=== PATIENT | female | born 1940 | race Caucasian/White ===

== ENCOUNTER 2016-05-22 11:56 | Outpatient (CLI) | payer MEDICARE, OTHER | END 2016-05-22 11:57 | disposition home or self-care (01) | DX: R50.2 Drug induced fever (principal); R19.7 Diarrhea, unspecified ==

== ENCOUNTER 2016-08-21 10:21 | Outpatient (CLI) | payer MEDICARE, OTHER | END 2016-08-21 10:22 | disposition home or self-care (01) | DX: R91.8 Other nonspecific abnormal finding of lung field (principal) ==

== ENCOUNTER 2016-09-09 17:56 | Outpatient (CLI) | payer MEDICARE, OTHER | END 2016-09-09 17:57 | disposition critical access hospital (66) | DX: S01.81XA Laceration without foreign body of other part of head, initial encounter (principal); W07.XXXA Fall from chair, initial encounter; W22.8XXA Striking against or struck by other objects, initial encounter; Y92.008 Other place in unspecified non-institutional (private) residence as the place of occurrence of the external cause | CPT/HCPCS: A0425; A0429 ==

== ENCOUNTER 2016-09-09 18:18 | Emergency (ER) | payer MEDICARE, OTHER ==
[2016-09-09] MEDS ORDERED: ACETAMINOPHEN 325 MG TABLET PO STA (19:03)
--- NOTE | 2016-09-09 19:03 | ED Physician Documentation ---
PD HPI HEAD INJURY - Stated complaint Stated Complaint: HEAD LAC - Chief complaint Chief Complaint: Laceration - History obtained from History obtained from: Patient - History of Present Illness Mechanism of head injury: Fell (She has chronically bad balance, she was getting out of a chair and slipped and hit the edge of the door with her forehead. No loss of consciousness. She has a mild headache and mild bilateral knee pain. She is up-to-date on tetanus. She is not anticoagulated.) Review of Systems Constitutional: denies: Fever, Chills Nose: denies: Rhinorrhea / runny nose, Congestion Respiratory: denies: Dyspnea, Cough GI: denies: Abdominal Pain, Nausea, Vomiting PD PAST MEDICAL HISTORY - Present Medications Home Medications: Ambulatory Orders Medication Instructions Recorded Confirmed Acyclovir 1 tab PO .FREQ 09/09/16 09/09/16 Acyclovir [Zovirax] 0 mg TOP .FREQ 09/09/16 09/09/16 Ezetimibe [Zetia] 1 tab PO DAILY 09/09/16 09/09/16 Furosemide [Lasix] 1 tab PO .FREQ 09/09/16 09/09/16 [place]-3 Acid Ethyl Esters [Lovaza] 1 tab PO DAILY 09/09/16 09/09/16 Telmisartan/Hydrochlorothiazid 0.5 tab PO DAILY 09/09/16 09/09/16 [Micardis Hct 40-12.5 mg Tablet] - Allergies Allergies/Adverse Reactions: Allergies Allergy/AdvReac Type Severity Reaction Status Date / Time gabapentin [From Neurontin] Allergy Unknown Verified 09/09/16 18:30 PD ED PE NORMAL - Vitals Vital signs reviewed: Yes - General General: Alert and oriented X 3, No acute distress - HEENT HEENT: PERRL, EOMI, Other (8cm vertical laceration right in the middle of the forehead) - Neck Neck: Supple, no meningeal sign, No bony TTP - Extremities Extremities: Other (Mild tenderness both anterior knees with good range of motion, no other extremity tenderness.) - Neuro Neuro: Alert and oriented X 3, surface plate finisher 2-12 intact, No motor deficit, No sensory deficit, Normal speech - Psych Psych: Normal mood, Normal affect Results - Vitals Vitals: Vital Signs - 24 hr 09/09/16 09/09/16 18:28 22:27 Temperature 36.3 C L Heart Rate 69 76 Respiratory 18 16 Rate Blood Pressure 144/73 H 138/74 H O2 Saturation 100 100 Oxygen O2 Source Room air - Rads (name of study) CT head Radiology: EMP read contemporaneously (No acute process, possible 10 mm right internal carotid aneurysm) Bilateral knee x-rays Radiology: EMP read contemporaneously (Left knee osteoarthritis, right knee arthroplasty, no acute disease) CT Cspine Radiology: EMP read contemporaneously (Dege3n chgs) Procedures - Laceration (location) face Length in cm: 8 Wound type: Linear Anesthesia: Lidocaine 1% with epi Wound Preparation: Irrigated copiously NS Skin layer closure: Other (Below the hairline a running 6-0 suture was placed, above the hairline a few interrupted 5-0 Vicryls were placed.) Other: Tetanus UTD Complexity: Simple PD MEDICAL DECISION MAKING - ED course ED course: Discussed results of CT and need for followup MRA with patient. She did have more neck pain after initial evaluation was sent back for CT of the neck. Departure - Departure Disposition: 01 Home, Self Care Clinical Impression: Neck pain Facial laceration Qualifiers: Encounter type: initial encounter Qualified Code(s): S01.81XA - Laceration without foreign body of other part of head, initial encounter Fall Qualifiers: Encounter type: initial encounter Qualified Code(s): W19.XXXA - Unspecified fall, initial encounter Head injury Qualifiers: Encounter type: initial encounter Qualified Code(s): S09.90XA - Unspecified injury of head, initial encounter Condition: Good Record reviewed to determine appropriate education?: Yes Instructions: ED Laceration Facial Sutr Tape Comments: As discussed there is a possible aneurysm in the right internal carotid artery a CAT scan, call Dr. rome on Sunday care. He will arrange for further testing for you. Wash the wound briefly but in general keep it dry and covered. Come back for any signs of infection which would include: Redness, swelling, drainage, increased pain, or fevers. Followup with your doctor in 6 days for suture removal. Your blood pressure was elevated today on check in to the emergency department. This does not mean that you have hypertension, it is a common phenomenon to check into the emergency department and have elevated blood pressure. I recommend that you see your primary care physician within the week to have it rechecked when you're feeling better. Discharge Date/Time: 09/09/16 22:27
[2016-09-09] MEDS ORDERED: LIDOCAINE 1%-EPI 1:100000 20 ML MDV ONE (19:04)
[2016-09-09] MEDS ORDERED: ACETAMINOPHEN 325 MG TABLET PO ONE (19:08)
--- NOTE | 2016-09-09 20:33 | CT Preliminary Report ---
Exam: CT Head W/O IMPRESSION: 1. No evidence of acute intracranial process. 2. 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 Further crissy luation with intracranial MRA is recommended. [facility] SITE ID: [id number]
--- NOTE | 2016-09-09 20:36 | CT Report ---
EXAM: CT HEAD EXAM DATE: 09/09/2016 08:15 PM. CLINICAL HISTORY: Head inj. COMPARISON: MRI brain 06/24/2011. TECHNIQUE: Multiaxial CT images were obtained from the foramen magnum to the vertex. IV contrast: Non e. Reformats: Coronal. In accordance with CT protocol optimization, one or more of the following dose reduction techniques w ere utilized for this exam: automated exposure control, adjustment of mA and/or KV based on patient s ize, or use of iterative reconstructive technique. FINDINGS: Parenchyma: No intraparenchymal hemorrhage. No evidence of mass, midline shift, or CT findings of inf arction. Rayo-white differentiation is distinct. Extraaxial Spaces: Normal for age. No subdural or epidural collections identified. Ventricles: Normal in size and position. Sinuses: Imaged paranasal sinuses, orbits, and mastoids show no significant abnormality. Bones: No evidence of fracture or calvarial defect. Other: Near midline forehead scalp laceration is noted. There is a round hypoattenuating lesion locat ed just to the right of the sella turcica measuring 10 x 9 mm on series 3, image 5. Though nonspecifi c, this could represent an aneurysm of the cavernous segment internal carotid artery. IMPRESSION: 1. No evidence of acute intracranial process. 2. 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 Further crissy luation with intracranial MRA is recommended. [facility] Referring Provider Line: [phone] SITE ID: [id number]
--- NOTE | 2016-09-09 20:38 | XRAY Preliminary Report ---
Exam: XR Knee 3 View BILAT IMPRESSION: 1. Expected postoperative changes from right total knee arthroplasty. 2. Tricompartmental osteoarthritis of the left knee. 3. No evidence of acute osseous abnormality. [facility] SITE ID: [id number]
--- NOTE | 2016-09-09 20:41 | XRAY Report ---
EXAMS: 1. Right Knee Radiography 2. Left Knee Radiography EXAM DATE:09/09/2016 08:15 PM. CLINICAL HISTORY:Bilateral knee injury. COMPARISON: None. TECHNIQUE: 3 views each. FINDINGS: Right Knee: Bones: Normal. No fractures or bone lesions. Joints: Postoperative changes from a 3 part total knee arthroplasty are noted. Prosthetic components are in expected position. Normal alignment. No effusion. Soft Tissues: Normal. No soft tissue swelling. Left Knee: Bones: Normal. No fractures or bone lesions. Joints: Tricompartmental marginal osteophyte formation is present, most pronounced in the medial and lateral compartments. Normal alignment. No effusion. Soft Tissues: Normal. No soft tissue swelling. IMPRESSION: 1. Expected postoperative changes from right total knee arthroplasty. 2. Tricompartmental osteoarthritis of the left knee. 3. No evidence of acute osseous abnormality. [facility] Referring Provider Line: [phone] SITE ID: [id number]
--- NOTE | 2016-09-09 22:11 | CT Preliminary Report ---
Exam: CT Cervical Spine W/O IMPRESSION: 1. No acute fracture or dislocation seen. 2. Multilevel degenerative changes, most severe at C5-C6 and C6-C7. [facility] SITE ID: [id number]
--- NOTE | 2016-09-09 22:13 | CT Report ---
EXAM: CT CERVICAL SPINE WITHOUT CONTRAST DATE: 09/09/2016 09:55 PM HISTORY: Neck pain after injury. COMPARISONS: None. TECHNIQUE: Thin-section axial images were acquired of the cervical spine without contrast. Post-proce ssing: Coronal and sagittal reformats. Other: None. In accordance with CT protocol optimization, one or more of the following dose reduction techniques w ere utilized for this exam: automated exposure control, adjustment of mA and/or KV based on patient s ize, or use of iterative reconstructive technique. FINDINGS: Alignment: Unremarkable. Bones: No fracture or bone lesion. Interspace Levels/Facets: Mild degenerative disk disease at C4-C5. Moderate degenerative disk disease at C5-C6 and C6-C7. Degen erative joint disease in the facet joints at all levels, right worse than left. Multilevel foraminal stenosis. Posterior disk osteophyte complex impinging the cord at C5-C6 and C6-C7. Other: The paravertebral and prevertebral soft tissues are normal. The lung apices are clear. Mild ri ght carotid artery calcifications. IMPRESSION: 1. No acute fracture or dislocation seen. 2. Multilevel degenerative changes, most severe at C5-C6 and C6-C7. [facility] Referring Provider Line: [phone] SITE ID: [id number]
[2016-09-09 22:27] VITALS: BP 138/74
== END 2016-09-09 22:27 | disposition home or self-care (01) ==
LOC: EDUNIT# → ED 18:18
DX: S01.81XA Laceration without foreign body of other part of head, initial encounter (principal); W01.198A Fall on same level from slipping, tripping and stumbling with subsequent striking against other object, initial encounter; Y92.019 Unspecified place in single-family (private) house as the place of occurrence of the external cause; M54.2 Cervicalgia; R03.0 Elevated blood-pressure reading, without diagnosis of hypertension; M17.12 Unilateral primary osteoarthritis, left knee
CPT/HCPCS: 12015; 70450; 72125; 99283; 99284

== ENCOUNTER 2016-09-14 16:30 | Outpatient (CLI) | payer MEDICARE, OTHER | END 2016-09-14 16:31 | disposition home or self-care (01) | DX: R93.0 Abnormal findings on diagnostic imaging of skull and head, not elsewhere classified (principal) ==

== ENCOUNTER 2016-09-18 11:09 | Outpatient (CLI) | payer MEDICARE, OTHER | END 2016-09-18 11:10 | disposition home or self-care (01) | DX: I10 Essential (primary) hypertension (principal); E78.2 Mixed hyperlipidemia; Z79.899 Other long term (current) drug therapy ==

== ENCOUNTER 2016-09-29 08:48 | Outpatient (CLI) | payer MEDICARE, OTHER ==
--- NOTE | 2016-10-03 07:24 | Mammography Report ---
DIGITAL BILATERAL SCREENING MAMMOGRAM: 09/29/2016 CLINICAL HISTORY: This is a 75-year-old female in for routine screening mammogram. Patient has no f amily history of breast cancer. Patient has had no prior breast surgeries. COMPARISON: 02/22/2010, 05/01/2011, 04/17/2012, 06/25/2013, 09/09/2014 TECHNIQUE: Craniocaudad and oblique lateral views of each breast were obtained with Hologic Full Fie ld digital mammography. FINDINGS: Breast parenchyma consists of scattered fibroglandular densities especially in each subare olar region and in the upper outer quadrant of the anterior half of each breast. No significant clus ters of calcification are seen. No significant masses are noted. No significant change is seen. IMPRESSION: BREASTS APPEAR RADIOGRAPHICALLY BENIGN. BIRADS 1 - NEGATIVE. RECOMMENDATIONS: Annual bilateral screening mammography. STANDARD QUALIFYING STATEMENTS 1. This examination was reviewed with the aid of Computer-Aided Detection (CAD). 2. A negative or benign imaging report should not delay biopsy if clinically suspicious findings are present. Consider surgical consultation if warranted. More than 5% of cancers are not identified by i maging. 3. Dense breasts may obscure an underlying neoplasm. JOB #: [id number] EXT JOB #:[id number]
== END 2016-09-29 08:49 | disposition home or self-care (01) ==
LOC: DI 08:48
PROVIDERS: ATTEND Physician Assistant Medical
DX: Z12.31 Encounter for screening mammogram for malignant neoplasm of breast (principal)
CPT/HCPCS: 77067

== ENCOUNTER 2017-01-03 16:28 | Emergency (ER) | payer MEDICARE, OTHER ==
[2017-01-03] MEDS ORDERED: ASPIRIN CHEW 81 MG TABLET PO STA (17:40)
--- NOTE | 2017-01-03 17:40 | ED Physician Documentation ---
PD HPI ABD PAIN - Stated complaint Stated Complaint: ABD PAIN INTO TORSO - Chief complaint Chief Complaint: Abd Pain - History obtained from History obtained from: Patient - History of Present Illness Timing - onset: How many hours ago (3.5) Timing - duration: Hours (1) Timing - details: Now resolved Pain level max: 7 Pain level now: 0 Quality: Cramping, Aching, Pain Location: Epigastric Radiation: Chest Improved by: Other (nothing). No: Eating Worsened by: Other (nothing). No: Eating, Moving, Breathing, Position, Palpation Associated symptoms: No: Fever, Nausea, Vomiting, Hematemesis, Diarrhea, Constipation, Melena, Hematochezia, Dysuria, Hematuria, Chest pain Similar symptoms before: Has not had sx before Recently seen: Not recently seen Review of Systems Ten Systems: 10 systems reviewed and negative Constitutional: denies: Fever, Chills Ears: denies: Ear pain Nose: denies: Rhinorrhea / runny nose, Congestion GI: denies: Vomiting : denies: Dysuria, Frequency, Hesitancy Musculoskeletal: denies: Neck pain, Back pain Neurologic: denies: Focal weakness, Numbness, Headache PD PAST MEDICAL HISTORY - Past Medical History Past Medical History: Yes Cardiovascular: Hypertension - Past Surgical History General: Cholecystectomy, Appendectomy /DREDGE OR BARGE SHORE HAND: Hysterectomy - Present Medications Home Medications: Ambulatory Orders Medication Instructions Recorded Confirmed Acyclovir 1 tab PO .FREQ 09/09/16 09/09/16 Acyclovir [Zovirax] 0 mg TOP .FREQ 09/09/16 09/09/16 Ezetimibe [Zetia] 1 tab PO DAILY 09/09/16 09/09/16 Furosemide [Lasix] 1 tab PO .FREQ 09/09/16 09/09/16 [place]-3 Acid Ethyl Esters [Lovaza] 1 tab PO DAILY 09/09/16 09/09/16 Telmisartan/Hydrochlorothiazid 0.5 tab PO DAILY 09/09/16 09/09/16 [Micardis Hct 40-12.5 mg Tablet] - Allergies Allergies/Adverse Reactions: Allergies Allergy/AdvReac Type Severity Reaction Status Date / Time gabapentin [From Neurontin] Allergy Unknown Verified 01/03/17 16:47 - Social History Does the pt smoke?: No Smoking Status: Never smoker Does the pt drink ETOH?: Yes ETOH Use: Wine Does the pt have substance abuse?: No - Immunizations Immunizations are current?: Yes PD ED PE NORMAL - Vitals Vital signs reviewed: Yes - General General: Alert and oriented X 3, No acute distress, Well developed/nourished - HEENT HEENT: PERRL, Moist mucous membranes - Neck Neck: Supple, no meningeal sign - Cardiac Cardiac: RRR, Strong equal pulses - Respiratory Respiratory: No respiratory distress, Clear bilaterally - Abdomen Abdomen: Soft, Non tender, Non distended - Derm Derm: Warm and dry - Extremities Extremities: No edema, No calf tenderness / cord - Neuro Neuro: Alert and oriented X 3 - Psych Psych: Normal mood, Normal affect Results - Vitals Vitals: Vital Signs - 24 hr 01/03/17 01/03/17 01/03/17 16:42 18:09 18:41 Temperature 36.3 C L 35.5 C L Heart Rate 72 65 73 Respiratory 20 16 14 Rate Blood Pressure 132/74 H 125/63 124/55 L O2 Saturation 98 99 100 01/03/17 20:32 Temperature Heart Rate 74 Respiratory 18 Rate Blood Pressure 119/51 L O2 Saturation 99 Oxygen O2 Source Room air - EKG (time done) 1745 Rate: Rate (enter#) (64) Rhythm: NSR [place]: Normal Intervals: Normal MS QRS: Normal Ischemia: Normal ST segments - Labs Labs: Laboratory Tests 01/03/17 01/03/17 01/03/17 17:49 17:49 17:49 WBC 6.8 RBC 4.38 Hgb 13.2 Hct 39.2 MCV 89.5 MCH 30.2 MCHC 33.8 RDW 14.2 Plt Count 205 MPV 8.3 Neut # 4.0 Lymph # 2.1 Jerome # 0.4 Eos # 0.1 Baso # 0.1 Absolute Nucleated RBC 0.00 Nucleated RBCs 0.0 Sodium 139 Potassium 3.8 Chloride 103 Carbon Dioxide 29 Anion Gap 7.0 BUN 18 Creatinine 0.8 Estimated GFR (MDRD) 70 L Glucose 98 Calcium 9.2 Total Bilirubin 0.5 AST 27 ALT 25 Alkaline Phosphatase 60 Troponin I < 0.04 Total Protein 7.7 Albumin 4.7 Globulin 3.0 Albumin/Globulin Ratio 1.6 Lipase 37 01/03/17 19:40 WBC RBC Hgb Hct MCV MCH MCHC RDW Plt Count MPV Neut # Lymph # Jerome # Eos # Baso # Absolute Nucleated RBC Nucleated RBCs Sodium Potassium Chloride Carbon Dioxide Anion Gap BUN Creatinine Estimated GFR (MDRD) Glucose Calcium Total Bilirubin AST ALT Alkaline Phosphatase Troponin I < 0.04 Total Protein Albumin Globulin Albumin/Globulin Ratio Lipase - Rads (name of study) cxr Radiology: Prelim report reviewed, EMP read contemporaneously, See rad report ( normal) PD MEDICAL DECISION MAKING - ED course Complexity details: reviewed results, re-evaluated patient, considered differential (No ST elevation ID, no aortic dissection, no PE, no tension pneumothorax, no aortic aneurysm), d/w patient ED course: Patient is a 76-year-old female who presents to the emergency department with 1 hours worth of epigastric abdominal pain that radiated to the mid back. This felt like it wrapped around her sides. No evidence of acute coronary syndrome. Her heart score is 3, putting her at low risk category. Negative 2 hour delta troponin. She is well-appearing, nontoxic. No recurrent symptoms in the emergency department. Unclear etiology of her symptoms at this time, will have her follow-up closely with her PCP for further evaluation and care. We did discuss observation, but patient declines this at this time. Patient counseled regarding signs and symptoms for which I believe and urgent re-evaluation would be necessary. Patient with good understanding of and agreement to plan and is comfortable going home at this time This document was made in part using voice recognition software. While efforts are made to proofread this document, sound alike and grammatical errors may occur. Departure - Departure Disposition: 01 Home, Self Care Clinical Impression: Abdominal pain Qualifiers: Abdominal location: epigastric Qualified Code(s): R10.13 - Epigastric pain Condition: Good Instructions: ED Abdominal Pain Unkn Cause Follow-Up: Gaurav Jaime MD [Primary Care Provider] - Within 1 week Comments: The cause of your pain is unclear tonight. It does not appear to be related to your heart. If this continues to occur, you should return for repeat evaluation. You should have a cardiac stress test with your doctor within the next week Discharge Date/Time: 01/03/17 20:34
[2017-01-03] MEDS ORDERED: ASPIRIN CHEW 81 MG TABLET ONE (17:53)
[2017-01-03] MEDS ORDERED: SODIUM CHLORIDE FLUSH 0.9% 10 ML SYRINGE IVP ONE (17:54)
[2017-01-03 18:03] LABS: BASOPHILS # (AUTO) 0.1 10^3/uL (0.0-0.1); BASOPHILS % (AUTO) 1.1 %; EOSINOPHILS # (AUTO) 0.1 10^3/uL (0.0-0.7); EOSINOPHILS % (AUTO) 2.2 %; HCT - HEMATOCRIT 39.2 % (37.0-47.0); HGB - HEMOGLOBIN 13.2 g/dL (12.0-16.0); LYMPHOCYTES # (AUTO) 2.1 10^3/uL (1.5-3.5); LYMPHOCYTES % (AUTO) 31.1 %; MEAN CORPUSCULAR HEMOGLOBIN 30.2 pg (27.0-31.0); MEAN CORPUSCULAR HGB CONC 33.8 g/dL (32.0-36.0); MEAN CORPUSCULAR VOLUME 89.5 fL (81.0-99.0); MEAN PLATELET VOLUME 8.3 fL (7.9-10.8); MONOCYTES # (AUTO) 0.4 10^3/uL (0.0-1.0); MONOCYTES % (AUTO) 6.5 %; NEUTROPHILS % (AUTO) 59.1 %; RED BLOOD COUNT 4.38 10^6/uL (4.20-5.40); RED CELL DISTRIBUTION WIDTH 14.2 % (12.0-15.0); UNCORRECTED WHITE BLOOD COUNT 6.8 x10^3/uL; WHITE BLOOD COUNT 6.8 x10^3/uL (4.8-10.8)
[2017-01-03 18:11] LABS: ALBUMIN/GLOBULIN RATIO 1.6 (1.0-2.2); BILIRUBIN,TOTAL 0.5 mg/dL (0.2-1.0); CALCIUM 9.2 mg/dL (8.5-10.3); CREATININE 0.8 mg/dL (0.4-1.0); POTASSIUM 3.8 mmol/L (3.5-5.0); TOTAL PROTEIN 7.7 g/dL (6.7-8.2)
--- NOTE | 2017-01-03 18:25 | XRAY Preliminary Report ---
Exam: XR Chest 1 View IMPRESSION: Normal single view chest. [facility] SITE ID: [id number]
--- NOTE | 2017-01-03 18:41 | XRAY Report ---
EXAM: CHEST RADIOGRAPHY EXAM DATE: 01/03/2017 05:48 p.m. CLINICAL HISTORY: Chest pain. COMPARISON: 08/21/2016. TECHNIQUE: 1 view. FINDINGS: Lungs/Pleura: No focal opacities evident. No pleural effusion. No pneumothorax. Mediastinum: Within exam limitations, cardiomediastinal contour is normal. Other: None. IMPRESSION: Normal single-view chest. [facility] Referring Provider Line: [phone] SITE ID: [id number]
[2017-01-03 20:34] VITALS: BP 119/51
== END 2017-01-03 20:34 | disposition home or self-care (01) ==
LOC: ED 16:28
DX: R10.13 Epigastric pain (principal); I10 Essential (primary) hypertension; I45.9 Conduction disorder, unspecified
CPT/HCPCS: 36415; 71010; 80053; 83690; 84484; 85025; 93005; 99284; A9270

== ENCOUNTER 2017-04-11 09:26 | Outpatient (CLI) | payer MEDICARE, OTHER | END 2017-04-11 09:27 | disposition home or self-care (01) | LOC: SC 09:26 | PROVIDERS: ATTEND Nurse Practitioner Family | DX: G47.33 Obstructive sleep apnea (adult) (pediatric) (principal) | CPT/HCPCS: 99214; G0463; 99212 ==

== ENCOUNTER 2017-05-17 11:27 | Outpatient (CLI) | payer MEDICARE, OTHER ==
--- NOTE | 2017-05-18 09:02 | CT Report ---
DATE OF SERVICE: 05/17/[address]: 05/17/2017 COMPARISON: Sinus CT 09/09/2016. INDICATION: Chronic ethmoidal sinusitis. TECHNIQUE: Axial noncontrast imaging of the paranasal sinuses was performed with coronal and sagittal reformats. In accordance with CT protocol optimization, one or more of the following dose reduction techniques were utilized for this exam: Automated exposure control, adjustment of mA and/or KV based on patient size, or use of iterative reconstructive technique. FINDINGS: There is chronic appearing right frontal and right ethmoid sinus disease. There is hypertrophic bone formation and mucosal thickening of the inferior right maxillary sinus with slight atrophy of the sinus. The right ostiomeatal unit is occluded by frontal sinusitis. The left ostiomeatal unit is widely patent. The sphenoid sinuses are clear. The mastoid air cells appear well aerated. No fracture or bone lesion is seen in the field of view. Limited base of the brain is grossly unremarkable. Soft tissues and orbits appear unremarkable apart from postoperative lenses. IMPRESSION: Chronic right frontal and ethmoid sinus disease. Chronic right maxillary sinus disease with atrophy of the sinus, hypertrophic bone formation and mucosal thickening. Correlate clinically for silent sinus syndrome. TD: 05/17/2017 21:17 TAO
== END 2017-05-17 11:28 | disposition home or self-care (01) ==
LOC: DI 11:27
PROVIDERS: ATTEND Otolaryngology
DX: J32.2 Chronic ethmoidal sinusitis (principal); J32.1 Chronic frontal sinusitis
CPT/HCPCS: 70486

== ENCOUNTER 2017-06-28 13:18 | Outpatient (CLI) | payer MEDICARE, OTHER ==
[2017-06-28 17:41] LABS: CALCIUM 8.9 mg/dL (8.5-10.3); CREATININE 0.7 mg/dL (0.4-1.0)
== END 2017-06-28 13:19 | disposition home or self-care (01) ==
LOC: LAB.F 13:18
PROVIDERS: ATTEND Internal Medicine
DX: I87.2 Venous insufficiency (chronic) (peripheral) (principal)
CPT/HCPCS: 36415; 80048

== ENCOUNTER 2017-07-18 08:00 | Outpatient (CLI) | payer MEDICARE, OTHER ==
[2017-07-18 17:16] LABS: CALCIUM 9.1 mg/dL (8.5-10.3); CREATININE 0.7 mg/dL (0.4-1.0)
== END 2017-07-18 08:01 | disposition home or self-care (01) ==
LOC: LAB.F 08:00
PROVIDERS: ATTEND Internal Medicine
DX: I10 Essential (primary) hypertension (principal)
CPT/HCPCS: 36415; 80048

== ENCOUNTER 2017-09-20 14:30 | Outpatient (CLI) | payer MEDICARE, OTHER ==
--- NOTE | 2017-09-25 12:56 | Mammography Report ---
DIGITAL SCREENING MAMMOGRAM: 09/20/2017 CLINICAL INDICATION: A 76-year-old nulliparous patient for screening. COMPARISON: 09/2016, 08/2014, 06/2013, 04/2012, 04/2011, 02/2010. TECHNIQUE: Routine CC and MLO projections were obtained of the breasts. FINDINGS: The breasts demonstrate scattered fibroglandular densities bilaterally. There has been a possible increase in calcifications in the right upper outer central breast, with a possible obscured nodule. Further evaluation with spot magnification views and possible ultrasound is recommended. No mammographically suspicious findings are appreciated in the left breast. IMPRESSION: INCOMPLETE EXAMINATION. RECOMMENDATION: Additional evaluation of the right breast as above. BI-RADS CATEGORY 0 - INCOMPLETE. STANDARD QUALIFYING STATEMENTS: 1. This examination was reviewed with the aid of Computer-Aided Detection (CAD) . 2. A negative or benign imaging report should not delay biopsy if clinically suspicious findings are present. Consider surgical consultation if warranted. More than 5 % of cancers are not identified by imaging. 3. Dense breasts may obscure an underlying neoplasm. TD: 09/25/2017 12:40 TAO
== END 2017-09-20 14:31 | disposition home or self-care (01) ==
LOC: DI 14:30
PROVIDERS: ATTEND Physician Assistant Medical
DX: Z12.31 Encounter for screening mammogram for malignant neoplasm of breast (principal)
CPT/HCPCS: 77067

== ENCOUNTER 2017-09-25 11:09 | Outpatient (CLI) | payer MEDICARE, OTHER ==
[2017-09-25 17:45] LABS: BASOPHILS # (AUTO) 0.1 10^3/uL (0.0-0.1); EOSINOPHILS # (AUTO) 0.2 10^3/uL (0.0-0.7); EOSINOPHILS % (AUTO) 2.9 %; HGB - HEMOGLOBIN 12.2 g/dL (12.0-16.0); LYMPHOCYTES # (AUTO) 1.6 10^3/uL (1.5-3.5); LYMPHOCYTES % (AUTO) 29.6 %; MEAN CORPUSCULAR HEMOGLOBIN 29.6 pg (27.0-31.0); MEAN CORPUSCULAR HGB CONC 32.8 g/dL (32.0-36.0); MEAN CORPUSCULAR VOLUME 90.2 fL (81.0-99.0); MEAN PLATELET VOLUME 9.1 fL (7.9-10.8); MONOCYTES # (AUTO) 0.4 10^3/uL (0.0-1.0); MONOCYTES % (AUTO) 6.7 %; NEUTROPHILS # (AUTO) 3.2 10^3/uL (1.5-6.6); NEUTROPHILS % (AUTO) 59.8 %; PLT - PLATELET COUNT 191 10^3/uL (130-450); RED CELL DISTRIBUTION WIDTH 14.4 % (12.0-15.0); WHITE BLOOD COUNT 5.4 x10^3/uL (4.8-10.8)
[2017-09-25 18:04] LABS: ALBUMIN 4.1 g/dL (3.2-5.5); ALBUMIN/GLOBULIN RATIO 1.3 (1.0-2.2); ALKALINE PHOSPHATASE 44 IU/L (42-121); ALT ALANINE AMINOTRANSFERASE 22 IU/L (10-60); AST ASPARTATE AMINOTRANSFERASE 28 IU/L (10-42); BILIRUBIN,TOTAL 0.8 mg/dL (0.2-1.0); BUN - BLOOD UREA NITROGEN 19 mg/dL (6-20); CALCIUM 9.1 mg/dL (8.5-10.3); CARBON DIOXIDE - CO2 26 mmol/L (21-32); CHLORIDE 103 mmol/L (101-111); CHOL/HDL RATIO 3.8 (<4.4); CHOLESTEROL 221 mg/dL; CREATININE 0.7 mg/dL (0.4-1.0); GFR - MDRD 81 (>89); GLUCOSE 90 mg/dL (70-100); HDL CHOLESTEROL 58 mg/dL; LDL CHOLESTEROL,CALCULATED 140 mg/dL; LDL/HDL RATIO 2.4 (<4.4); SODIUM 138 mmol/L (135-145); TOTAL PROTEIN 7.3 g/dL (6.7-8.2); VLDL CHOLESTEROL 23 mg/dL
== END 2017-09-25 11:10 | disposition home or self-care (01) ==
LOC: LAB.F 11:09
PROVIDERS: ATTEND Physician Assistant Medical
DX: Z79.899 Other long term (current) drug therapy (principal); E78.2 Mixed hyperlipidemia; I10 Essential (primary) hypertension
CPT/HCPCS: 36415; 80053; 80061; 83721; 84443; 85025

== ENCOUNTER 2017-10-01 09:31 | Outpatient (CLI) | payer MEDICARE, OTHER ==
--- NOTE | 2017-10-01 11:43 | Mammography Report ---
DIAGNOSTIC RIGHT MAMMOGRAM: 10/01/2017 CLINICAL INDICATION: Possible increase in calcifications right upper outer quadrant. TECHNIQUE: Right true lateral and spot magnification views. COMPARISON: 09/20/2017, 09/29/2016 09/09/2014, 06/25/2013, 04/17/2012, 05/01/2011, 02/22/2010. FINDINGS: The right breast demonstrates heterogeneously dense fibroglandular parenchyma. Coarse and punctate, typically benign calcifications are present. The calcifications in question demonstrate predominantly punctate morphology on spot magnification views. No definite pleomorphism is seen. IMPRESSION: PROBABLE BENIGN PUNCTATE CALCIFICATIONS. RECOMMENDATION: Diagnostic right mammogram in 6 months, to assure stability. BI-RADS CATEGORY 3 - PROBABLE BENIGN FINDINGS. STANDARD QUALIFYING STATEMENTS: 1. This examination was reviewed with the aid of Computer-Aided Detection (CAD). 2. A negative or benign imaging report should not delay biopsy if clinically suspicious findings are present. Consider surgical consultation if warranted. More than 5% of cancers are not identified by imaging. 3. Dense breasts may obscure an underlying neoplasm. TD: 10/01/2017 11:29
== END 2017-10-01 09:32 | disposition home or self-care (01) ==
LOC: DI 09:31
PROVIDERS: ATTEND Physician Assistant Medical
DX: R92.2 Inconclusive mammogram (principal)

== ENCOUNTER 2017-10-15 10:25 | Outpatient (CLI) | payer MEDICARE, OTHER ==
--- NOTE | 2017-10-15 20:32 | CT Report ---
CT SCAN OF THE PARANASAL SINUSES: 10/15/2017 HISTORY: Chronic sinusitis. COMPARISON: 05/17/2017 TECHNIQUE: Axial noncontrast images of the sinuses with sagittal and coronal reconstructions. In accordance with CT protocol optimization, one or more of the following dose reduction techniques were utilized for this exam: Automated exposure control, adjustment of mA and/or KV based on patient size, or use of iterative reconstructive technique. FINDINGS: Mastoid air cells and middle ear cavities normally aerated. Sphenoid sinus clear. Since the prior study, there are new postsurgical changes in the right ethmoid and right maxillary sinuses and ostiomeatal complex region and right nasal cavity. A small amount of residual right ethmoid and maxillary sinus membrane thickening remains, singificantly decreased in the ethmoid sinus since prior. In the floor of the right maxillary sinus, there is hypertrophic bone formation medially with increased adjacent soft tissue density laterally immediately superior to 3 dental implants. There is a small focus of bone dehiscence along the anterolateral wall of the right maxillary sinus measuring 4-5 mm, question prior Kennedy-Steven procedure. Small area of chronic dehiscence medial wall right orbit. Corresponding left maxillary and left ethmoid sinuses are clear. Persistent membrane thickening right frontal sinus, decreased compared with prior. Clear left frontal sinus. IMPRESSION: SINCE 05/17/2017, THE PATIENT HAS UNDERGONE SURGERY ON THE RIGHT MAXILLARY AND ETHMOID SINUSES, RIGHT NASAL CAVITY AND OSTIOMEATAL COMPLEX. THERE IS IMPROVED AERATION OF THE RIGHT ETHMOID AND FRONTAL SINUSES WITH RESIDUAL MEMBRANE THICKENING STILL PRESENT RIGHT FRONTAL SINUS. CHRONIC POTENTIAL POSTSURGICAL/POST-INFLAMMATORY CHANGE INFERIOR RIGHT MAXILLARY SINUS, STABLE. THE LEFT SIDED PARANASAL SINUSES REMAIN ESSENTIALLY CLEAR. TD: 10/15/2017 17:36 TAO
== END 2017-10-15 10:26 | disposition home or self-care (01) ==
LOC: DI 10:25
PROVIDERS: ATTEND Otolaryngology
DX: J32.4 Chronic pansinusitis (principal); M79.651 Pain in right thigh; Z78.0 Asymptomatic menopausal state
CPT/HCPCS: 70486; 76882; 77080

== ENCOUNTER 2017-10-15 10:26 | Outpatient (CLI) | payer MEDICARE, OTHER ==
--- NOTE | 2017-10-15 19:11 | Ultrasound Report ---
LIMITED EXTREMITY NONVASCULAR ULTRASOUND: 10/15/2017 HISTORY: Pain right lateral thigh. TECHNIQUE: Real-time scanning by the lingo cleaner of the lateral thigh in the area of intermittent pain. FINDINGS: No cystic or solid mass, abnormal fluid collection, or evidence of fat plane distortion appreciated. IMPRESSION: NEGATIVE RIGHT LATERAL THIGH ULTRASOUND. AN ETIOLOGY FOR PAIN IS NOT IDENTIFIED ON THIS STUDY. TD: 10/15/2017 16:12
--- NOTE | 2017-10-18 15:54 | DEXA Report ---
DEXA SCAN: 10/15/2017 HISTORY: Postmenopausal female. Pain right thigh. History of osteopenia. TECHNIQUE: Dual energy x-ray absorptiometry (DXA) was performed on a [employer] system. Regions measured are the AP spine, femoral neck, and, if needed, forearm. COMPARISON: 11/01/2015. In accordance with the International Society for Clinical Densitometry (ISCD) guidelines, data from previous exams may be reanalyzed using current recommendations and techniques. This is done to allow a more accurate basis for comparison with the current study. FINDINGS The data for the lumbar spine is as follows: REGION BMD (g/cm/cm) T-SCORE Z-SCORE L1 1.163 0.3 0.9 L2 1.270 0.6 1.2 L3 1.330 1.1 1.7 L4 1.484 2.4 3.0 L1-L3 1.262 0.8 1.4 NOTE: All evaluable vertebrae are used for classification. The data for the hip is as follows: REGION BMD (g/cm/cm) T-SCORE Z-SCORE Neck 0.763 -2.0 -0.7 TOTAL 0.823 -1.5 -0.5 NOTE: The femoral neck or total proximal femur, whichever is lowest, is used for classification. DEXA RESULTS SUMMARY: Spine SCAN DATE AGE BMD T-SCORE BMD CHANGE VS BASELINE BMD CHANGE VS PREVIOUS 10/15/2017 [age] 1.262 -- 0.038* 3.1* 10/31/2017 [age] 1[age]224 -- -- -- * Denotes significant change at the 95% confidence level. Denotes dissimilar scan types or analysis methods. DEXA RESULTS SUMMARY: Total hip SCAN DATE AGE BMD T-SCORE BMD CHANGE VS BASELINE BMD CHANGE VS PREVIOUS 10/15/2017 76.8 0.823 -- -0.008 -1.0 11/01/2015 [age] 0[age]831 -- -- -- * Denotes significant change at the 95% confidence level. Denotes dissimilar scan types or analysis methods. IMPRESSION: WHO CLASSIFICATION BASED ON THE INTERNATIONAL REFERENCE STANDARD IS OSTEOPENIA (REFERENCE LEFT FEMORAL NECK). THE FRACTURE RISK IS INCREASED. RECOMMENDATION: Patients with diagnosis of osteoporosis or osteopenia should have regular bone mineral density assessment. For those eligible for Medicare, routine testing is allowed once every 2 years. Testing frequency can be increased for patients who have rapidly progressing disease or for those who are receiving medical therapy to restore bone mass. COMMENT World Health Organization (WHO) definitions for osteoporosis and osteopenia: NORMAL BMD: T-score at 1.0 or higher, fracture risk is low. OSTEOPENIA BMD: T-score between 1.0 and -2.5, fracture risk is increased. OSTEOPOROSIS BMD: T-score at 2.5 or lower, fracture risk high. National Osteoporosis Foundation recommends: 1. Obtain adequate dietary calcium (at least 1200 mg per day) and vitamin D (400 -800 international units per day). 2. Participate, as appropriate, in regular weightbearing and muscle- strengthening exercise. 3. Avoid tobacco use and reduce alcohol and caffeine intake. 4. For more detailed information see the website at www.NOF.org. TD: 10/15/2017 17:09 TAO
== END 2017-10-15 10:27 | disposition home or self-care (01) ==
LOC: DI 10:26
PROVIDERS: ATTEND Physician Assistant Medical
DX: M79.651 Pain in right thigh (principal)
CPT/HCPCS: 76882; 77080

== ENCOUNTER 2018-01-10 15:37 | Emergency (ER) | payer MEDICARE, OTHER ==
[2018-01-10 16:25] LABS: BASOPHILS # (AUTO) 0.1 10^3/uL (0.0-0.1); BASOPHILS % (AUTO) 1.4 %; EOSINOPHILS # (AUTO) 0.2 10^3/uL (0.0-0.7); EOSINOPHILS % (AUTO) 2.7 %; HGB - HEMOGLOBIN 12.5 g/dL (12.0-16.0); LYMPHOCYTES # (AUTO) 1.8 10^3/uL (1.5-3.5); LYMPHOCYTES % (AUTO) 27.7 %; MEAN CORPUSCULAR HEMOGLOBIN 30.3 pg (27.0-31.0); MEAN CORPUSCULAR HGB CONC 34.3 g/dL (32.0-36.0); MEAN CORPUSCULAR VOLUME 88.4 fL (81.0-99.0); MEAN PLATELET VOLUME 8.7 fL (7.9-10.8); MONOCYTES # (AUTO) 0.4 10^3/uL (0.0-1.0); MONOCYTES % (AUTO) 6.2 %; NEUTROPHILS # (AUTO) 4.1 10^3/uL (1.5-6.6); PLT - PLATELET COUNT 210 10^3/uL (130-450); RED BLOOD COUNT 4.12 10^6/uL (4.20-5.40); RED CELL DISTRIBUTION WIDTH 14.2 % (12.0-15.0); WHITE BLOOD COUNT 6.7 x10^3/uL (4.8-10.8)
[2018-01-10 16:38] LABS: ALBUMIN 4.2 g/dL (3.2-5.5); ALBUMIN/GLOBULIN RATIO 1.2 (1.0-2.2); BILIRUBIN,TOTAL 0.7 mg/dL (0.2-1.0); CALCIUM 9.3 mg/dL (8.5-10.3); CREATININE 0.6 mg/dL (0.4-1.0); TOTAL PROTEIN 7.7 g/dL (6.7-8.2)
--- NOTE | 2018-01-10 16:57 | XRAY Report ---
Reason: soa Procedure Date: 01/10/2018 Accession Number: [id number] / [id number] Procedure: XR - Chest 2 View X-Ray CPT Code: 25754 FULL RESULT: EXAM: CHEST RADIOGRAPHY EXAM DATE: 01/10/2018 04:41 PM. CLINICAL HISTORY: Shortness of air COMPARISON: 08/21/2016. TECHNIQUE: 2 views. FINDINGS: Lungs/Pleura: There is mild flattening or blunting in the lateral left costophrenic angle. There is no consolidative process or edema. Negative for pleural effusion and pneumothorax. Mediastinum: Heart size is normal. Other: None. IMPRESSION: 1. Question trace left pleural effusion versus pleural thickening. Otherwise negative. RADIA
--- NOTE | 2018-01-10 18:05 | ED Physician Documentation ---
PD HPI DYSPNEA - Stated complaint Stated Complaint: SOA - Chief complaint Chief Complaint: Cardiac - History obtained from History obtained from: Patient - History of Present Illness Timing - onset: How many days ago (3-4) Timing - onset during: Light activity Timing - duration: Days Timing - details: Gradual onset, Still present, Waxing and waning Improved by: Rest Worsened by: Exertion. No: Laying flat, Coughing Associated symptoms: Chest pain / discomfort (some tightness), Bilateral edema ( chronic but is increased over baseline this week.). No: Fever, Cough, Wheezing , Palpitations, Diaphoresis Recently seen: Surgery (had sinus surgery Sunday (3 days ago) and is feeling MILES since then. Some increased leg edema over baseline. No cough nor fever. Talked with her ENT and referred to ER for evaluation.) Review of Systems Constitutional: denies: Fever, Chills, Myalgias Nose: reports: Sinus pressure / pain (from the surgery, some pressure right sinus). denies: Rhinorrhea / runny nose, Congestion Throat: denies: Sore throat Cardiac: reports: Chest pain / pressure, Pedal edema. denies: Palpitations, Calf pain Respiratory: reports: Dyspnea. denies: Cough, Hemoptysis, Wheezing GI: denies: Abdominal Pain, Nausea, Vomiting, Diarrhea Skin: denies: Rash, Lesions Neurologic: reports: Generalized weakness. 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 - Present Medications Home Medications: Ambulatory Orders Medication Instructions Recorded Confirmed Acyclovir 1 tab PO .FREQ 09/09/16 09/09/16 Ezetimibe [Zetia] 2 tab PO DAILY 09/09/16 09/09/16 Furosemide [Lasix] 1 tab PO .FREQ 09/09/16 09/09/16 [place]-3 Acid Ethyl Esters [Lovaza] 1 tab PO DAILY 09/09/16 09/09/16 Albuterol Sulf [Ventolin Hfa 2 - 3 puffs INH Q4HR PRN #1 inhaler 01/10/18 Inhaler] Amox/Clav 875/125 [Augmentin 1 01/10/18 875/125] Aspirin [Adult Aspirin] 2 01/10/18 Dexamethasone [Decadron] 4 mg PO DAILY #5 tablet 01/10/18 Potassium Chloride [Micro-K] 20 01/10/18 - Allergies Allergies/Adverse Reactions: Allergies Allergy/AdvReac Type Severity Reaction Status Date / Time gabapentin [From Neurontin] Allergy Unknown Verified 01/03/17 16:47 - Social History Does the pt smoke?: No Smoking Status: Never smoker Does the pt drink ETOH?: Yes Does the pt have substance abuse?: No - Immunizations Immunizations are current?: Yes PD ED PE NORMAL - Vitals Vital signs reviewed: Yes - General General: Alert and oriented X 3, No acute distress, Well developed/nourished - HEENT HEENT: Ears normal, Pharynx benign, Other (some dried blood right nare. ) - Neck Neck: Supple, no meningeal sign, No adenopathy, No JVD - Cardiac Cardiac: RRR, No murmur - Respiratory Respiratory: Clear bilaterally (with some prolonged expiratory phase, but no wheeze per se. ) - Abdomen Abdomen: Soft, Non tender - Back Back: No CVA TTP - Derm Derm: Normal color, Warm and dry - Extremities Extremities: Normal ROM s pain, No calf tenderness / cord, Other (1+ edema in both legs with chronic stasis skin changes noted. ) - Neuro Neuro: Alert and oriented X 3, No motor deficit, Normal speech Results - Vitals Vitals: Vital Signs - 24 hr 01/10/18 01/10/18 01/10/18 15:41 17:28 19:01 Temperature 36.1 C L 36.6 C Heart Rate 67 60 55 L Respiratory 20 18 15 Rate Blood Pressure 137/56 H 119/75 O2 Saturation 98 96 01/10/18 20:21 Temperature 36.3 C L Heart Rate 73 Respiratory 17 Rate Blood Pressure 136/70 H O2 Saturation 97 Oxygen O2 Source Room air - EKG (time done) 16:00 Rate: Rate (enter#) (67) Rhythm: NSR [place]: Normal Intervals: Normal ME QRS: Normal Ischemia: Normal ST segments. No: ST elevation c/w ischemia, ST depression - Labs Labs: Laboratory Tests 01/10/18 01/10/18 01/10/18 16:08 16:08 16:08 WBC 6.7 RBC 4.12 L Hgb 12.5 Hct 36.4 L MCV 88.4 MCH 30.3 MCHC 34.3 RDW 14.2 Plt Count 210 MPV 8.7 Neut # (Auto) 4.1 Lymph # (Auto) 1.8 [place] # (Auto) 0.4 Eos # (Auto) 0.2 Baso # (Auto) 0.1 Absolute Nucleated RBC 0.00 Nucleated RBC % 0.0 D-Dimer Sodium 137 Potassium 3.8 Chloride 103 Carbon Dioxide 25 Anion Gap 9.0 BUN 17 Creatinine 0.6 Estimated GFR (MDRD) 97 Glucose 114 H Calcium 9.3 Total Bilirubin 0.7 AST 28 ALT 24 Alkaline Phosphatase 52 Troponin I < 0.04 B-Natriuretic Peptide Total Protein 7.7 Albumin 4.2 Globulin 3.5 Albumin/Globulin Ratio 1.2 Lipase 31 01/10/18 01/10/18 16:08 19:13 WBC RBC Hgb Hct MCV MCH MCHC RDW Plt Count MPV Neut # (Auto) Lymph # (Auto) [place] # (Auto) Eos # (Auto) Baso # (Auto) Absolute Nucleated RBC Nucleated RBC % D-Dimer 213.0 Sodium Potassium Chloride Carbon Dioxide Anion Gap BUN Creatinine Estimated GFR (MDRD) Glucose Calcium Total Bilirubin AST ALT Alkaline Phosphatase Troponin I B-Natriuretic Peptide 130 H Total Protein Albumin Globulin Albumin/Globulin Ratio Lipase - Rads (name of study) chest xray Radiology: Prelim report reviewed, EMP read contemporaneously (no infiltrates nor acute process) PD MEDICAL DECISION MAKING - ED course Complexity details: reviewed results, re-evaluated patient (feeling improved with neb treatment. Labs, CXR and ECG are normal. Presume some bronchial/airway irritation subsequent to airway support during the surgery. ), considered differential (consider reactive airway, aspiration, CHF, [place], pneumonia, and PE. ), d/w patient - Sepsis Event Vital Signs: Vital Signs - 24 hr 01/10/18 01/10/18 01/10/18 15:41 17:28 19:01 Temperature 36.1 C L 36.6 C Heart Rate 67 60 55 L Respiratory 20 18 15 Rate Blood Pressure 137/56 H 119/75 O2 Saturation 98 96 01/10/18 20:21 Temperature 36.3 C L Heart Rate 73 Respiratory 17 Rate Blood Pressure 136/70 H O2 Saturation 97 Oxygen O2 Source Room air Departure - Departure Disposition: 01 Home, Self Care Clinical Impression: Dyspnea Qualifiers: Dyspnea type: dyspnea on exertion Qualified Code(s): R06.09 - Other forms of dyspnea Condition: Stable Record reviewed to determine appropriate education?: Yes Instructions: ED Dyspnea Shortness of Breath Follow-Up: Carolyn Longoria PA-C [Primary Care Provider] - BENJAMIN GUERRA MD [Physician No Access] - Prescriptions: Albuterol Sulf [Ventolin Hfa Inhaler] 2 - 3 puffs INH Q4HR PRN #1 inhaler PRN Reason: Shortness Of Air/Wheezing Dexamethasone [Decadron] 4 mg PO DAILY #5 tablet Comments: Use albuterol inhaler 2-3 puffs 4 times a day for the next 7-10 days. Decadron steroid anti-inflammatory to reduce bronchial irritation. There is no signs of heart attack, heart failure, pneumonia, blood clots. You can double your Lasix from 20-40 mg for the next 4-5 days to help with the leg edema. Recheck if not improved over the next couple of days. Discharge Date/Time: 01/10/18 20:35
[2018-01-10] MEDS ORDERED: FUROSEMIDE 40 MG/4 ML VIAL IVP STA (18:25)
[2018-01-10] MEDS ORDERED: ALBUTEROL NEB 2.5 MG/3 ML INH STA (18:25)
[2018-01-10] MEDS ORDERED: DEXAMETHASONE 10 MG/ML VIAL PO STA (20:22)
[2018-01-10 20:24] VITALS: BP 136/70
== END 2018-01-10 20:35 | disposition home or self-care (01) ==
LOC: ED 15:37
DX: R06.09 Other forms of dyspnea (principal); I10 Essential (primary) hypertension
CPT/HCPCS: 36415; 71046; 80053; 83690; 83880; 84484; 85025; 85379; 93005; 94640; 96374; 99283

== ENCOUNTER 2018-01-15 08:35 | Outpatient (CLI) | payer MEDICARE, OTHER ==
[2018-01-15 18:10] LABS: BASOPHILS % (AUTO) 0.4 %; EOSINOPHILS # (AUTO) 0.1 10^3/uL (0.0-0.7); EOSINOPHILS % (AUTO) 1.4 %; HGB - HEMOGLOBIN 11.9 g/dL (12.0-16.0); LYMPHOCYTES # (AUTO) 2.4 10^3/uL (1.5-3.5); LYMPHOCYTES % (AUTO) 31.2 %; MEAN CORPUSCULAR HEMOGLOBIN 30.2 pg (27.0-31.0); MEAN CORPUSCULAR HGB CONC 33.6 g/dL (32.0-36.0); MEAN CORPUSCULAR VOLUME 90.1 fL (81.0-99.0); MONOCYTES # (AUTO) 0.5 10^3/uL (0.0-1.0); MONOCYTES % (AUTO) 6.9 %; NEUTROPHILS # (AUTO) 4.6 10^3/uL (1.5-6.6); NEUTROPHILS % (AUTO) 60.1 %; PLT - PLATELET COUNT 214 10^3/uL (130-450); RED BLOOD COUNT 3.93 10^6/uL (4.20-5.40); RED CELL DISTRIBUTION WIDTH 14.5 % (12.0-15.0); WHITE BLOOD COUNT 7.7 x10^3/uL (4.8-10.8)
[2018-01-15 18:23] LABS: THYROID STIMULATING HORMONE 0.75 uIU/mL (0.34-5.60)
[2018-01-15 18:33] LABS: FERRITIN 34.8 ng/mL (11.0-306.8)
[2018-01-15 18:34] LABS: % IRON SATURATION 22 % (20-50); ALBUMIN/GLOBULIN RATIO 1.5 (1.0-2.2); ALKALINE PHOSPHATASE 42 IU/L (42-121); ALT ALANINE AMINOTRANSFERASE 17 IU/L (10-60); AST ASPARTATE AMINOTRANSFERASE 15 IU/L (10-42); BILIRUBIN,TOTAL 0.5 mg/dL (0.2-1.0); BUN - BLOOD UREA NITROGEN 19 mg/dL (6-20); CALCIUM 8.9 mg/dL (8.5-10.3); CARBON DIOXIDE - CO2 28 mmol/L (21-32); CHLORIDE 103 mmol/L (101-111); CHOL/HDL RATIO 3.2 (<4.4); CHOLESTEROL 199 mg/dL; CREATININE 0.6 mg/dL (0.4-1.0); GFR - MDRD 97 (>89); GLUCOSE 89 mg/dL (70-100); HDL CHOLESTEROL 62 mg/dL; IRON 84 ug/dL (28-170); LDL CHOLESTEROL,CALCULATED 117 mg/dL; LDL/HDL RATIO 1.9 (<4.4); MAGNESIUM 2.2 mg/dL (1.7-2.8); SODIUM 138 mmol/L (135-145); TOTAL IRON BINDING CAPACITY 391 ug/dL (250-450); TOTAL PROTEIN 6.7 g/dL (6.7-8.2); TRANSFERRIN 279 mg/dL (192-382); VLDL CHOLESTEROL 20 mg/dL
[2018-01-15 18:45] LABS: HB2 TOTAL 11.8 g/dL; HEMOGLOBIN A1C 0.44 g/dL; HEMOGLOBIN A1C % 5.6 % (4.6-6.2)
== END 2018-01-15 08:36 | disposition home or self-care (01) ==
LOC: LAB.F 08:35
PROVIDERS: ATTEND Surgery
DX: E66.9 Obesity, unspecified (principal); M85.80 Other specified disorders of bone density and structure, unspecified site; I48.0 Paroxysmal atrial fibrillation; R73.01 Impaired fasting glucose; E78.00 Pure hypercholesterolemia, unspecified; I10 Essential (primary) hypertension
CPT/HCPCS: 36415; 80053; 80061; 82306; 82607; 82728; 82747; 83036; 83540; 83721; 83735; 84425; 84443; 84466; 85025

== ENCOUNTER 2018-04-11 11:16 | Outpatient (CLI) | payer MEDICARE, OTHER | END 2018-04-11 11:17 | disposition home or self-care (01) | LOC: SC 11:16 | PROVIDERS: ATTEND Nurse Practitioner Family | DX: G47.33 Obstructive sleep apnea (adult) (pediatric) (principal) | CPT/HCPCS: 99214; G0463; 99212 ==

== ENCOUNTER 2018-05-08 11:04 | Outpatient (CLI) | payer MEDICARE, OTHER ==
--- NOTE | 2018-05-08 16:18 | Mammography Report ---
Reason: 6 MONTH F/U - CALC, Procedure Date: 05/08/2018 Accession Number: [id number] / [id number] Procedure: CHANELL - Diagnostic Dig RT CPT Code: FULL RESULT: EXAM: Diagnostic Dig RT DATE: 05/08/2018 11:41 AM CLINICAL HISTORY: Diagnostic mammogram. Follow-up previously identified calcifications. History of nulliparity. TECHNIQUE: Right CC and MLO images were obtained in 2-D and 3-D technique. Right spot magnified CC and right spot magnified ML views were also obtained. COMPARISON: 10/01/2017, 09/20/2017, 09/29/2016. FINDINGS: The right breast demonstrates scattered fibroglandular densities. Previously noted punctate calcifications are stable without interval development of pleomorphism. No masses identified. There is no suspicious interval architectural distortion, change in calcifications or mass. IMPRESSION: Probable benign findings RECOMMENDATION: Recommend diagnostic bilateral mammogram in 6 months. BIRADS CATEGORY 3 STANDARD QUALIFYING STATEMENTS: 1. This examination was not reviewed with the aid of Computer-Aided Detection (CAD). 2. A negative or benign imaging report should not delay biopsy if clinically suspicious findings are present. Consider surgical consultation if warrented. More than 5% of cancers are not identified by imaging. 3. Dense breasts may obscure an underlying neoplasm. 4. This examination was reviewed with the aid of 3D imaging (tomography).
== END 2018-05-08 11:05 | disposition home or self-care (01) ==
LOC: DI 11:04
PROVIDERS: ATTEND Physician Assistant Medical
DX: R92.8 Other abnormal and inconclusive findings on diagnostic imaging of breast (principal)

== ENCOUNTER 2018-11-12 08:50 | Outpatient (CLI) | payer MEDICARE, OTHER ==
[2018-11-12 09:52] LABS: VBG PH 7.386 (7.31-7.41)
[2018-11-12 09:55] LABS: BASOPHILS % (AUTO) 0.7 %; EOSINOPHILS # (AUTO) 0.1 10^3/uL (0.0-0.7); HGB - HEMOGLOBIN 12.1 g/dL (12.0-16.0); LYMPHOCYTES # (AUTO) 1.3 10^3/uL (1.5-3.5); LYMPHOCYTES % (AUTO) 30.8 %; MEAN CORPUSCULAR HEMOGLOBIN 30.5 pg (27.0-31.0); MEAN CORPUSCULAR HGB CONC 32.9 g/dL (32.0-36.0); MEAN CORPUSCULAR VOLUME 92.7 fL (81.0-99.0); MEAN PLATELET VOLUME 10.8 fL (7.9-10.8); MONOCYTES # (AUTO) 0.3 10^3/uL (0.0-1.0); MONOCYTES % (AUTO) 7.9 %; NEUTROPHILS # (AUTO) 2.5 10^3/uL (1.5-6.6); NEUTROPHILS % (AUTO) 57.4 %; PLT - PLATELET COUNT 167 10^3/uL (130-450); RED BLOOD COUNT 3.97 10^6/uL (4.20-5.40); RED CELL DISTRIBUTION WIDTH 14.7 % (12.0-15.0); WHITE BLOOD COUNT 4.3 x10^3/uL (4.8-10.8)
[2018-11-12 10:17] LABS: % IRON SATURATION 17 % (20-50); ALBUMIN 3.9 g/dL (3.2-5.5); ALBUMIN/GLOBULIN RATIO 1.2 (1.0-2.2); ALKALINE PHOSPHATASE 56 IU/L (42-121); ALT ALANINE AMINOTRANSFERASE 21 IU/L (10-60); AST ASPARTATE AMINOTRANSFERASE 22 IU/L (10-42); BILIRUBIN,TOTAL 0.6 mg/dL (0.2-1.0); BUN - BLOOD UREA NITROGEN 15 mg/dL (6-20); CARBON DIOXIDE - CO2 25 mmol/L (21-32); CHLORIDE 104 mmol/L (101-111); CHOL/HDL RATIO 3.6 (<4.4); CHOLESTEROL 206 mg/dL; CREATININE 0.5 mg/dL (0.4-1.0); GFR - MDRD 120 (>89); GLUCOSE 85 mg/dL (70-100); HDL CHOLESTEROL 57 mg/dL; IRON 60 ug/dL (28-170); LDL CHOLESTEROL,CALCULATED 137 mg/dL; LDL/HDL RATIO 2.4 (<4.4); MAGNESIUM 2.2 mg/dL (1.7-2.8); SODIUM 141 mmol/L (135-145); TOTAL IRON BINDING CAPACITY 358 ug/dL (250-450); TOTAL PROTEIN 7.1 g/dL (6.7-8.2); TRANSFERRIN 256 mg/dL (192-382); VLDL CHOLESTEROL 12 mg/dL
[2018-11-12 10:27] LABS: THYROID STIMULATING HORMONE 2.34 uIU/mL (0.34-5.60)
[2018-11-12 10:33] LABS: FERRITIN 63.7 ng/mL (11.0-306.8)
[2018-11-12 11:23] LABS: HB2 TOTAL 13.2 g/dL; HEMOGLOBIN A1C 0.57 g/dL; HEMOGLOBIN A1C % 6.1 % (4.6-6.2)
== END 2018-11-12 08:51 | disposition home or self-care (01) ==
LOC: LAB 08:50
PROVIDERS: ATTEND Nurse Practitioner
DX: E78.5 Hyperlipidemia, unspecified (principal); K91.2 Postsurgical malabsorption, not elsewhere classified; R53.83 Other fatigue; R73.01 Impaired fasting glucose; E55.9 Vitamin D deficiency, unspecified
CPT/HCPCS: 36415; 80053; 80061; 82306; 82330; 82607; 82728; 82747; 83036; 83540; 83721; 83735; 84425; 84443; 84466; 85025

== ENCOUNTER 2018-12-23 11:53 | Outpatient (CLI) | payer MEDICARE, OTHER ==
--- NOTE | 2018-12-23 13:41 | Mammography Report ---
Reason: 6 MO F/U - CALCS Procedure Date: 12/23/2018 Accession Number: [id number] / [id number] Procedure: CHANELL - Diagnostic Dig Bilat CPT Code: FULL RESULT: EXAM: Diagnostic Dig Bilat DATE: 12/23/2018 1:20 PM CLINICAL HISTORY: Diagnostic examination. History of nulliparity. 6 month follow-up of right breast calcifications. TECHNIQUE: (B) - Bilateral CC and MLO views were obtained. Right spot magnified CC and spot magnified ML as well as right ML views are obtained. COMPARISON: 05/08/2018 through 09/09/2014. PARENCHYMAL PATTERN: (A) - The breast(s) demonstrate(s) scattered fibroglandular densities. FINDINGS: No suspicious interval change is seen in the grouping of calcifications in the right upper outer breast, probably benign. There are no suspicious masses, calcifications, or areas of distortion. IMPRESSION: Probably Benign. BI-RADS category 3. RECOMMENDATION: (12MOS) - Recommend 12 month follow-up exam. BI-RADS CATEGORY: (3) - Probably Benign. STANDARD QUALIFYING STATEMENTS: 1. This examination was not reviewed with the aid of Computer-Aided Detection (CAD). 2. A negative or benign imaging report should not preclude biopsy if clinically suspicious findings are present. 3. Dense breasts may obscure an underlying neoplasm. 4. This examination was reviewed with the aid of 3D breast imaging (tomosynthesis).
== END 2018-12-23 11:54 | disposition home or self-care (01) ==
LOC: DI 11:53
PROVIDERS: ATTEND Nurse Practitioner
DX: R92.1 Mammographic calcification found on diagnostic imaging of breast (principal)
CPT/HCPCS: 77066

== ENCOUNTER 2019-02-26 10:59 | Outpatient (CLI) | payer MEDICARE, OTHER ==
[2019-02-26 11:49] VITALS: BP 110/60
--- NOTE | 2019-02-26 11:49 | SLEEP CARE CONSULTATION ---
Information from patient questionnaire entered by Joseline Chao. I have reviewed and concur with the information entered by Joseline Chao. This document represents the service I personally performed and the decisions made by me, Laurie Fischer RN, MSN, [employer]. History of Present Illness Previous diagnosis: Severe, Obstructive Sleep Apnea-Hypopnea Syndrome AHI: 39 Reason for CPAP/BiPAP follow up: annual Equipment type: CPAP Equipment obtained from: [employer] Mask style: Nasal (N20) Mask brand: Resmed Backup mask available: No Last cushion change: 6 months HPI additional information: She did not transfer as planned last year and no new supplies the past year. CPAP Compliance Data - Data Reviewed with Patient Average duration of nightly device use: 6.6 Compliance rate %: 85 (180 days) Current pressure setting (cmH2O): 8 Humidity settin Heated hose settin Average residual AHI: 0.7 Average large leak: 14 mins 18 sec Subjective Missed days of use due to: reports: travel (with portable CPAP) Patient concerns: reports: air blowing in eyes (occasionally due to old mask), nasal congestion (intermittent with seasonal allergies- rarely affects use of CPAP. ). denies: aerophagia, mask discomfort, mask leak noise, condensation in mask/hose, dry mouth, nose, throat, epistaxis Observed to snore while using device: No Current pressure setting perceived as: comfortable On therapy, patient: reports: sleeping better (most of time), awakening more refreshed, being more awake and alert during the day, more rested overall (intermittent fatigue). denies: drowsiness while driving Initial [place] Sleepiness Scale score: 3 Current [place] Sleepiness Scale score: 0 Allergies and Home Medications Known drug allergies: Yes (gabapentin) Home medication list reviewed: Yes Allergy and home medication list: mulitple supplements Acyclovir 800mg tab one daily Lumigan-Timolol ophthalmic solution One drop twice daily zolpidem 5mg prn Aspirin 81mg tab one daily Review of Systems Review of systems same as previous: No (bariatric surgery 2018, turbinate reduction twice 2018) Physical Exam Blood Pressure: 110/60 Cuff size: long Heart Rate: 76 O2 Saturation: 91 Height: 5 ft 5.5 in Weight: 204 lb 9.6 oz Body Mass Index: 33.5 BMI Classification: Obesity Class 1 Impression and Plan 1. Obstructive Sleep Apnea-Hypopnea Syndrome, severe, with good treatment compliance and good apnea control. On CPAP therapy, the patient has better sleep quality and is more rested overall with intermittent residual fatigue. It is unclear the cause, if continued a sleep diary will be completed. She travels frequently and it could be due to change in time zones but patient does not think so. I also advised her to discuss with her PCP. She is here for her annual follow up and to update her CPAP and transfer to another DME due to difficulty getting supplies. A new DWO prescription will be made. Since she has also lost significant weight from bariatric surgery I will change her CPAP pressure to autoCPAP 6-8cmH20 to accomodate for future weight loss goals. Symptoms to report for further pressure adjustment discussed. I will make a DWO prescription and have staff inform of DME options. Patient's apnea severity and rationale for treatment to reduce apnea, improve sleep quality and reduce cardiovascular and cerebrovascular events was reviewed. I also reviewed the benefit of consistent device use of CPAP for hypertension. * Update CPAP * Transfer to new DME * Change CPAP pressure to 6-8 cmH2O * Notify me if snoring with mask or feeling that the pressure is too much or too little * Continue to lose weight * Follow up with PCP for further evaluation of fatigue. * Consider sleep diary if continued intermittent fatigue. * Return for follow up one month after new device, or sooner if concerns arise I spent 100% of this 30 minute visit face to face with the patient with greater than 50% of this was spent time counseling the patient and coordination of care.
== END 2019-02-26 11:00 | disposition home or self-care (01) ==
LOC: SC 10:59
PROVIDERS: ATTEND Nurse Practitioner Family
DX: G47.33 Obstructive sleep apnea (adult) (pediatric) (principal); E66.9 Obesity, unspecified; Z68.33 Body mass index [BMI] 33.0-33.9, adult
CPT/HCPCS: 99214; G0463; 99212

== ENCOUNTER 2019-10-21 16:54 | Outpatient (CLI) | payer MEDICARE, OTHER ==
[2019-10-21] MEDS ORDERED: GADOBUTROL 10 MMOL/10 ML VIAL ONE (17:25)
[2019-10-21] MEDS ORDERED: GADOBUTROL 10 MMOL/10 ML VIAL IVP ONE (18:08)
--- NOTE | 2019-10-22 10:14 | MRI Report ---
Reason: ACOUSTIC NEUROMA Procedure Date: 10/21/2019 Accession Number: [id number] / [id number] Procedure: MRI - Brain W/WO CPT Code: Final Report FULL RESULT: PROCEDURE: Brain W/WO INDICATIONS: ACOUSTIC NEUROMA CONTRAST: IV CONTRAST: Gadavist ml: 9 TECHNIQUE: Noncontrast sagittal T1 spin echo, axial FLAIR, axial gradient echo, axial diffusion and ADC through the brain. Axial thin-slice 3D CISS, coronal balanced GE, axial T1 spin echo with fat saturation through the internal auditory canals. After the administration of contrast, thin slice axial and coronal T1 spin echo with fat saturation through the internal auditory canals, and axial T1 spin echo with fat saturation through the brain. COMPARISON: MRI brain 03/21/[address] head 02/09/2017. FINDINGS: Image quality: Excellent. Cerebellopontine angles: No cerebellopontine angle masses. Inner ear structures appear normally formed. Enhancing left internal auditory canal mass is stable in size and contour compared to 03/21/2017 measuring 4 x 7 x 4 mm in the current study (4 x 7 x 4.5 mm previously). CSF spaces: Ventricles are normal in size and shape. No extra-axial fluid collections. Basal cisterns are patent. Brain: No intracranial bleeds or mass effects. Rayo-white matter interface is intact. There is mild, diffuse cerebral volume loss. There are mild periventricular and subcortical white matter chronic microvascular ischemic changes. No abnormal enhancement in the brain parenchyma. Diffusion weighted images demonstrate no acute ischemic insults. No areas of encephalomalacia. No abnormal GRE artifact identified in the brain parenchyma. Brainstem appears normal. Normal intravascular flow voids are present. Dural sinuses demonstrate normal postcontrast enhancement. Skull and face: Calvarial marrow signal is normal. Orbits appear normal. Sinuses: Sinuses and mastoids are clear. IMPRESSION: 1. 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 2. No acute intracranial disease process. 3. Mild, diffuse cerebral volume loss. 4. Mild periventricular and subcortical white matter chronic microvascular ischemic change. Reviewed by: Gisela Feng MD, PhD on 10/22/2019 10:13 AM PDT Approved by: Gisela Feng MD, PhD on 10/22/2019 10:13 AM PDT Station ID: [id number]
== END 2019-10-21 16:55 | disposition home or self-care (01) ==
LOC: DI 16:54
PROVIDERS: ATTEND Radiology Radiation Oncology
DX: D33.3 Benign neoplasm of cranial nerves (principal); I67.82 Cerebral ischemia
CPT/HCPCS: 70553; A9585

== ENCOUNTER 2020-01-02 15:12 | Outpatient (CLI) | payer MEDICARE, OTHER ==
--- NOTE | 2020-01-02 15:44 | SLEEP CARE CONSULTATION ---
Information from patient questionnaire entered by Giovanna Rascon. I have reviewed and concur with the information entered by Giovanna Rascon. This document represents the service I personally performed and the decisions made by me, Cinda Hastings ARNP. History of Present Illness Service Date and Time: 01/02/2020 1512 Previous diagnosis: Severe, Obstructive Sleep Apnea-Hypopnea Syndrome AHI: 39 Reason for follow up: other (10-month followup, new machine Rx) Equipment type: CPAP Equipment obtained from: Other (getting supplies from [facility]) Mask style: Nasal Backup mask available: Yes (old mask) Prior sleep studies: Yes Year and Where: 2008 [facility]– [place][Note 2] in [place] Type of Sleep Study: Polysomnography HPI additional information: KAZ AMIN was diagnosed to have severe, AHI 39, obstructive sleep apnea- hypopnea syndrome and returned today for CPAP therapy eight month follow-up and need for new machine/supplies prescription. CPAP Compliance Data - Data Reviewed with Patient Average duration of nightly device use: 7 h 52 sec Compliance rate %: 82.8 Current pressure setting (cmH2O): 8 Humidity settin Heated hose settin Average residual AHI: 0.9 Average large leak: 3 min 4 sec Subjective Patient concerns: reports: air blowing in eyes (occasionally). denies: aerophagia, mask discomfort, mask leak noise, condensation in mask/hose, nasal congestion, dry mouth, nose, throat, epistaxis, other Observed to snore while using device: No Current pressure setting perceived as: comfortable On therapy, patient: reports: sleeping better, awakening more refreshed, being more awake and alert during the day, more rested overall. denies: drowsiness while driving Initial [place] Sleepiness Scale score: 3 (in 2012) Current [place] Sleepiness Scale score: 2 Allergies and Home Medications Drug allergies reviewed: Yes (gabapentin) Home medication list reviewed: Yes (added celebrex 200 mg for last couple months) Review of Systems Review of systems same as previous: Yes (back brace and back pain) Physical Exam Heart Rate: 63 O2 Saturation: 90 Height: 5 ft 5.5 in Weight: 192 lb 12.8 oz Body Mass Index: 31.6 BMI Classification: Obese Impression and Plan 1. Obstructive Sleep Apnea-Hypopnea Syndrome, severe, with good treatment compliance and good apnea control. On CPAP therapy, there is improved sleep quality and feels more rested overall. Patient's apnea severity and rationale for treatment to reduce apnea, improve sleep quality and reduce cardiovascular and cerebrovascular events was reviewed. Continue auto CPAP pressure at 8 cm H2O. Notify me if snoring with the mask or feeling that the pressure is too much or too little. Attempt to lose weight. Update CPAP machine and supplies Transfer DME Return for follow-up in one year, or sooner if concerns arise. Visit Type: In Office Time Spent with Patient (minutes): 25 Provider Statement: I spent 100% of the Face to Face Visit with the patient with greater than 50% spent counseling the patient and coordination of care.
== END 2020-01-02 15:13 | disposition home or self-care (01) ==
LOC: SC 15:12
PROVIDERS: ATTEND Nurse Practitioner Family
DX: G47.33 Obstructive sleep apnea (adult) (pediatric) (principal); E66.9 Obesity, unspecified; Z68.31 Body mass index [BMI] 31.0-31.9, adult
CPT/HCPCS: 99213; G0463; 99212

== ENCOUNTER 2020-05-03 09:00 | Outpatient (CLI) | payer MEDICARE, OTHER ==
--- NOTE | 2020-05-03 14:45 | Mammography Report ---
BILATERAL DIGITAL DIAGNOSTIC MAMMOGRAM 3D/2D: 05/03/2020 CLINICAL: Patient returns for 12 month follow up for magnification views of microcalcifications in th e right breast. Annual left breast screening. Comparison is made to exams dated: 12/23/2018 mammogram, 05/08/2018 mammogram, 10/01/2017 mammogram, a nd 09/20/2017 mammogram - [facility]. The tissue of both breasts is predominantly f atty. There are stable benign diffuse punctate calcifications in the right breast at 11 o'clock anterior de pth. No other significant masses, calcifications, or other findings are seen in either breast. IMPRESSION: BENIGN There is no mammographic evidence of malignancy. Return to annual mammogram screening schedule is rec ommended. This exam was interpreted at Station ID: [id number]. NOTE: For mammograms, a report in lay terms will be sent to the patient. Approximately 15% of breast malignancies will not be visualized mammographically. In the management of a palpable breast mass, a negative mammogram must not discourage biopsy of a clinically suspicious lesion. Electronically Signed By: Tong Wilburn acr/:05/03/2020 10:10:27 ACR BI-RADS Category 2: Benign Finding(s) 3342F PARENCHYMAL PATTERN: (F) - The breast(s) demonstrate(s) diffuse fatty replacement. BI-RADS CATEGORY: (2) - 2 RECOMMENDATION: (ANNUAL) - Recommend routine annual screening mammography. [id number] return to screening LATERALITY: (B)
== END 2020-05-03 09:01 | disposition home or self-care (01) ==
LOC: DI 09:00
PROVIDERS: ATTEND Nurse Practitioner
DX: R92.8 Other abnormal and inconclusive findings on diagnostic imaging of breast (principal)

== ENCOUNTER 2021-01-13 10:51 | Outpatient (CLI) | payer MEDICARE, OTHER ==
--- NOTE | 2021-01-13 11:40 | XRAY Report ---
PROCEDURE: Knee 3 View RT INDICATIONS: PAIN IN RIGHT KNEE TECHNIQUE: 3 views of the right knee(s) were acquired. COMPARISON: Knee x-ray 09/09/2016 FINDINGS: Bones: No fractures or dislocations. No suspicious bony lesions. Knee arthroplasty is present. Jose dware is intact without evidence of periprosthetic loosening or fracture. Soft tissues: No joint effusion. No suspicious soft tissue calcifications. IMPRESSION: Knee arthroplasty as above. Reviewed by: Roxann Weathers MD on 01/13/2021 11:39 AM PDT Approved by: Roxann Weathers MD on 01/13/2021 11:39 AM PDT Station ID: [id number]
== END 2021-01-13 10:52 | disposition home or self-care (01) ==
LOC: DI 10:51
PROVIDERS: ATTEND Nurse Practitioner Family
DX: M25.561 Pain in right knee (principal); Z96.651 Presence of right artificial knee joint

== ENCOUNTER 2022-04-20 09:37 | Outpatient (CLI) | payer MEDICARE, OTHER ==
[2022-04-20 10:42] VITALS: BP 118/70
--- NOTE | 2022-04-20 10:42 | SLEEP CARE CONSULTATION ---
Information from patient questionnaire entered by Dima Finn. I have reviewed and concur with the information entered by Dima Finn. This document represents the service I personally performed and the decisions made by me, Cinda Hastings ARNP. History of Present Illness Service Date and Time: 04/20/2022 0937 Previous diagnosis: Severe, Obstructive Sleep Apnea-Hypopnea Syndrome AHI: 39 Reason for follow up: annual Equipment type: CPAP (Dreamstation) Equipment obtained from: Other (getting supplies from [facility]) Mask style: Nasal Mask brand: Resmed Backup mask available: Yes (old mask) Last cushion change: November 2021 Prior sleep studies: Yes Year and Where: 2008 [facility] in [place] HPI additional information: KAZ AMIN was diagnosed to have severe, AHI 39, obstructive sleep apnea-hypo pnea syndrome and returned today for CPAP therapy annual follow-up. Sleep Study - Results Prior sleep studies: Yes Year and Where: 2008 [facility] CPAP Compliance Data - Data Reviewed with Patient Average duration of nightly device use: 7 hours 34 minutes Compliance rate %: 83.3 ( days used) Current pressure setting (cmH2O): 8 Average residual AHI: 2.4 Central apnea: 0 Obstructive apnea: 0.4 Hypopnea: 2 Compliance data discussion: Pt reports traveling recently and used her portable machine during that time. The machine she brings in today will not have that data from traveling. 04/20/22 Sarah Finn MA Subjective Missed days of use due to: reports: travel (uses portable CPAP when traveling), other (allergies) Patient concerns: reports: nasal congestion (from allergies). denies: aerophagia, mask discomfort, air blowing in eyes, mask leak noise, condensation in mask/hose, dry mouth, nose, throat, epistaxis Observed to snore while using device: No Current pressure setting perceived as: comfortable On therapy, patient: reports: sleeping better, awakening more refreshed, being more awake and alert during the day, more rested overall. denies: drowsiness while driving Initial [place] Sleepiness Scale score: 3 (in 2011) Current [place] Sleepiness Scale score: 2 (04/20/22) Allergies and Home Medications Drug allergies reviewed: Yes (gabapentin) Home medication list reviewed: Yes (no changes) Review of Systems Review of systems same as previous: Yes (no changes) Immunologic: reports: allergies to food or environment (dust, dust mites, grass) Physical Exam Vital signs obtained and entered by: DIANA ORTIZ Blood Pressure: 118/70 (left arm ) Cuff size: regular Heart Rate: 78 O2 Saturation: 95 Height: 5 ft 5.5 in Weight: 208 lb Body Mass Index: 34.0 BMI Classification: Obese Impression and Plan 1. Obstructive Sleep Apnea-Hypopnea Syndrome, severe, with good treatment compliance and good apnea control. On CPAP therapy, the patient has better sleep quality and is more rested overall. Patient uses a portable CPAP when traveling and she travels a lot. She is happy with current CPAP therapy. She has significant improvement of her sleep apnea. We will update her prescription for supplies. Patient's apnea severity and rationale for treatment to reduce apnea, improve sleep quality and reduce cardiovascular and cerebrovascular events was reviewed. 2. Obesity, unspecified. Currently patients BMI is 34.0. Obesity increases the risk of apnea, CPAP pressure requirements and overall health risks especially cardiovascular and diabetes. Thus patient is advised to lose weight. * Continue CPAP pressure at 8 cmH2O * Update supplies * Notify me if snoring with mask or feeling that the pressure is too much or too little * Attempt to lose weight * Call this office if any problems using CPAP * Return for follow up in 1 year, or sooner if concerns arise Counseling Topics: Spare mask, Weight loss health impact Visit Type: In Office Time Spent with Patient (minutes): 23 Provider Statement: I spent 100% of the Face to Face Visit with the patient with greater than 50% spent counseling the patient and coordination of care.
== END 2022-04-20 09:38 | disposition home or self-care (01) ==
LOC: SC 09:37
PROVIDERS: ATTEND Nurse Practitioner Family
DX: G47.33 Obstructive sleep apnea (adult) (pediatric) (principal); E66.9 Obesity, unspecified; Z68.34 Body mass index [BMI] 34.0-34.9, adult
CPT/HCPCS: 99213; G0463; 99212

== ENCOUNTER 2022-05-10 14:32 | Outpatient (CLI) | payer MEDICARE, OTHER ==
--- NOTE | 2022-05-11 13:03 | Mammography Report ---
BILATERAL DIGITAL SCREENING MAMMOGRAM 3D/2D: 05/10/2022 CLINICAL: Routine screening. Comparison is made to exams dated: 05/03/2020 mammogram, 12/23/2018 mammogram, 05/08/2018 mammogram, 10/01/2017 mammogram, 09/20/2017 mammogram, and 09/29/2016 mammogram - [facility]. There are scattered areas of fibroglandular density in both breasts (category b / 25%-50% glandular t issue). No significant masses, calcifications, or other findings are seen in either breast. There has been no significant interval change. IMPRESSION: NEGATIVE There is no mammographic evidence of malignancy. A 1 year screening mammogram is recommended. Based on the Tyrer Cuzick model (a risk assessment model) the patients lifetime risk is 0.8% and her 10 year risk is 0.0%. According to the ACR, ACS, and NCCN guidelines, an annual breast MRI exam evelyn g with mammogram is recommended if the patients lifetime risk is 20% or greater. This exam was interpreted at Station ID: [id number]. NOTE: For mammograms, a report in lay terms will be sent to the patient. Approximately 15% of breast malignancies will not be visualized mammographically. In the management of a palpable breast mass, a negative mammogram must not discourage biopsy of a clinically suspicious lesion. Electronically Signed By: Steve Silva M.D. attopher/juan miguelrad:05/10/2022 16:43:47 ACR BI-RADS Category 1: Negative 3341F PARENCHYMAL PATTERN: (A) - The breast(s) demonstrate(s) scattered fibroglandular densities. BI-RADS CATEGORY: (1) - 1 RECOMMENDATION: (ANNUAL) - Recommend routine annual screening mammography. [id number] 1 year screening LATERALITY: (B)
== END 2022-05-10 14:33 | disposition home or self-care (01) ==
LOC: DI 14:32
PROVIDERS: ATTEND Registered Nurse
DX: Z12.31 Encounter for screening mammogram for malignant neoplasm of breast (principal)

== ENCOUNTER 2022-06-04 11:38 | Outpatient (CLI) | payer MEDICARE, OTHER | END 2022-06-04 11:39 | disposition critical access hospital (66) | LOC: EMS 11:38 | DX: R25.1 Tremor, unspecified (principal); R07.89 Other chest pain; K59.00 Constipation, unspecified | CPT/HCPCS: A0425; A0429 ==

== ENCOUNTER 2022-06-04 12:05 | Emergency (ER) | payer MEDICARE, OTHER ==
--- OUTSIDE RECORDS SUMMARY | 2022-06-04 12:09 | EXTERNAL MEDICAL SUMMARY RPT | Continuity of Care Document ---
:1940 Author Organization [facility] Address [address] [place] [address] Phone Allergies No information. Encounters No information. Functional Status No information. Immunizations No information. Medications No information. 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 Results/Labs test date author facility value unit interpret ation Result panel 1 (unknown) (no (unknown) (unknown) (no value) (units (unk nown) date) unknown) (unknown) (no (unknown) (unknown) 04/07/22 (units (unkno wn) date) unknown) (unknown) (no (unknown) (unknown) [address] [place] [address] (units (unknown) date) unknown) (unknown) (no (unknown) (unknown) [id number] (units (unkno wn) date) unknown) (unknown) (no (unknown) (unknown) ADC through the (units (unknown) date) brain. Axial unknown) thin-slice 3D CISS, coronal TruFISP, axial T1 (unknown) (no (unknown) (unknown) Accession Number: (units (unknown) date) [id number] unknown) (unknown) (no (unknown) (unknown) Age/Sex: 81 / F (units (unknown) date) Date of Service: unknown) (unknown) (no (unknown) (unknown) MIKE Grimes (units ( unknown) date) [id number] unknown) (unknown) (no (unknown) (unknown) Approved by: Petey (units (unknown) date) Keely Sethi M.D. on unknown) 04/07/2022 at 11:43 (unknown) (no (unknown) (unknown) Basal cisterns are (units (unknown) date) patent. unknown) (unknown) (no (unknown) (unknown) Brain: No (units (unkn own) date) intracranial bleeds unknown) or mass effects. Rayo-white matter interface is (unknown) (no (unknown) (unknown) COMPARISON: None. (units (unknown) date) unknown) (unknown) (no (unknown) (unknown) CSF spaces: (units (un known) date) Ventricles are unknown) normal in size and shape. No extra-axial fluid (unknown) (no (unknown) (unknown) Cerebellopontine (units (unknown) date) angles: Within the unknown) left internal auditory canal, there is an (unknown) (no (unknown) (unknown) : 1940 (units (unknown) date) Acct:[id number] unknown) (unknown) (no (unknown) (unknown) Dictated by: Petey (units (unknown) date) Keley Sethi M.D. on unknown) 04/07/2022 at 11:40 (unknown) (no (unknown) (unknown) FINDINGS: (units (unkn own) date) unknown) (unknown) (no (unknown) (unknown) High (units (unkno wn) date) unknown) (unknown) (no (unknown) (unknown) IMPRESSION: 7 x 3 (units (unknown) date) x 3 mm nodule seen unknown) within the left internal auditory canal. (unknown) (no (unknown) (unknown) INDICATIONS: (units (u nknown) date) Personal history of unknown) other benign neoplasm (unknown) (no (unknown) (unknown) Image quality: (units (unknown) date) Excellent. unknown) (unknown) (no (unknown) (unknown) [facility] (units (unknown) date) unknown) (unknown) (no (unknown) (unknown) Loc: MRI (units (unkno wn) date) unknown) (unknown) (no (unknown) (unknown) Magnetic Resonance (units (unknown) date) Report unknown) (unknown) (no (unknown) (unknown) No abnormal (units (un known) date) intracranial unknown) enhancement. Diffusion weighted images demonstrate no (unknown) (no (unknown) (unknown) No additional (units ( unknown) date) masses can be seen unknown) within the internal auditory canals or within (unknown) (no (unknown) (unknown) No additional (units ( unknown) date) masses or abnormal unknown) enhancement can be seen. (unknown) (no (unknown) (unknown) Noncontrast (units (un known) date) sagittal T1 spin unknown) echo, axial FLAIR, axial gradient echo, axial (unknown) (no (unknown) (unknown) Ordering Provider: (units (unknown) date) Pamela Day unknown) (unknown) (no (unknown) (unknown) PROCEDURE: MR (units ( unknown) date) BRAIN (IAC) WWO CON unknown) (unknown) (no (unknown) (unknown) Patient: (units (unkno wn) date) Kaz Amin MR#: unknown) M000 (unknown) (no (unknown) (unknown) Procedure: MR IAC (units (unknown) date) (brain) wwo con unknown) (unknown) (no (unknown) (unknown) Signed (units (unkno wn) date) unknown) (unknown) (no (unknown) (unknown) Sinuses: Sinuses (units (unknown) date) and mastoids are unknown) clear. (unknown) (no (unknown) (unknown) Skull and face: (units (unknown) date) Calvarial marrow unknown) signal is normal. Orbits appear normal. (unknown) (no (unknown) (unknown) TECHNIQUE: (units (unk nown) date) unknown) (unknown) (no (unknown) (unknown) acute (units (unkno wn) date) unknown) (unknown) (no (unknown) (unknown) administration of (units (unknown) date) unknown) (unknown) (no (unknown) (unknown) are (units (unkno wn) date) unknown) (unknown) (no (unknown) (unknown) cerebellopontine (units (unknown) date) angle cisterns. unknown) (unknown) (no (unknown) (unknown) collections. (units (u nknown) date) unknown) (unknown) (no (unknown) (unknown) contrast, thin (units (unknown) date) slice axial and unknown) coronal T1 spin echo with fat saturation through (unknown) (no (unknown) (unknown) diffusion and (units ( unknown) date) unknown) (unknown) (no (unknown) (unknown) enhancing (units (unkn own) date) unknown) (unknown) (no (unknown) (unknown) fat (units (unkno wn) date) unknown) (unknown) (no (unknown) (unknown) intact. (units (unkno wn) date) unknown) (unknown) (no (unknown) (unknown) internal auditory (units (unknown) date) canals, and axial unknown) and coronal and sagittal T1 spin echo with (unknown) (no (unknown) (unknown) ischemic insults. (units (unknown) date) Brainstem appears unknown) normal. Normal intravascular flow voids (unknown) (no (unknown) (unknown) nodule seen that (units (unknown) date) measures 7 x 3 x 3 unknown) mm. (unknown) (no (unknown) (unknown) present. (units (unkno wn) date) unknown) (unknown) (no (unknown) (unknown) saturation through (units (unknown) date) the brain. unknown) (unknown) (no (unknown) (unknown) spin echo (units (unkn own) date) unknown) (unknown) (no (unknown) (unknown) suspicion for (units ( unknown) date) vestibular unknown) schwannoma. (unknown) (no (unknown) (unknown) the (units (unkno wn) date) unknown) (unknown) (no (unknown) (unknown) with fat (units (unkno wn) date) saturation through unknown) the internal auditory canals. After the Social History No information. Vital Signs No information.
--- NOTE | 2022-06-04 12:39 | ED Physician Documentation ---
History of Present Illness - Stated complaint Stated Complaint: SHAKING/GENERAL WEAKNESS - Chief complaint Chief Complaint: Neuro - Additonal information Additional information: 81-year-old female presents emergency department for evaluation of 2 days generalized rigors shaking and teeth chattering. However she states that for a number of months she is felt wobbly and off balance and has had 2 falls. She reports she struck her head twice though she never sought medical treatment. States she has been told she should always use a walker but only uses it when outside of the house. Currently undergoing [facility] dementia study for which she is in a metformin versus placebo group. She is unsure which medication she is receiving. She denies any fevers. Reports over the last few weeks she has had increased urinary urgency and frequency though no dysuria. She presents nonfocal and on presentation has an NIHSS of 0 Fair historian. Seems reliable. Unclear if developing dementia Review of Systems Constitutional: reports: Myalgias, Fatigue. denies: Fever Eyes: reports: Reviewed and negative Throat: reports: Reviewed and negative Cardiac: reports: Reviewed and negative Respiratory: reports: Reviewed and negative GI: denies: Abdominal Pain, Nausea, Vomiting Skin: denies: Rash, Lesions Musculoskeletal: denies: Back pain, Extremity pain, Joint pain, Extremity swelling Neurologic: reports: Generalized weakness. 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 - Present Medications Home Medications: Ambulatory Orders Medication Instructions Recorded Confirmed Acyclovir 1 tab PO .FREQ 09/09/16 09/09/16 Ezetimibe [Zetia] 2 tab PO DAILY 09/09/16 09/09/16 Furosemide [Lasix] 1 tab PO .FREQ 09/09/16 09/09/16 [place]-3 Acid Ethyl Esters [Lovaza] 1 tab PO DAILY 09/09/16 09/09/16 Albuterol Sulf [Ventolin Hfa 2 - 3 puffs INH Q4HR PRN #1 inhaler 01/10/18 Inhaler] Amox/Clav 875/125 [Augmentin 1 01/10/18 875/125] Aspirin [Adult Aspirin] 2 01/10/18 Potassium Chloride [Micro-K] 20 01/10/18 dexAMETHasone [Decadron] 4 mg PO DAILY #5 tablet 01/10/18 Cefpodoxime Proxetil [Vantin] 100 mg PO Q12H #14 tablet 06/04/22 - Allergies Allergies/Adverse Reactions: Allergies Allergy/AdvReac Type Severity Reaction Status Date / Time gabapentin [From Neurontin] Allergy Unknown Verified 01/03/17 16:47 Opioids - Morphine Analogues AdvReac Nausea Verified 06/04/22 12:17 - Social History Does the pt smoke?: No Smoking Status: Never smoker Does the pt drink ETOH?: Yes Does the pt have substance abuse?: No - Immunizations Immunizations are current?: Yes PD ED PE NORMAL - General General: Alert and oriented X 3, No acute distress, Well developed/nourished - HEENT HEENT: Atraumatic, Moist mucous membranes - Neck Neck: Supple, no meningeal sign, No adenopathy - Cardiac Cardiac: RRR, No murmur - Respiratory Respiratory: No respiratory distress - Abdomen Abdomen: Normal bowel sounds, Soft - Back Back: No CVA TTP, No spinal TTP - Derm Derm: Normal color, Warm and dry, No rash - Extremities Extremities: No deformity, No tenderness to palpate, Normal ROM s pain - Neuro Neuro: Alert and oriented X 3, parent trainer 2-12 intact, No motor deficit, No sensory deficit, Normal speech Eye Opening: Spontaneous Motor: Obeys Commands Verbal: Oriented GCS Score: 15 Results - Vitals Vitals: Vital Signs - 24 hr 06/04/22 12:12 Temperature 36.3 C L Heart Rate 69 Respiratory 12 Rate Blood Pressure 137/71 H O2 Saturation 100 Oxygen O2 Source Room air - Labs Labs: Laboratory Tests 06/04/22 06/04/22 06/04/22 12:45 13:13 13:22 WBC 5.9 RBC 4.28 Hgb 12.8 Hct 39.2 MCV 91.6 MCH 29.9 MCHC 32.7 RDW 14.0 Plt Count 197 MPV 10.1 Neut # (Auto) 3.7 Lymph # (Auto) 1.6 Kimball # (Auto) 0.4 Eos # (Auto) 0.2 Baso # (Auto) 0.1 Absolute Nucleated RBC 0.00 Nucleated RBC % 0.0 Sodium Potassium Chloride Carbon Dioxide Anion Gap BUN Creatinine Estimated GFR (MDRD) Glucose Calcium Total Bilirubin AST ALT Alkaline Phosphatase Total Protein Albumin Globulin Albumin/Globulin Ratio Lipase Urine Color YELLOW Urine Clarity CLEAR Urine pH 6.0 Ur Specific [place] 1.020 Urine Protein NEGATIVE Urine Glucose (UA) NEGATIVE Urine Ketones NEGATIVE Urine Occult Blood NEGATIVE Urine Nitrite NEGATIVE Urine Bilirubin NEGATIVE Urine Urobilinogen 0.2 (NORMAL) Ur Leukocyte Esterase MODERATE H Urine RBC None Seen Urine WBC 6-10 H Ur Squamous Epith Cells FEW Squamous Urine Bacteria None Seen Ur Microscopic Review INDICATED Urine Culture Comments INDICATED Influenza A (Rapid) Negative Influenza B (Rapid) Negative 06/04/22 13:22 WBC RBC Hgb Hct MCV MCH MCHC RDW Plt Count MPV Neut # (Auto) Lymph # (Auto) [place] # (Auto) Eos # (Auto) Baso # (Auto) Absolute Nucleated RBC Nucleated RBC % Sodium 140 Potassium 3.5 Chloride 101 Carbon Dioxide 28 Anion Gap 11.0 BUN 30 H Creatinine 0.7 Estimated GFR (MDRD) 80 L Glucose 98 Calcium 9.1 Total Bilirubin 0.9 AST 23 ALT 21 Alkaline Phosphatase 40 L Total Protein 7.8 Albumin 4.3 Globulin 3.5 Albumin/Globulin Ratio 1.2 Lipase 41 Urine Color Urine Clarity Urine pH Ur Specific [place] Urine Protein Urine Glucose (UA) Urine Ketones Urine Occult Blood Urine Nitrite Urine Bilirubin Urine Urobilinogen Ur Leukocyte Esterase Urine RBC Urine WBC Ur Squamous Epith Cells Urine Bacteria Ur Microscopic Review Urine Culture Comments Influenza A (Rapid) Influenza B (Rapid) - Rads (name of study) CT head Radiology: Final report received (No CT evidence of acute intracranial abnormalities. Diffuse volume loss and moderate white matter chronic small vessel ischemic changes. No gross acute skull fracture) PD Medical Decision Making - ED course Complexity details: reviewed results, re-evaluated patient, considered differential, d/w patient, d/w family ED course: Well-appearing 81-year-old female presents emergency department for evaluation of 2 days feeling of shakes and tremors. She does report urinary urgency and frequency. No fevers. On exam she has unremarkable vital signs. No significant abdominal tenderness was elicited. We did obtain a CBC that showed no leukocytosis. Her electrolytes showed no worrisome findings. However her urinalysis is consistent with acute cystitis. The patient does not have dysuria but has Other symptomatology the points to acute cystitis. Clinically she does not present as septic She will be started on Vantin twice daily. Patient had also reported that she has had 2 falls over the last few months. She is intermittently using a walker to ambulate. Clinically she has an NIHSS of 0. She does not appear to be having an acute stroke. She is on a trial of either metformin versus placebo through the [facility] and in dementia study. We did obtain a CT of her head today that showed global decrease in brain volume but no acute bruising or bleeding. The patient states her primary care doctor is considering an outpatient MRI which I would recommend. She was able to ambulate with a steady gait using her walker today in the ER and she is advised to always use this at home. She will be discharged in stable condition with treatment for her acute cystitis. Otherwise emergent return precautions discussed Departure - Departure Disposition: Home, Self Care Clinical Impression: Generalized weakness Acute cystitis Qualifiers: Hematuria presence: without hematuria Qualified Code(s): N30.00 - Acute cystitis without hematuria Condition: Stable Record reviewed to determine appropriate education?: Yes Instructions: ED UTI Cystitis Female Prescriptions: Cefpodoxime Proxetil [Vantin] 100 mg PO Q12H #14 tablet Comments: You are seen today in the emergency department because you have been feeling generally shaky with teeth chattering and unwell. You do have some complaints of urinary urgency and frequency. Your urine does suggest an early infection. To treat this we are starting you on Vantin an antibiotic you will take twice daily for the next week. This prescription has been sent to the [facility] in [place]. Because you have had a few falls recently we did complete the CT of your head. It does show global brain shrinkage, consistent with age. However no Bruising or bleeding within the brain. Is important that you continue to follow close with your primary care doctor. As you discussed with me he is considering an MRI as an outpatient which would be advised. Always use your walker when ambulating. Most falls do occur within the home. Discussed this ED visit with your primary care provider. Return to the emergency department with new or worsening symptoms.
--- NOTE | 2022-06-04 13:01 | CT Report ---
PROCEDURE: HEAD WO INDICATIONS: recurrent falls TECHNIQUE: Noncontrast 4.5 mm thick angled axial sections acquired from the foramen magnum to the vertex. For r adiation dose reduction, the following was used: automated exposure control, adjustment of mA and/or kV according to patient size. COMPARISON: 09/09/2016 FINDINGS: Image quality: Excellent. CSF spaces: Basal cisterns are patent. No extra-axial fluid collections. The ventricles are symmet pepe in size and shape. Brain: No intracranial bleeds or masses. There is cerebral volume loss for age, with resultant vent ricular and sulcal prominence. There are periventricular and deep white matter chronic small vessel ischemic changes. There is intracranial internal carotid artery atherosclerosis. Skull and face: Calvarium and visualized facial bones appear intact, without suspicious lesions. Sinuses: Visualized sinuses and mastoids are clear. Prior surgery involving medial wall of right ma xillary sinus is seen. IMPRESSION: 1. No CT evidence of acute intracranial abnormalities. 2. Diffuse volume loss and moderate white matter chronic small vessel ischemic changes. 3. No gross acute skull fracture. Reviewed by: Orion Anderson MD on 06/04/2022 12:59 PM PST Approved by: Orion Anderson MD on 06/04/2022 12:59 PM PST Station ID: [id number]
[2022-06-04 13:33] LABS: BASOPHILS # (AUTO) 0.1 10^3/uL (0.0-0.1); BASOPHILS % (AUTO) 0.9 %; EOSINOPHILS # (AUTO) 0.2 10^3/uL (0.0-0.7); EOSINOPHILS % (AUTO) 2.6 %; HCT - HEMATOCRIT 39.2 % (37.0-47.0); HGB - HEMOGLOBIN 12.8 g/dL (12.0-16.0); LYMPHOCYTES # (AUTO) 1.6 10^3/uL (1.5-3.5); LYMPHOCYTES % (AUTO) 26.7 %; MEAN CORPUSCULAR HEMOGLOBIN 29.9 pg (27.0-31.0); MEAN CORPUSCULAR HGB CONC 32.7 g/dL (32.0-36.0); MEAN CORPUSCULAR VOLUME 91.6 fL (81.0-99.0); MEAN PLATELET VOLUME 10.1 fL (7.9-10.8); MONOCYTES # (AUTO) 0.4 10^3/uL (0.0-1.0); MONOCYTES % (AUTO) 6.1 %; NEUTROPHILS # (AUTO) 3.7 10^3/uL (1.5-6.6); NEUTROPHILS % (AUTO) 63.5 %; PLT - PLATELET COUNT 197 10^3/uL (130-450); RED BLOOD COUNT 4.28 10^6/uL (4.20-5.40); WHITE BLOOD COUNT 5.9 x10^3/uL (4.8-10.8)
[2022-06-04 13:35] LABS: BILIRUBIN,URINE NEGATIVE (NEGATIVE); GLUCOSE, URINE (UA) NEGATIVE (NEGATIVE); KETONES,URINE (UA) NEGATIVE (NEGATIVE); LEUKOCYTE ESTERASE, URINE MODERATE (NEGATIVE); NITRITE,URINE NEGATIVE (NEGATIVE); OCCULT BLOOD,URINE NEGATIVE (NEGATIVE); PROTEIN,URINE NEGATIVE (NEGATIVE); UROBILINOGEN,URINE 0.2 (NORMAL) E.U./dL (NORMAL)
[2022-06-04 13:48] LABS: ALBUMIN 4.3 g/dL (3.2-5.5); ALBUMIN/GLOBULIN RATIO 1.2 (1.0-2.2); BILIRUBIN,TOTAL 0.9 mg/dL (0.2-1.0); CALCIUM 9.1 mg/dL (8.5-10.3); CREATININE 0.7 mg/dL (0.4-1.0); POTASSIUM 3.5 mmol/L (3.5-5.0); TOTAL PROTEIN 7.8 g/dL (6.7-8.2)
[2022-06-04 13:59] LABS: BACTERIA,URINE None Seen /HPF (None Seen); CLARITY,URINE CLEAR (CLEAR); RBC,URINE None Seen /HPF (0-5); SQUAMOUS EPITHELIAL CELL,UR FEW Squamous (<= Few)
[2022-06-04] MEDS ORDERED: CEFPODOXIME PROXETIL 100 MG TABLET PO STA (14:40)
[2022-06-04 14:58] VITALS: BP 125/70
== END 2022-06-04 15:15 | disposition home or self-care (01) ==
LOC: ED 12:05
DX: N30.00 Acute cystitis without hematuria (principal); R53.1 Weakness; I10 Essential (primary) hypertension; Z91.81 History of falling
CPT/HCPCS: 36415; 70450; 80053; 81001; 83690; 85025; 87086; 87275; 87276; 99284; A9270; 81003

== ENCOUNTER 2022-10-13 09:39 | Day surgery (SDC) | payer MEDICARE, OTHER ==
[~2022-10-13 09:39] MED LIST: PROPOFOL 500 MG/50 ML 500 MG/50 ML VIAL ONE
[2022-10-13] MEDS ORDERED: LACTATED RINGERS 1,000 ML IV ONE ×2 (09:45→11:22)
--- NOTE | 2022-10-13 09:54 | ANESTHESIA ---
Pre-Anesthesia VS, & Labs - Diagnosis positive cologuard - Procedure colonoscopy Height: 5 ft 4 in - NPO Other (prep as directed) - Is Patient ?: No Home Medications and Allergies Acyclovir 1 tab PO .FREQ 09/09/16 Ezetimibe [Zetia] 2 tab PO DAILY 09/09/16 Furosemide [Lasix] 1 tab PO .FREQ 09/09/16 [place]-3 Acid Ethyl Esters [Lovaza] 1 tab PO DAILY 09/09/16 Amox/Clav 875/125 [Augmentin 875/125] 1 01/10/18 Aspirin [Adult Aspirin] 2 01/10/18 Potassium Chloride [Micro-K] 20 01/10/18 Allergies/Adverse Reactions: Allergies Allergy/AdvReac Type Severity Reaction Status Date / Time gabapentin [From Neurontin] Allergy Unknown Verified 10/12/22 13:18 Opioids - Morphine Analogues AdvReac Nausea Verified 10/12/22 13:18 Anes History & Medical History - Anesthetic History Anesthesia Complications: reports: No previous complications - Medical History Cardiovascular: reports: Hypertension Smoking Status: Never smoker - Surgical History General: reports: Cholecystectomy, Appendectomy Gynecologic: reports: Hysterectomy Orthopedic: reports: Knee replacement Exam General: Alert, Oriented x3 Dental: WNL Mouth Opening: Greater than 4 Fingerbreadths Neck Mobility: Normal Mallampati classification: II Thyromental Distance: greater than 6 cm Respiratory: Lungs clear Cardiovascular: Regular rate Plan Anesthesia Type: Total IV Consent for Procedure(s) Verified and Reviewed: Yes Code Status: Attempt Resuscitation ASA classification: 2-Mild systemic disease Is this case an emergency?: No
[2022-10-13] MEDS ORDERED: LIDOCAINE-MPF 2% 5 ML VIAL ONE (10:39)
[2022-10-13] MEDS ORDERED: PROPOFOL 200 MG/20 ML VIAL IVP ONE (11:18)
--- NOTE | 2022-10-13 11:28 | ANESTHESIA POST OP EVALUATION ---
Anesthesia Post Eval - Post Anesthesia Eval Vitals: Last Vital Signs Temp 36.8 C 10/13/22 11:20 Pulse 71 10/13/22 11:20 Resp 14 10/13/22 11:20 BP 175/91 H 10/13/22 11:20 Pulse Ox 95 10/13/22 11:20 O2 Flow Rate 0 10/13/22 10:10 CV Function Including HR & BP: Stable Pain Control: Satisfactory Nausea & Vomiting: Negative Mental Status: Baseline Respiratory Status: Airway Patent Hydration Status: Satisfactory Anesthesia Complications: None
[2022-10-13 12:25] VITALS: BP 142/83
== END 2022-10-13 09:40 | disposition home or self-care (01) ==
LOC: SDS 09:39
PROVIDERS: ATTEND Surgery
PROC: 0DBP8ZZ Excision of Rectum, Via Natural or Artificial Opening Endoscopic (ICD-10-PCS; 2022-10-13)
PROC: 0DBH8ZZ Excision of Cecum, Via Natural or Artificial Opening Endoscopic (ICD-10-PCS; principal; 2022-10-13 10:45)
DX: Z12.11 Encounter for screening for malignant neoplasm of colon (principal); R19.5 Other fecal abnormalities; D12.0 Benign neoplasm of cecum; K62.1 Rectal polyp
CPT/HCPCS: 45380; J7120

== ENCOUNTER 2023-01-12 17:13 | Outpatient (CLI) | payer MEDICARE, OTHER | END 2023-01-12 23:59 | disposition critical access hospital (66) | LOC: EMS 17:13 | DX: M54.9 Dorsalgia, unspecified (principal); R10.10 Upper abdominal pain, unspecified | CPT/HCPCS: A0425; A0429 ==

== ENCOUNTER 2023-01-12 17:36 | Emergency (ER) | payer MEDICARE, OTHER ==
--- OUTSIDE RECORDS SUMMARY | 2023-01-12 18:09 | EXTERNAL MEDICAL SUMMARY RPT | Continuity of Care Document ---
Author Name Unknown Address [address] [place] [address] Phone Organization [place] Address [address] [phone] Phone Problems date description facility 2022-12-30 12:17 Pain in left knee [facility] 2022-12-30 14:17 Pain in left knee [facility] Results/Labs test date facility value unit notes
[2023-01-12 18:50] LABS: BASOPHILS % (AUTO) 0.7 %; EOSINOPHILS # (AUTO) 0.2 10^3/uL (0.0-0.7); EOSINOPHILS % (AUTO) 4.1 %; HCT - HEMATOCRIT 39.7 % (37.0-47.0); HGB - HEMOGLOBIN 12.5 g/dL (12.0-16.0); LYMPHOCYTES # (AUTO) 1.6 10^3/uL (1.5-3.5); LYMPHOCYTES % (AUTO) 29.3 %; MEAN CORPUSCULAR HEMOGLOBIN 29.3 pg (27.0-31.0); MEAN CORPUSCULAR HGB CONC 31.5 g/dL (32.0-36.0); MEAN PLATELET VOLUME 10.2 fL (7.9-10.8); MONOCYTES # (AUTO) 0.3 10^3/uL (0.0-1.0); MONOCYTES % (AUTO) 6.3 %; NEUTROPHILS # (AUTO) 3.2 10^3/uL (1.5-6.6); NEUTROPHILS % (AUTO) 59.4 %; PLT - PLATELET COUNT 172 10^3/uL (130-450); RED BLOOD COUNT 4.27 10^6/uL (4.20-5.40); RED CELL DISTRIBUTION WIDTH 13.5 % (12.0-15.0); WHITE BLOOD COUNT 5.4 x10^3/uL (4.8-10.8)
--- NOTE | 2023-01-12 18:53 | ED Physician Documentation ---
History of Present Illness - Stated complaint Stated Complaint: BACK PX - Chief complaint Chief Complaint: Cardiac - Additonal information Additional information: 82-year-old female presents to the emergency department for evaluation of abdo tory pain. She does have chronic pain in the upper right back/thoracic region for which she chronically uses a TENS machine. This afternoon she began to feel a sudden pain just lower than that below her diaphragm that wrapped around to the anterior abdomen. It lasted about 30 minutes before dissipating. By the time EMS arrived she was pain-free and is currently pain-free at this time. Patient denies fevers, nausea or vomiting. Does report that for about the last several weeks she has had some minor discomfort with urination but not always. No flank pain. She denies chest pain and dyspnea. No melena or hematochezia. No nausea or vomiting. Past surgical history most significant for previous cholecystectomy, gastric bypass and appendectomy. Review of Systems Constitutional: denies: Fever Ears: reports: Reviewed and negative Cardiac: denies: Chest pain / pressure, Palpitations Respiratory: denies: Dyspnea, Cough GI: reports: Abdominal Pain. denies: Nausea, Vomiting, Constipation, Diarrhea, Hematemesis, Bloody / black stool : reports: Reviewed and negative Skin: reports: Reviewed and negative PD PAST MEDICAL HISTORY - Past Medical History Cardiovascular: Hypertension Respiratory: Sleep apnea, CPAP use GI: None : None HEENT: Glaucoma Psych: None Musculoskeletal: Osteoarthritis Derm: None - Past Surgical History Past Surgical History: Yes General: Cholecystectomy, Appendectomy Ortho: Knee replacement /[employer]: Hysterectomy HEENT: Cataracts, Tonsil/Adenoidectomy, Other - Present Medications Home Medications: Ambulatory Orders Medication Instructions Recorded Confirmed Acyclovir 1 tab PO .FREQ 09/09/16 09/09/16 Ezetimibe [Zetia] 2 tab PO DAILY 09/09/16 09/09/16 Furosemide [Lasix] 1 tab PO .FREQ 09/09/16 09/09/16 [place]-3 Acid Ethyl Esters [Lovaza] 1 tab PO DAILY 09/09/16 10/13/22 Albuterol Sulf [Ventolin Hfa 2 - 3 puffs INH Q4HR PRN #1 inhaler 01/10/18 Inhaler] Amox/Clav 875/125 [Augmentin 1 01/10/18 875/125] Aspirin [Adult Aspirin] 2 01/10/18 Potassium Chloride [Micro-K] 20 01/10/18 Cefpodoxime Proxetil [Vantin] 100 mg PO Q12H #14 tablet 06/04/22 Cefpodoxime Proxetil [Vantin] 100 mg PO Q12H #14 tablet 01/12/23 - Allergies Allergies/Adverse Reactions: Allergies Allergy/AdvReac Type Severity Reaction Status Date / Time gabapentin [From Neurontin] Allergy Unknown Verified 01/12/23 17:50 Opioids - Morphine Analogues AdvReac Nausea Verified 01/12/23 17:50 - Social History Does the pt smoke?: No Smoking Status: Never smoker Does the pt drink ETOH?: Yes Does the pt have substance abuse?: No - Immunizations Immunizations are current?: Yes PD ED PE NORMAL - General General: Alert and oriented X 3, No acute distress, Well developed/nourished - HEENT HEENT: Atraumatic - Cardiac Cardiac: RRR, No murmur - Respiratory Respiratory: No respiratory distress, Clear bilaterally - Abdomen Abdomen: Normal bowel sounds, Soft - Derm Derm: Normal color, Warm and dry - Extremities Extremities: No deformity - Neuro Neuro: Alert and oriented X 3, apparel patternmaker 2-12 intact Eye Opening: Spontaneous Motor: Obeys Commands Verbal: Oriented GCS Score: 15 Results - Vitals Vitals: Vital Signs - 24 hr 01/12/23 01/12/23 01/12/23 17:45 19:49 21:40 Temperature 36.6 C 35.8 C L Heart Rate 59 L 64 74 Respiratory 16 12 18 Rate Blood Pressure 143/76 H 149/80 H 132/72 H O2 Saturation 100 99 100 01/12/23 01/12/23 22:00 23:25 Temperature Heart Rate 61 60 Respiratory 18 20 Rate Blood Pressure 153/82 H 157/95 H O2 Saturation 98 96 Oxygen O2 Source Room air - EKG (time done) 1809 EKG releavant findings:: EKG personally interpreted by author of this note. Relevant findings are: Rate: Rate (enter#) (57) Rhythm: NSR [place]: Normal Intervals: Normal [place]. No: Prolonged QT QRS: Normal Ischemia: Normal ST segments Compare to prior EKG: Old EKG unavailable Computer interpretation: Agree with computer - Labs Labs: Laboratory Tests 01/12/23 01/12/23 01/12/23 18:44 18:44 20:08 WBC 5.4 RBC 4.27 Hgb 12.5 Hct 39.7 MCV 93.0 MCH 29.3 MCHC 31.5 L RDW 13.5 Plt Count 172 MPV 10.2 Neut # (Auto) 3.2 Lymph # (Auto) 1.6 Karnes # (Auto) 0.3 Eos # (Auto) 0.2 Baso # (Auto) 0.0 Absolute Nucleated RBC 0.00 Nucleated RBC % 0.0 Sodium 139 Potassium 4.0 Chloride 105 Carbon Dioxide 28 Anion Gap 6.0 BUN 26 H Creatinine 0.6 Estimated GFR (MDRD) 96 Glucose 93 Calcium 9.3 Total Bilirubin 0.3 AST 19 ALT 12 Alkaline Phosphatase 50 Troponin I High Sens 3.0 Total Protein 6.9 Albumin 4.2 Globulin 2.7 Albumin/Globulin Ratio 1.6 Lipase 35 Urine Color YELLOW Urine Clarity HAZY Urine pH 7.5 Ur Specific [place] 1.015 Urine Protein NEGATIVE Urine Glucose (UA) NEGATIVE Urine Ketones NEGATIVE Urine Occult Blood NEGATIVE Urine Nitrite NEGATIVE Urine Bilirubin NEGATIVE Urine Urobilinogen 0.2 (NORMAL) Ur Leukocyte Esterase LARGE H Urine RBC 0-5 Urine WBC >25 H Ur Squamous Epith Cells FEW Squamous Urine Bacteria Few Ur Microscopic Review INDICATED Urine Culture Comments INDICATED - Rads (name of study) cxr Relevant Findings:: Final report received (no acute cardiopulmonary process) Ct abd Relevant Findings:: See rad report PD Medical Decision Making - ED course Complexity details: reviewed results, re-evaluated patient, d/w patient, d/w family ED course: 82 year old female who has chronic right upper back pain presents to the ED for evaluation of sudden onset upper abdominal pain that Wrapped around her upper abdomen. It was sharp and lasted about 30 Minutes before fully abating. Past surgical history includes previous cholecystectomy and appendectomy. When the pain did not subside she called EMS but by the time they arrived the pain had fully abated and on presentation in the emergency department she was pain-free. She denies chest pain, dyspnea, urinary symptoms nausea and vomiting. Here in the emergency department we did obtain CBC, electrolytes and per my interpretation no acute worrisome abnormalities. Her EKG showed sinus rhythm without ischemic findings. Troponin was negative. Urinalysis was collected and showed large amount of LE and WBCs but rare bacteria. given report f 2 weeks urinary discomfort, will start pt on vantin. CT of abd showed no acute abnormalities, but did show a 5mm lung nodule with advice for 6 month f/u. Cllinically pt with w/o e/o bowel obstruction, perforation, hematuria, pyelonephritis, ureter obstruction. DC home with the usual emergent return precautions discussed Departure - Departure Disposition: 01 Home, Self Care Clinical Impression: Upper abdominal pain, Acute cystitis Condition: Stable Record reviewed to determine appropriate education?: Yes Instructions: ED Abdominal Pain Female Non-Specific Abdominal Pain Prescriptions: Cefpodoxime Proxetil [Vantin] 100 mg PO Q12H #14 tablet Comments: You are seen today in the emergency department for pain in your upper abdomen that started suddenly and lasted about 30 minutes before fully going away. You do have a chronic pain in your upper right back however. Today in the emergency department your CBC, electrolytes were essentially unremarkable. Your EKG showed no signs of a heart attack. Your urine suggested infection . I have sent a prescription for an antibiotic called Koko to the [facility] in [place]. Please fill this and begin taking twice daily for the next week. The CT of your abdomen showed a spot on your left lung base and you should have follow up CT in 6 months as coordinated by your primary care provider. It otherwise did not show any worrisome findings. At this time is not clear what the cause of your abdominal pain was. I recommend that you follow closely with your primary care provider. If your symptoms worsen, you develop chest pain, shortness of air, fevers, have vomiting or black or bloody stools then please return immediately to the ER for repeat evaluation. Forms: PCP List Discharge Date/Time: 01/12/23 23:26
--- NOTE | 2023-01-12 18:59 | XRAY Report ---
PROCEDURE: Chest 1 View X-Ray INDICATIONS: Chest Pain TECHNIQUE: One view of the chest was acquired. COMPARISON: CXR 01/10/2018. FINDINGS: Surgical changes and devices: None. Lungs and pleura: No pleural effusions or pneumothorax. Lungs are clear. Mediastinum: Mediastinal contours appear normal. Heart size is normal. Bones and chest wall: No suspicious bony lesions. Overlying soft tissues appear unremarkable. IMPRESSION: No acute cardiopulmonary process. Reviewed by: David Lang MD on 01/12/2023 6:58 PM PDT Approved by: David Lang MD on 01/12/2023 6:58 PM PDT Station ID: [id number]
[2023-01-12 19:12] LABS: ALBUMIN 4.2 g/dL (3.2-5.5); ALBUMIN/GLOBULIN RATIO 1.6 (1.0-2.2); BILIRUBIN,TOTAL 0.3 mg/dL (0.2-1.0); CALCIUM 9.3 mg/dL (8.5-10.3); CREATININE 0.6 mg/dL (0.6-1.3); TOTAL PROTEIN 6.9 g/dL (6.4-8.9)
[2023-01-12 20:24] LABS: BILIRUBIN,URINE NEGATIVE (NEGATIVE); GLUCOSE, URINE (UA) NEGATIVE (NEGATIVE); KETONES,URINE (UA) NEGATIVE (NEGATIVE); LEUKOCYTE ESTERASE, URINE LARGE (NEGATIVE); NITRITE,URINE NEGATIVE (NEGATIVE); OCCULT BLOOD,URINE NEGATIVE (NEGATIVE); PH,URINE 7.5 PH (5.0-7.5); PROTEIN,URINE NEGATIVE (NEGATIVE); UROBILINOGEN,URINE 0.2 (NORMAL) E.U./dL (NORMAL)
[2023-01-12 20:30] LABS: CLARITY,URINE HAZY (CLEAR)
[2023-01-12 20:35] LABS: BACTERIA,URINE Few /HPF (None Seen); RBC,URINE 0-5 /HPF (0-5); SQUAMOUS EPITHELIAL CELL,UR FEW Squamous (<= Few); WBC,URINE >25 /HPF (0-5)
--- NOTE | 2023-01-12 22:21 | CT Report ---
PROCEDURE: ABDOMEN/PELVIS W INDICATIONS: upper abdominal pain CONTRAST: 100 mL Omnipaque 300 TECHNIQUE: After the administration of intravenous contrast, 5 mm thick sections acquired from the diaphragms to the symphysis. 5 mm thick coronal and sagittal reformats were acquired. For radiation dose reducti on, the following was used: automated exposure control, adjustment of mA and/or kV according to brayden ent size. COMPARISON: None FINDINGS: Image quality: Excellent. Lung bases and heart: 5 mm solid nodule, left lower lobe (series 3, image 8). Small hiatal hernia. Liver: No solid mass. Gallbladder and biliary tree: Surgically absent. No biliary dilation, accounting for post-cholecystec bryan state. Spleen: No splenomegaly. Pancreas: No pancreatic ductal dilation. Adrenals: No adrenal nodule. Kidneys and ureters: No hydronephrosis. No renal cystic lesion which requires follow up. No solid mas s. Early contrast filling within the renal collecting systems. Bowel and peritoneum: No bowel distension. No pathologic free fluid. Gastric sleeve surgery. Probable low anterior resection. Lymph nodes: No central or retroperitoneal adenopathy. Vessels: No infrarenal aortic aneurysm. PELVIS Reproductive organs: Unremarkable. Bladder: No abnormal wall thickening, accounting for underdistension. Pelvic lymph nodes: No pelvic adenopathy by size criteria. Bones: No aggressive osseous abnormality. Grade 1 anterolisthesis of L4 on L5 and L3 on L4. Moderate to severe spinal canal narrowing at L3-4, due to superimposed asymmetric posterior disc bulge, facet hypertrophy. Facet separate or hardware at L3-4. Other: Moderate, fat-containing umbilical hernia. IMPRESSION: No acute abnormality. Moderate to severe spinal canal narrowing at L3-4 due to degenerative disc disease and facet arthrosi s. 5 mm solid nodule in the left lower lobe. Consider 12 month follow-up if this patient is at high risk for developing lung cancer, per Fleischner Society guidelines. Reviewed by: Shayan Berg on 01/12/2023 10:20 PM PDT Approved by: Shayan Berg on 01/12/2023 10:20 PM PDT Station ID: [id number]
[2023-01-12 23:30] VITALS: BP 157/95; O2SAT 96
[2023-01-13] MEDS ORDERED: iohexoL-300 100 ML VIAL IVP ONE (03:52)
== END 2023-01-12 23:26 | disposition home or self-care (01) ==
LOC: EDUNIT# → ED 17:36
DX: N30.00 Acute cystitis without hematuria (principal); I10 Essential (primary) hypertension
CPT/HCPCS: 36415; 80053; 81001; 81003; 83690; 84484; 85025; 87086; 93005; 99284

== ENCOUNTER 2023-06-22 08:00 | Outpatient (CLI) | payer MEDICARE, OTHER ==
[2023-06-22 20:26] LABS: BILIRUBIN,URINE NEGATIVE (NEGATIVE); CLARITY,URINE CLEAR (CLEAR); GLUCOSE, URINE (UA) NEGATIVE (NEGATIVE); KETONES,URINE (UA) NEGATIVE (NEGATIVE); LEUKOCYTE ESTERASE, URINE SMALL (NEGATIVE); NITRITE,URINE NEGATIVE (NEGATIVE); OCCULT BLOOD,URINE NEGATIVE (NEGATIVE); PROTEIN,URINE NEGATIVE (NEGATIVE); UROBILINOGEN,URINE 0.2 (NORMAL) E.U./dL (NORMAL)
[2023-06-22 20:45] LABS: BACTERIA,URINE Rare /HPF (None Seen); RBC,URINE 0-5 /HPF (0-5); SQUAMOUS EPITHELIAL CELL,UR RARE Squamous (<= Few)
== END 2023-06-22 23:59 | disposition home or self-care (01) ==
LOC: LAB.S 08:00
PROVIDERS: ATTEND Emergency Medicine
DX: R30.0 Dysuria (principal)
CPT/HCPCS: 81001; 87086

== ENCOUNTER 2023-06-27 08:00 | Outpatient (CLI) | payer MEDICARE, OTHER ==
[2023-06-27 19:55] LABS: BILIRUBIN,URINE NEGATIVE (NEGATIVE); GLUCOSE, URINE (UA) NEGATIVE (NEGATIVE); KETONES,URINE (UA) NEGATIVE (NEGATIVE); LEUKOCYTE ESTERASE, URINE MODERATE (NEGATIVE); NITRITE,URINE NEGATIVE (NEGATIVE); OCCULT BLOOD,URINE NEGATIVE (NEGATIVE); PROTEIN,URINE NEGATIVE (NEGATIVE); UROBILINOGEN,URINE 0.2 (NORMAL) E.U./dL (NORMAL)
[2023-06-27 20:00] LABS: CLARITY,URINE CLEAR (CLEAR)
[2023-06-27 20:15] LABS: BACTERIA,URINE Rare /HPF (None Seen); RBC,URINE 0-5 /HPF (0-5); SQUAMOUS EPITHELIAL CELL,UR RARE Squamous (<= Few)
== END 2023-06-27 23:59 | disposition home or self-care (01) ==
LOC: LAB.S 08:00
PROVIDERS: ATTEND Emergency Medicine
DX: R30.0 Dysuria (principal)
CPT/HCPCS: 81001; 87086

== ENCOUNTER 2023-07-24 08:00 | Outpatient (CLI) | payer MEDICARE, OTHER ==
--- NOTE | 2023-07-25 12:21 | XRAY Report ---
PROCEDURE: Thoracic Spine 3V INDICATIONS: CHRONIC BACK PAIN TECHNIQUE: 3 views of the thoracic spine were acquired. COMPARISON: None. FINDINGS: Bones: No fractures or dislocations. No suspicious bony lesions. 12 pairs of ribs are noted, and a ppear intact where visualized. Mild to moderate multilevel degenerative changes with osteophytosis a nd disc height loss. Soft tissues: No paravertebral stripe thickening. Aortic arch is calcified, indicating atherosclero sis. Visualized lungs are clear. Normal mediastinal contour. IMPRESSION: 1.No acute bony abnormality. 2.Kahz-aq-ydxrfmbs multilevel degenerative changes of the thoracic spine. Reviewed by: Jessica Rosenthal MD on 07/25/2023 12:19 PM PDT Approved by: Jessica Rosenthal MD on 07/25/2023 12:19 PM PDT Station ID: [id number]
--- NOTE | 2023-07-25 16:56 | XRAY Report ---
PROCEDURE: Lumbar Spine 4V INDICATIONS: CHRONIC BACK PAIN TECHNIQUE: 3 views of the lumbar spine were acquired. COMPARISON: CT abdomen and pelvis on January 12, 2023. FINDINGS: Bones: 5 [id number] vertebrae are present. Surgical device projecting over the L4 spinous proc ess demonstrates perihardware lucency. Grade 1 anterolisthesis of L4 on L5 and L5 on S1. Gxji-gi-gjbw rate multilevel degenerative changes with osteophytosis, disc height loss and facet arthropathy.. No vertebral body compression fractures. No suspicious bony lesions. Soft tissues: Overlying bowel gas pattern is normal. No suspicious soft tissue calcifications. Cho lecystectomy clips. Calcification of the abdominal aorta. IMPRESSION: 1.Surgical device projecting over the L4 spinous process demonstrates perihardware lucency which may represent sequela of loosening. Consider a CT of the lumbar spine for further evaluation. 2.Vknz-du-ccuzqcbz multilevel degenerative changes of the spine with grade 1 anterolisthesis of L4 on L5 and L5 on S1. Reviewed by: Jessica Rosenthal MD on 07/25/2023 4:55 PM PDT Approved by: Jessica Rosenthal MD on 07/25/2023 4:55 PM PDT Station ID: [id number]
== END 2023-07-24 23:59 | disposition home or self-care (01) ==
LOC: DI.S 08:00
PROVIDERS: ATTEND Emergency Medicine
DX: M47.814 Spondylosis without myelopathy or radiculopathy, thoracic region (principal); M47.816 Spondylosis without myelopathy or radiculopathy, lumbar region; M47.817 Spondylosis without myelopathy or radiculopathy, lumbosacral region; M43.16 Spondylolisthesis, lumbar region; M43.17 Spondylolisthesis, lumbosacral region

== ENCOUNTER 2023-11-30 08:00 | Outpatient (CLI) | payer MEDICARE, OTHER ==
--- NOTE | 2023-11-30 10:15 | XRAY Report ---
PROCEDURE: Knee 3V RT INDICATIONS: RIGHT KNEE SPRAIN TECHNIQUE: 3 views of the knee(s) were acquired. COMPARISON: 01/13/2021. FINDINGS: Bones: Expected appearance of total right knee arthroplasty with no evidence of hardware failure or loosening. No fractures or dislocations. No suspicious bony lesions. Soft tissues: Small knee joint effusion. No suspicious soft tissue calcifications or masses. There i s a small amount of presumed cement in a cylindrical shape which is acting as a small intra-articular body. It was present on the previous study from 2020, and is now in a slightly different location be tween the upper aspect of the patella and the top of the anterior aspect of the femoral prosthesis. IMPRESSION: Expected appearance of total right knee arthroplasty. Small intra-articular body of uncertain clinica l significance. Small knee joint effusion. Reviewed by: Brendan Anthony MD on 11/30/2023 10:14 AM PDT Approved by: Brendan Anthony MD on 11/30/2023 10:14 AM PDT Station ID: [id number]
== END 2023-11-30 23:59 | disposition home or self-care (01) ==
LOC: DI.S 08:00
PROVIDERS: ATTEND Physician Assistant Medical
DX: S83.8X1A Sprain of other specified parts of right knee, initial encounter (principal); M25.461 Effusion, right knee; Z96.651 Presence of right artificial knee joint

== ENCOUNTER 2024-01-04 08:18 | Outpatient (CLI) | payer MEDICARE, OTHER ==
--- NOTE | 2024-01-04 12:50 | XRAY Report ---
PROCEDURE: Knee 1-2V RT INDICATIONS: OTHER SPECIFIED INJURIES OF RT LOWER LEG TECHNIQUE: 2 views of the knee(s) were acquired. COMPARISON: X-ray knee 11/30/2023 FINDINGS: Bones: No fractures or dislocations. No suspicious bony lesions. Knee arthroplasty on the right. Hardware is intact without evidence of hardware fracture or periprosthetic lucency to suggest looseni ng. Left knee demonstrates moderate to severe bicompartmental arthritic change. Soft tissues: No knee joint effusion. No suspicious soft tissue calcifications or masses. IMPRESSION: Stable appearance of right knee arthroplasty. Reviewed by: Roxann Weathers MD on 01/04/2024 12:49 PM PDT Approved by: Roxann Weathers MD on 01/04/2024 12:49 PM PDT Station ID: [id number]
--- NOTE | 2024-01-04 12:51 | XRAY Report ---
PROCEDURE: Knee 4+V LT INDICATIONS: KNEE PAIN,LEFT TECHNIQUE: 4 views of the knee(s) were acquired. COMPARISON: Knee 11/30/2023 FINDINGS: Bones: No fractures or dislocations. No suspicious bony lesions. Moderate to severe tricompartmen ayden arthritic change most severe medially. Periarticular osteophytes and subchondral sclerosis are pr esent. Soft tissues: Minimal knee joint effusion. No suspicious soft tissue calcifications or masses. IMPRESSION: Moderate to severe tricompartmental arthritic change, stable. Reviewed by: Roxann Weathers MD on 01/04/2024 12:50 PM PDT Approved by: Roxann Weathers MD on 01/04/2024 12:50 PM PDT Station ID: [id number]
== END 2024-01-04 08:19 | disposition home or self-care (01) ==
LOC: DI 08:18
PROVIDERS: ATTEND Orthopaedic Surgery
DX: S89.81XA Other specified injuries of right lower leg, initial encounter (principal); M17.12 Unilateral primary osteoarthritis, left knee; Z96.651 Presence of right artificial knee joint

== ENCOUNTER 2024-02-06 08:00 | Outpatient (CLI) | payer MEDICARE, OTHER ==
--- NOTE | 2024-02-07 15:03 | XRAY Report ---
PROCEDURE: Thoracic Spine 3V INDICATIONS: THORACIC BACK PAIN TECHNIQUE: 3 views of the thoracic spine were acquired. COMPARISON: Thoracic spine radiographs 07/24/2023. FINDINGS: Bones: No acute fractures or dislocations. No suspicious bony lesions. 12 pairs of ribs are noted, and appear intact where visualized. Exaggerated thoracic kyphosis. Multilevel anterior osteophytes and degenerative endplate changes. Postsurgical changes are partially imaged at the upper lumbar spin e. Bones are osteopenic. Soft tissues: No paravertebral stripe thickening. IMPRESSION: No acute bony abnormality. Exaggerated thoracic kyphosis with osteopenia and mild to moderate spondyl osis. Reviewed by: Robson Gomez MD on 02/07/2024 3:02 PM PDT Approved by: Robson Gomez MD on 02/07/2024 3:02 PM PDT Station ID: [id number]
== END 2024-02-06 23:59 | disposition home or self-care (01) ==
LOC: DI.S 08:00
PROVIDERS: ATTEND Physician Assistant
DX: M47.814 Spondylosis without myelopathy or radiculopathy, thoracic region (principal); M40.204 Unspecified kyphosis, thoracic region; M85.88 Other specified disorders of bone density and structure, other site

== ENCOUNTER 2025-02-24 21:34 | Inpatient (IN) ==
--- NOTE | 2025-02-24 21:40 | ED Physician Documentation ---
History of Present Illness Stated complaint Stated Complaint: GLF HIP PX Chief complaint Chief Complaint: Trauma Ext History obtained from History obtained from: Patient History of Present Illness Pain level max: 9 Pain level now: 9 Additonal information Additional information: 84-year-old female, history of Alzheimer's dementia, paroxysmal atrial fibrillation, sleep apnea, dyslipidemia, osteopenia. Presents after a ground- level fall at home onto hardwood floor. Landed on the right hip. Unable to stand or bear weight. No neck or back pain. No changes in mental status. Not on anticoagulants. Meds/Allgy Home Medications Ambulatory Orders Medication Instructions Recorded Confirmed latanoprost 0.005 % eye drops 1 drp ophthalmic (eye) O NCE 02/23/24 01/27/25 timolol 0.5 % eye drops 1 drp ophthalmic (eye) QDAY 02/23/24 01/27/25 acetaminophen 500 mg tablet 500 - 1,000 mg PO Q6H PRN pain 10/05/24 01/27/25 loperamide 2 mg tablet 2 mg PO Q6H PRN loose stool 10/05/24 01/27/25 calcium 300 mg-D3 20 mcg-magnesium 1 tab PO BID #30 ta bs 10/26/24 01/27/25 25 mg-coppr 0.5 [id number] tablet cholecalciferol (vitamin D3) 50 50 mcg PO QDAY #30 cap s 10/26/24 01/27/25 mcg (2,000 unit) capsule zinc oxide-cod liver oil 40 % 1 applic topical 5XD 10 days #113 11/07/24 01/27/25 topical paste (Desitin) grams memantine 10 mg tablet (Namenda) 10 mg PO BID 12/07/24 01/27/25 dorzolamide 2 % eye drops 1 drp ophthalmic (eye) BID 0 12/31/24 01/27/25 oxycodone 5 mg tablet 2.5 - 5 mg (0.5 - 1 x 5 mg) PO 01/27/25 01/27/25 Q4-6H PRN pain #60 tabs sertraline 25 mg tablet 25 mg PO QDAY #30 tabs 01/2701/27/25 Allergies Allergies Allergy/AdvReac Type Severity Reaction Status Date / Time No Known Drug Allergies Allergy Verified 02/24/25 21:59 PFSH Active Problems All Active Problems (Updated 02/24/25 @ 22:29 by Afshin Gallardo MD) Fracture of femoral neck, right (Acute) Venous stasis of lower extremity (Chronic) Headache (Chronic) Left knee pain (Chronic) Vulvovaginal pain (Acute) Vaginitis (Acute) Cystitis (Acute) Dysuria (Acute) Caregiver reluctant to provide care (Chronic) Prediabetes (Chronic) Dyslipidemia (Chronic) Osteopenia (Chronic) History of bariatric surgery (Chronic) ESPINOZA (obstructive sleep apnea) (Chronic) Impairment of balance (Chronic) Glaucoma (Chronic) Paroxysmal atrial fibrillation (Chronic) Chronic thoracic back pain (Chronic) History of acoustic neuroma (Chronic) Migraine headache without aura (Chronic) Complaint of fatigable weakness (Acute) Alzheimer's dementia (Chronic) Medical History Medical History Urinary tract infection Dyspnea Surgical History Surgical History Partial traumatic transphalangeal amputation of thumb Hx of hemorrhoidectomy History of hysterectomy (~1978) History of carpal tunnel release S/P knee replacement (~2008) Right History of cholecystectomy (~1984) Status post stereotactic radiosurgery (~2010) L acoustic neuroma History of sleeve gastrectomy (~2017) with hiatal hernia repair Family History Family History Sister Alzheimers disease Father CAD (coronary artery disease) Heart attack Alcoholism Social History Social History (Updated 12/31/24 @ 06:53 by ARLENE Ngo, MSN) Smoking Status: Never smoker Do you dip or chew tobacco?: No Living arrangement: At home Marital Status: Living Condition: With spouse/s.o. 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 Patient has POLST: Yes POLST CPR Status: Do Not Attempt Resuscitation (DNAR) / Allow Natural Exam Exam Vital Signs: Vital Signs x48h Temp Pulse Resp BP Pulse Ox 02/24/25 22:30 68 83 L 02/24/25 22:13 64 16 139/103 H 92 02/24/25 21:43 36.5 C 02/24/25 21:39 73 20 156/94 H 98 Constitutional normal general appearance, no apparent distress and average body habitus HENMT normocephalic and head/scalp atraumatic Eyes PERRL Neck/C-Spine trachea midline, cervical spine nontender and cervical full ROM noted Respiratory normal respiratory effort and clear to auscultation bilaterally Cardiovascular normal heart rate noted and regular rhythm noted Gastrointestinal abdomen soft to palpation, nontender to palpation and nondistended Back/Pelvis no thoracic spine tenderness and no lumbar spine tenderness Extremities Tender to palpation over the right hip. Right leg is externally rotated and shortened. Neurovascularly intact. Psychiatry at her normal baseline Skin skin color normal Results Vitals Vitals: Vital Signs - 24 hr 02/24/25 21:39 02/24/25 21:43 02/24/25 22:01 Temperature 36.5 C Temperature Source Temporal Artery Scan Pulse Rate 73 Respiratory Rate 20 Blood Pressure 156/94 H O2 Saturation 98 O2 Source Room air Pain Intensity 9 10 02/24/25 22:13 02/24/25 22:30 Temperature Temperature Source Pulse Rate 64 68 Respiratory Rate 16 Blood Pressure 139/103 H O2 Saturation 92 83 L O2 Source Room air Room air Pain Intensity 10 Oxygen O2 Source Room air Labs Labs: Laboratory Tests 02/24/25 21:46 WBC 6.5 RBC 4.19 L Hgb 12.9 Hct 39.8 MCV 95.0 MCH 30.8 MCHC 32.4 RDW 13.6 Plt Count 163 MPV 10.4 Neut # (Auto) 4.0 Lymph # (Auto) 1.9 [place] # (Auto) 0.4 Eos # (Auto) 0.1 Baso # (Auto) 0.0 Absolute Nucleated RBC 0.00 Nucleated RBC % 0.0 Sodium 140 Potassium 3.9 Chloride 105 Carbon Dioxide 27 Anion Gap 8.0 BUN 22 H Creatinine 0.8 Estimated GFR (MDRD) 68 L Glucose 99 Calcium 9.9 Total Bilirubin 0.5 AST 21 ALT 18 Alkaline Phosphatase 49 Total Protein 7.3 Albumin 4.5 Globulin 2.8 Albumin/Globulin Ratio 1.6 Rads (name of study) R hip xray: Relevant Findings:: Final report received PD Medical Decision Making ED course Complexity details: reviewed results, re-evaluated patient, considered differential, d/w patient and d/w family ED course: 84-year-old female with a right femoral neck fracture. Neurovascular intact. Pain well-controlled in the emergency department. Will admit to the hospitalist for further care. Orthopedist, Dr. Yarbrough is on-call, left a voicemail, paged and sent a text message. No callback received, he can consult on the patient in the morning. This document was made in part using voice recognition software. While efforts are made to proofread this document, sound alike and grammatical errors may occur. Discharge Plan Discharge Patient Disposition: 66 [facility] DC/Xfer Condition: Stable Clinical Impression: Fracture of femoral neck, right Qualifiers: Encounter type: initial encounter Fracture type: closed Qualified Code(s): S72.001A - Fracture of unspecified part of neck of right femur, initial encounter for closed fracture Alzheimer's dementia Qualifiers: Alzheimer's disease onset: unspecified onset Dementia severity: moderate Dementia behavioral or psychological symptom: unspecified whether behavioral, psychotic, or mood disturbance or anxiety Qualified Code(s): G30.9 - Alzheimer's disease, unspecified
[2025-02-24 21:52] LABS: HCT - HEMATOCRIT 39.8 % (37.0-47.0); HGB - HEMOGLOBIN 12.9 g/dL (12.0-16.0); MEAN PLATELET VOLUME 10.4 fL (7.9-10.8); NRBC ABSOLUTE COUNT (AUTO) 0.00 x10^3/uL; NUCLEATED RED BLOOD CELLS AUTO 0.0 /100WBC; PLT - PLATELET COUNT 163 10^3/uL (130-450); RED CELL DISTRIBUTION WIDTH 13.6 % (12.0-15.0)
[2025-02-24] MEDS: HYDROmorphone 1 MG/ML CARPUJECT IVP STA (22:01)
[2025-02-24 22:14] LABS: ALT ALANINE AMINOTRANSFERASE 18.0 IU/L (10-60); AST ASPARTATE AMINOTRANSFERASE 21.0 IU/L (10-42); BUN - BLOOD UREA NITROGEN 22.0 mg/dL (6-20); CARBON DIOXIDE - CO2 27.0 mmol/L (21-32); CREATININE 0.8 mg/dL (0.6-1.3); GFR - MDRD 68.0 (>89)
[2025-02-24] MEDS: MIDAZOLAM 2 MG/2 ML VIAL IVP STA (22:14)
--- NOTE | 2025-02-24 22:34 | XRAY Report ---
PROCEDURE: XR Hip w/Pelvis 2-3V RT INDICATIONS: fall, pain TECHNIQUE: AP pelvis with lateral view(s) of the hip(s). COMPARISON: None. FINDINGS: Bones: Displaced and impacted right femoral neck fracture.. No suspicious bony lesions. Soft tissues: No suspicious soft tissue calcifications or masses. IMPRESSION: Displaced and impacted right femoral neck fracture. Reviewed by: Jorge Martínez MD on 02/24/2025 10:31 PM PDT Approved by: Jorge Martínez MD on 02/24/2025 10:31 PM PDT Station ID: [id number]
--- OUTSIDE RECORDS SUMMARY | 2025-02-24 22:43 | EXTERNAL MEDICAL SUMMARY RPT | Continuity of Care Document ---
Author Organization [facility] Address [address] [place] [id number] Phone Problems date description facility 2024-12-09 12:05 Dementia in other di seases classified elsewhere, moderate, without behavioral disturbance, psychotic disturbance, mood disturbance, and anxiety [facility] 2024-12-09 12:05 Alzheimer's disease, unspecifie d [facility] 2024-12-09 12:05 Tension-type headache, unspecif ied, not intractable [facility] 2024-12-09 12:05 Other chronic pain [facility] 2024-12-09 12:05 Pain in left knee [facility] 2024-12-09 12:05 Pain in thoracic spine [facility] 2024-12-09 12:05 Other abnormalities of gait and mobility [facility] 2024-12-09 12:05 Encounter for palliative care [facility] 2024-12-09 12:05 Other problems related to care provider dependency [facility] 2024-12-09 12:05 Personal history of other benig n neoplasm [facility] 2024-12-09 12:05 Bariatric surgery status [facility] 2024-12-16 14:48 Encounter for palliative care [facility] 2024-12-31 19:49 Dysuria [facility] 2025-01-01 07:52 Dysuria [facility] 2025-01-01 08:56 Mastodynia [facility] 2025-01-01 08:56 Dysuria [facility] 2025-01-08 12:43 Dementia in other di seases classified elsewhere, moderate, without behavioral disturbance, psychotic disturbance, mood disturbance, and anxiety [facility] 2025-01-08 12:43 Alzheimer's disease, unspecifie d [facility] 2025-01-08 12:43 Tension-type headache, unspecif ied, not intractable [facility] 2025-01-08 12:43 [facility] 2025-01-08 12:43 [facility]:43 [facility] 12:43 Other abnormalities of gait and [facility] 2025-01-08 12:43 [facility]25-01-08 12:43 [facility] 12:43 Personal history of other benig n neoplasm [facility] 2025-01-30 13:11 Dementia in other di seases classified elsewhere, moderate, without behavioral disturbance, psychotic disturbance, mood disturbance, and anxiety [facility] 2025-01-30 13:11 Alzheimer's disease, unspecifie d [facility] 2025-01-30 13:11 [facility] 2025-01-30 13:11 Other specified disorders of ve ins [facility] 2025-01-30 13:11 Pain in thoracic spine [facility] 2025-01-30 13:11 Other abnormalities of gait and mobility [facility] 2025-01-30 13:11 [facility]uria [facility] 2025-01-30 13:11 Encounter for palliative care [facility] 2025-01-30 13:11 Other specified counseling [facility] 2025-01-30 13:11 Personal history of other benig n neoplasm [facility] 2025-02-16 13:00 [facility] Results/Labs test date facility value unit notes Result panel 1 PENICILLIN-G 2024-12-31 14:00 [facility] >=0.5 (missing) (missing) CEFEPIME 2024-12-31 14:00 [facility] <=0.12 (missing) (missing) ERTAPENEM 2024-12-31 14:00 [facility] <=0.12 (missing) (missing) LEVOFLOXACIN 2024-12-31 14:00 [facility] <=0.12 (missing) (missing) TIGECYCLINE 2024-12-31 14:00 [facility] <=0.12 (missing) (missing) CEFTRIAXONE 2024-12-31 14:00 [facility] <=0.25 (missing) (missing) CIPROFLOXACIN 2024-12-31 14:00 [facility] <=0.25 (missing) (missing) CLINDAMYCIN 2024-12-31 14:00 [facility] <=0.25 (missing) (missing) ERYTHROMYCIN 2024-12-31 14:00 [facility] <=0.25 (missing) (missing) IMIPENEM 2024-12-31 14:00 [facility] <=0.25 (missing) (missing) MOXIFLOXACIN 2024-12-31 14:00 [facility] <=0.25 (missing) (missing) QUINUPRISTIN/DALF OPRISTIN 2024-12-31 14:00 [facility] <=0.25 (missing) (missing) CIPROFLOXACIN 2024-12-31 14:00 [facility] <=0.5 (missing) (missing) GENTAMICIN 2024-12-31 14:00 [facility] <=0.5 (missing) (missing) RIFAMPIN 2024-12-31 14:00 [facility] <=0.5 (missing) (missing) GENTAMICIN 2024-12-31 14:00 [facility] <=1 (missing) (missing) TETRACYCLINE 2024-12-31 14:00 [facility] <=1 (missing) (missing) TOBRAMYCIN 2024-12-31 14:00 [facility] <=1 (missing) (missing) TRIMETHOPRIM/SULF AMETHOXAZOLE 2024-12-31 14:00 [facility] <=10 (missing) (missing) NITROFURANTOIN 2024-12-31 14:00 [facility] <=16 (missing) (missing) AMPICILLIN/SULBAC PINEDA 2024-12-31 14:00 [facility] <=2 (missing) (missing) AMPICILLIN 2024-12-31 14:00 [facility] <=2 (missing) This organism is NEGATIVE for Extended Spectrum Beta Lactamase TRIMETHOPRIM/SULF AMETHOXAZOLE 2024-12-31 14:00 [facility] <=20 (missing) (missing) CEFAZOLIN 2024-12-31 14:00 [facility] <=4 (missing) (missing) RBC,URINE 2024-12-31 14:00 [facility] 0-5 /hpf (missing) UROBILINOGEN,URIN E 2024-12-31 14:00 [facility] 0.2 (NORMAL) e.u./dl (missing) OXACILLIN TAMMY 2024-12-31 14:00 [facility] 0.5 (missing) (missing) VANCOMYCIN 2024-12-31 14:00 [facility] 1 (missing) (missing) SPECIFIC GRAVITY,URINE 2024-12-31 14:00 [facility] 1.020 (missing) (missing) CUL, URINE 2024-12-31 14:00 [facility] 1010,000-50,000 CFU/mL (missing) (missing) WBC,URINE 2024-12-31 14:00 [facility] 11-25 /hpf (missing) LINEZOLID 2024-12-31 14:00 [facility] 2 (missing) (missing) CUL, URINE 2024-12-31 14:00 [facility] 5050,000-100,000 CFU/mL (missing) (missing) PH,URINE 2024-12-31 14:00 [facility] 6.5 ph (missing) CUL, URINE 2024-12-31 14:00 [facility] CXPCULTURE IN PROGRESS. RESULTS TO FOLLOW. (missing) (missing) O:ESCCOL 2024-12-31 14:00 [facility] ESCCOLESCHERICHIA COLIESCHERICHIA COLI (missing) (missing) SQUAMOUS EPITHELIAL CELL,UR 2024-12-31 14:00 [facility] FEW Squamous (missing) (missing) BACTERIA,URINE 2024-12-31 14:00 [facility] Few /hpf (missing) CLARITY,URINE 2024-12-31 14:00 [facility] HAZY (missing) (missing) CUL, URINE 2024-12-31 14:00 [facility] IDMICID/TAMMY COM* (missing) (missing) UR CULTURE IF IND 2024-12-31 14:00 [facility] INDICATED (missing) (missing) URINE MICROSCOPIC INDICATED? 2024-12-31 14:00 [facility] INDICATED (missing) (missing) CUL, URINE 2024-12-31 14:00 [facility] MIXED Skin Roseann Present. No further workup will be (missing) (missing) LEUKOCYTE ESTERASE, URINE 2024-12-31 14:00 [facility] MODERATE (missing) (missing) MUCUS,URINE 2024-12-31 14:00 [facility] Moderate Strands (missing) (missing) NITRITE,URINE 2024-12-31 14:00 [facility] NEGATIVE (missing) (missing) OCCULT BLOOD,URINE 2024-12-31 14:00 [facility] NEGATIVE (missing) (missing) BILIRUBIN,URINE 2024-12-31 14:00 [facility] NEGATIVE (missing) Bilirubin can be influenced by color interference. Please correlate positive results with clinical presentation GLUCOSE, URINE (UA) 2024-12-31 14:00 [facility] NEGATIVE mg/dl (missing) WBC CLUMPS,URINE 2024-12-31 14:00 [facility] PRESENT (missing) (missing) EPITHELIAL CELLS,UR 2024-12-31 14:00 [facility] RARE Renal Tubular /hpf (missing) CUL, URINE 2024-12-31 14:00 [facility] SENSISENSITIVITIES TO FOLLOW (missing) (missing) O:STAAUR 2024-12-31 14:00 [facility] STAAURSTAPHYLOCOCCUS AUREUSSTAPHYLOCOCCUS AUREUS (missing) (missing) KETONES,URINE (UA) 2024-12-31 14:00 [facility] T mg/dl (missing) PROTEIN,URINE 2024-12-31 14:00 [facility] TRACE mg/dl (missing) CUL, URINE 2024-12-31 14:00 [facility] UCC.6COLONY COUNT (missing) (missing) COLOR,URINE 2024-12-31 14:00 [facility] YELLOW (missing) URINE RANDOM CUL, URINE 2024-12-31 14:00 [facility] performed on these organisms. (missing) (missing) Result panel 2 NUCLEATED RED BLOOD CELLS AUTO 2025-02-24 21:46 [facility] 0.0 /100wbc (missing) BASOPHILS # (AUTO) 2025-02-24 21:46 [facility] 0.0 10 3/ul (missing) NRBC ABSOLUTE COUNT (AUTO) 2025-02-24 21:46 [facility] 0.00 x10 3/ul (missing) EOSINOPHILS # (AUTO) 2025-02-24 21:46 [facility] 0.1 10 3/ul (missing) MONOCYTES # (AUTO) 2025-02-24 21:46 [facility] 0.4 10 3/ul (missing) BILIRUBIN,TOTAL 2025-02-24 21:46 [facility] 0.5 mg/dl As of November 2022 testing method has changed, this may include reference ranges. CREATININE 2025-02-24 21:46 [facility] 0.8 mg/dl As of November 2022 testing method has changed, this may include reference ranges. ALBUMIN/GLOBULIN RATIO 2025-02-24 21:46 [facility] 1.6 (missing) (missing) LYMPHOCYTES # (AUTO) 2025-02-24 21:46 [facility] 1.9 10 3/ul (missing) MEAN PLATELET VOLUME 2025-02-24 21:46 [facility] 10.4 fl (missing) CHLORIDE 2025-02-24 21:46 [facility] 105 mmol/l As of November 2022 testing method has changed, this may include reference ranges. HGB - HEMOGLOBIN 2025-02-24 21:46 [facility] 12.9 g/dl (missing) RED CELL DISTRIBUTION WIDTH 2025-02-24 21:46 [facility] 13.6 % (missing) SODIUM 2025-02-24 21:46 [facility] 140 mmol/l (missing) PLT - PLATELET COUNT 2025-02-24 21:46 [facility] 163 10 3/ul (missing) ALT ALANINE AMINOTRANSFERASE 2025-02-24 21:46 [facility] 18 iu/l As of November 2022 testing method has changed, this may include reference ranges. GLOBULIN 2025-02-24 21:46 [facility] 2.8 g/dl (missing) AST ASPARTATE AMINOTRANSFERASE 2025-02-24 21:46 [facility] 21 iu/l As of November 2022 testing method has changed, this may include reference ranges. BUN - BLOOD UREA NITROGEN 2025-02-24 21:46 [facility] 22 mg/dl As of November 2022 testing method has changed, this may include reference ranges. CARBON DIOXIDE - CO2 2025-02-24 21:46 [facility] 27 mmol/l As of November 2022 testing method has changed, this may include reference ranges. POTASSIUM 2025-02-24 21:46 [facility] 3.9 mmol/l As of November 2022 testing method has changed, this may include reference ranges. MEAN CORPUSCULAR HEMOGLOBIN 2025-02-24 21:46 [facility] 30.8 pg (missing) MEAN CORPUSCULAR HGB CONC 2025-02-24 21:46 [facility] 32.4 g/dl (missing) HCT - HEMATOCRIT 2025-02-24 21:46 [facility] 39.8 % (missing) NEUTROPHILS # (AUTO) 2025-02-24 21:46 [facility] 4.0 10 3/ul (missing) RED BLOOD COUNT 2025-02-24 21:46 [facility] 4.19 10 6/ul (missing) ALBUMIN 2025-02-24 21:46 [facility] 4.5 g/dl As of November 2022 testing method has changed, this may include reference ranges. ALKALINE PHOSPHATASE 2025-02-24 21:46 [facility] 49 iu/l As of November 2022 testing method has changed, this may include reference ranges. WHITE BLOOD COUNT 2025-02-24 21:46 [facility] 6.5 x10 3/ul (missing) GFR - MDRD 2025-02-24 21:46 [facility] 68 (missing) The IDMS-traceable MDRD Study Equation has been validated extensively in and populations between the ages of 18 and 70 with impaired kidney function (eGFR < 60 mL/min/1.73m2) and has shown good performance for patients with all common causes of kidney disease. Although this equation has not been validated for patients older than 70, an MDRD-derived eGFR may still be a useful tool for providers caring for patients older than 70. References: http://www.nkdep. nih.gov/lab-evalu ation/gfr/creatin ine-stand ardization, last updated July 2011. TOTAL PROTEIN 2025-02-24 21:46 [facility] 7.3 g/dl As of November 2022 testing method has changed, this may include reference ranges. ANION GAP 2025-02-24 21:46 [facility] 8.0 (missing) (missing) CALCIUM 2025-02-24 21:46 [facility] 9.9 mg/dl As of November 2022 testing method has changed, this may include reference ranges. MEAN CORPUSCULAR VOLUME 2025-02-24 21:46 [facility] 95.0 fl (missing) GLUCOSE 2025-02-24 21:46 [facility] 99 mg/dl As of November 2022 testing method has changed, this may include reference ranges. Social History date description facility
--- NOTE | 2025-02-24 22:57 | HISTORY & PHYSICAL EXAMINATION ---
Chief Complaint Chief Complaint Chief Complaint: hip pain History of Present Illness Admitted From Admitted From:: Home via EMS History Obtained From Records Reviewed: yes History obtained from: ED physician and spouse Exam Limitations: telemedicine, patient sedated History of Present Illness HPI Comment/Other: Mrs. Lugo is an 84yoF with a history of dementia and atrial fibrillation. She presented with hip pain after a fall. was at bedside and provided history. Fall was ground level and mechanical . She did not hit her head or loose consciousness. She landed on her right side adn was unable to stand or bare weight. In the ED workup revealed right femoral neck fracture. Case was discussed with ED physician [place] and patient will be admitted for further management. This visit was performed using telehealth tools, including phone and live- video. patient provided verbal consent to complete this telemedicine encounter. During the time my interview and evaluation, the patient was located at [facility] in the [facility], I was located in [place]. Review of Systems Status of ROS: 10 or more systems reviewed and unremarkable except as noted in history and below PFSH Active Problems All Active Problems (Updated 02/24/25 @ 22:29 by Afshin Gallardo MD) Fracture of femoral neck, right (Acute) Venous stasis of lower extremity (Chronic) Headache (Chronic) Left knee pain (Chronic) Vulvovaginal pain (Acute) Vaginitis (Acute) Cystitis (Acute) Dysuria (Acute) Caregiver reluctant to provide care (Chronic) Prediabetes (Chronic) Dyslipidemia (Chronic) Osteopenia (Chronic) History of bariatric surgery (Chronic) ESPINOZA (obstructive sleep apnea) (Chronic) Impairment of balance (Chronic) Glaucoma (Chronic) Paroxysmal atrial fibrillation (Chronic) Chronic thoracic back pain (Chronic) History of acoustic neuroma (Chronic) Migraine headache without aura (Chronic) Complaint of fatigable weakness (Acute) Alzheimer's dementia (Chronic) Medical History Medical History Urinary tract infection Dyspnea Surgical History Surgical History Partial traumatic transphalangeal amputation of thumb Hx of hemorrhoidectomy History of hysterectomy (~1978) History of carpal tunnel release S/P knee replacement (~2008) Right History of cholecystectomy (~1984) Status post stereotactic radiosurgery (~2010) L acoustic neuroma History of sleeve gastrectomy (~2018) with hiatal hernia repair Family History Family History Sister Alzheimers disease Father CAD (coronary artery disease) Heart attack Alcoholism Social History Social History (Updated 12/31/24 @ 06:53 by ARLENE Ngo, MSN) Smoking Status: Never smoker Do you dip or chew tobacco?: No Living arrangement: At home Marital Status: Living Condition: With spouse/s.o. 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 Patient has POLST: Yes POLST CPR Status: Do Not Attempt Resuscitation (DNAR) / Allow Natural Meds/Allgy Home Medications Ambulatory Orders Medication Instructions Recorded Confirmed latanoprost 0.005 % eye drops 1 drp ophthalmic (eye) O NCE 02/23/24 01/27/25 timolol 0.5 % eye drops 1 drp ophthalmic (eye) QDAY 02/23/24 01/27/25 acetaminophen 500 mg tablet 500 - 1,000 mg PO Q6H PRN pain 10/05/24 01/27/25 loperamide 2 mg tablet 2 mg PO Q6H PRN loose stool 10/05/24 01/27/25 calcium 300 mg-D3 20 mcg-magnesium 1 tab PO BID #30 ta bs 10/26/24 01/27/25 25 mg-coppr 0.5 [id number] tablet cholecalciferol (vitamin D3) 50 50 mcg PO QDAY #30 cap s 10/26/24 01/27/25 mcg (2,000 unit) capsule zinc oxide-cod liver oil 40 % 1 applic topical 5XD 10 days #113 11/07/24 01/27/25 topical paste (Desitin) grams memantine 10 mg tablet (Namenda) 10 mg PO BID 12/07/24 01/27/25 dorzolamide 2 % eye drops 1 drp ophthalmic (eye) BID 0 12/31/24 01/27/25 oxycodone 5 mg tablet 2.5 - 5 mg (0.5 - 1 x 5 mg) PO 01/27/25 01/27/25 Q4-6H PRN pain #60 tabs sertraline 25 mg tablet 25 mg PO QDAY #30 tabs 01/2701/27/25 Allergies Allergies Allergy/AdvReac Type Severity Reaction Status Date / Time No Known Drug Allergies Allergy Verified 02/24/25 21:59 Exam Exam Vital Signs: Vital Signs x48h Temp Pulse Resp BP Pulse Ox 02/24/25 21:43 36.5 C 02/24/25 21:39 73 20 156/94 H 98 Examination as recorded is based on patient and staff reported information as well as peripheral observation. Constitutional no apparent distress and no limitations (sedated) HENMT normocephalic and head/scalp atraumatic Respiratory normal respiratory effort Cardiovascular normal heart rate noted Extremities abnormal ROM noted and deformity noted right lower extremity, shortened and rotated. Conclusion/Plan Problem List (1) Fracture of femoral neck, right: Plan: xray reviewed: right hip fracture noted -orthopedic consulted, will see in AM -npo for anticipated procedure -pain mangement: morphine 2mg q4h , toradol 15mg q12 prn for inflammation, monitor for adverse side effects -strict bed rest -neurovascular checks of right lower extremity Qualifiers: Encounter type: initial encounter Fracture type: closed Qualified Code(s): S72.001A - Fracture of unspecified part of neck of right femur, initial encounter for closed fracture (2) ESPINOZA (obstructive sleep apnea): Plan: resume home cpap or nasal canula at bedtime (3) Paroxysmal atrial fibrillation: Plan: home medication reviewed -rate controlled, not on anticoagulation -monitor with telemetry Lab Results Lab results reviewed: Yes 02/24/25 21:46 02/24/25 21:46 Diagnostic Imaging Results Diagnostic Imaging Results: positive Final report reviewed Core Measures Anticipated LOS I expect patient to be DC'd or transferred within 96 hours.: Yes DVT/VTE - Prophylaxis VTE/DVT Device ordered at admit?: Yes Telemedicine Consult Details Provider Location & Consult Time Telemedicine consultation conducted via videoconferencing?: Yes
[2025-02-25] MEDS ORDERED: SODIUM CHLORIDE FLUSH 0.9% 10 ML SYRINGE IVP PRN ×2 (00:06→16:38)
[2025-02-25] MEDS ORDERED: ONDANSETRON ODT 4 MG TABLET TL PRN (00:06)
[2025-02-25] MEDS: MORPHINE 2 MG/ML CARPUJECT IVP PRN ×2 (00:24→03:10)
[2025-02-25] MEDS: ONDANSETRON 4 MG/2 ML VIAL IVP PRN (00:28)
[2025-02-25] MEDS: SODIUM CHLORIDE FLUSH 0.9% 10 ML SYRINGE IVP SCH ×2 (00:30→17:24)
[2025-02-25] MEDS: SODIUM CHLORIDE 0.9% 1,000 ML IV SCH (00:38)
[2025-02-25] MEDS: KETOROLAC 15 MG/ML VIAL IVP STA (02:01)
[2025-02-25] MEDS: ACETAMINOPHEN 1,000 MG/100 ML 1,000 MG/100 ML BAG IV ONE (02:44)
[2025-02-25] MEDS: OLANZapine 10 MG VIAL IM ONE (02:45)
[2025-02-25 06:35] LABS: HCT - HEMATOCRIT 35.3 % (37.0-47.0); HGB - HEMOGLOBIN 11.3 g/dL (12.0-16.0); MEAN PLATELET VOLUME 10.4 fL (7.9-10.8); NRBC ABSOLUTE COUNT (AUTO) 0.00 x10^3/uL; NUCLEATED RED BLOOD CELLS AUTO 0.0 /100WBC; PLT - PLATELET COUNT 141 10^3/uL (130-450); RED CELL DISTRIBUTION WIDTH 13.5 % (12.0-15.0)
[2025-02-25 06:51] LABS: BUN - BLOOD UREA NITROGEN 21.0 mg/dL (6-20); CARBON DIOXIDE - CO2 27.0 mmol/L (21-32); CREATININE 0.7 mg/dL (0.6-1.3); GFR - MDRD 80.0 (>89)
--- NOTE | 2025-02-25 07:43 | PROVIDER PROGRESS NOTE ---
Subjective Prog Note Date Prog Note Date: 02/25/25 Prog Note Time: 07:39 Subjective Subjective: Patient was admitted overnight. She had a mechanical ground-level fall without head strike landing on her right side with subsequent right femoral fracture. She is anticipated for surgery today. Patient is n.p.o. overnight. Pain reasonably well-controlled. She received a dose of Toradol 15 mg last night. In addition she received 2 pushes of IV morphine 2 mg. This has reasonably controlled her pain. Was administered 5 mg IM olanzapine at 2 AM for unclear reasons. 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 Vital signs stable this morning. She has remained afebrile. Hemoglobin 11.3 preoperatively. Creatinine 0.7. She is seen postoperatively. Recovering well. She had 100 cc of estimated blood loss during her procedure per my conversation with Ortho. He is cleared her for weightbearing as tolerated. Current Medications Current Medications Current Medications: Current Medications Generic Name Dose Route Start Last Admin Trade Name Freq PRN Reason Stop Dose Admin Acetaminophen 650 mg 02/25/25 00:06 Acetaminophen 325 Mg Tablet PO Q4HR PRN Pain 1 to 4, or Fever Dorzolamide HCl 1 drops 02/25/25 09:00 Dorzolamide 2% Ophth Drops EACHEYE BID MACHELLE Sodium Chloride 1,000 mls @ 50 mls/hr 02/25/25 00:06 02/25/25 02:59 Normal Saline 0.9% IV 50 mls/hr .Q20H MACHELLE Infusion Latanoprost 1 drops 02/25/25 09:00 Latanoprost 0.005% Ophth Drops EACHEYE DAILY [facility] Morphine Sulfate 2 mg 02/25/25 02:31 02/25/25 03:10 Morphine 2 Mg/Ml Carpuject IVP 2 mg Q2HR PRN Administration Pain 8 to 10 Non-Formulary Medication 1 drops 02/25/25 09:00 Timolol OP DAILY MACHELLE Ondansetron HCl 4 mg 02/25/25 00:06 02/25/25 00:28 Ondansetron 4 Mg/2 Ml Vial IVP 4 mg Q6HR PRN Administration Nausea / Vomiting Ondansetron HCl 4 mg 02/25/25 00:06 Ondansetron Odt 4 Mg Tablet TL Q6HR PRN Nausea / Vomiting Sodium Chloride 10 ml 02/25/25 00:06 Sodium Chloride Flush 0.9% 10 Ml Syringe IVP PRN PRN NEEDED PER PROVIDER ORDERS Sodium Chloride 10 ml 02/25/25 01:00 02/25/25 00:30 Sodium Chloride Flush 0.9% 10 Ml Syringe IVP 10 ml 0100,0900,1700 MACHELLE Administration Objective Vital Signs/Intake & Output Vital Signs: Vital Signs x48h Temp Pulse Resp BP BP Pulse Ox O2 Flow Rate 02/25/25 05:00 36.6 C 73 16 109/54 L 96 1 02/25/25 00:36 1 02/25/25 00:06 36.6 C 76 16 161/88 H 95 Intake & Output: Intake & Output 02/22/25 02/23/25 02/24/25 02/25/25 23:59 23:59 23:59 23:59 Intake Total 205 / 205 Output Total 925 / 925 Balance -720 / -720 Weight (kg) 88.451 kg 83 kg Objective Comments/Other: GEN: No acute distress HEENT: NC/AT, normal appearance of external ears and nose. Hearing baseline. Cardiac: Regular rate and rhythm, no murmurs. Euvolemic generally. Pulm: Lungs CTA bilaterally, no cough, no wheezes. Abdomen: Soft, nontender, nondistended. No rebound or guarding Extremities: Shortened and internally rotated right leg. Neuro: Face symmetric, CN II through XII intact grossly. Gait exam deferred Psych: Pleasantly demented. Somnolent this morning. Somnolent postoperatively as well. Lab Results 02/25/25 06:28 02/25/25 06:28 Other Labs: Lab Results x24hrs 02/25/25 02/24/25 Range/Units 06:28 21:46 WBC 8.8 6.5 (4.8-10.8) x10^3/uL RBC 3.70 L 4.19 L (4.20-5.40) 10^6/uL Hgb 11.3 L 12.9 (12.0-16.0) g/dL Hct 35.3 L 39.8 (37.0-47.0) % MCV 95.4 95.0 (81.0-99.0) fL MCH 30.5 30.8 (27.0-31.0) pg MCHC 32.0 32.4 (32.0-36.0) g/dL RDW 13.5 13.6 (12.0-15.0) % Plt Count 141 163 (130-450) 10^3/uL MPV 10.4 10.4 (7.9-10.8) fL Neut # (Auto) 7.5 H 4.0 (1.5-6.6) 10^3/uL Lymph # (Auto) 0.8 L 1.9 (1.5-3.5) 10^3/uL Nye # (Auto) 0.5 0.4 (0.0-1.0) 10^3/uL Eos # (Auto) 0.0 0.1 (0.0-0.7) 10^3/uL Baso # (Auto) 0.0 0.0 (0.0-0.1) 10^3/uL Absolute Nucleated RBC 0.00 0.00 x10^3/uL Nucleated RBC % 0.0 0.0 /100WBC Sodium 139 140 (135-145) mmol/L Potassium 3.8 3.9 (3.5-4.5) mmol/L Chloride 107 105 (101-111) mmol/L Carbon Dioxide 27 27 (21-32) mmol/L Anion Gap 5.0 L 8.0 (6-13) BUN 21 H 22 H (6-20) mg/dL Creatinine 0.7 0.8 (0.6-1.3) mg/dL Estimated GFR (MDRD) 80 L 68 L (>89) Glucose 132 H 99 (74-104) mg/dL Calcium 8.5 9.9 (8.5-10.3) mg/dL Total Bilirubin 0.5 (0.2-1.0) mg/dL AST 21 (10-42) IU/L ALT 18 (10-60) IU/L Alkaline Phosphatase 49 (42-121) IU/L Total Protein 7.3 (6.4-8.9) g/dL Albumin 4.5 (3.2-5.5) g/dL Globulin 2.8 (2.1-4.2) g/dL Albumin/Globulin Ratio 1.6 (1.0-2.2) Diagnostic Imaging Diagnostic Imaging Results: positive Final report reviewed and Read independently Assessment/Plan Problem List (1) Fracture of femoral neck, right: Impression: Patient presented with a right femoral neck fracture that was displaced. She had a mechanical ground-level fall prior to arrival. She was taken to the OR on 02/25 where she had a right Hemiprosthesis. Surgery apparently went well. Minimal blood loss. Estimated 100 cc. Patient's pain is resolved following procedure. She has not needed any pain medications since she is back from the OR. - Continue as needed Tylenol - Dressing CDI this afternoon - CBC a.m. - Will give blood if hemodynamically unstable - Discharge with ASA 162 mg daily for VTE prophylaxis - PT to evaluate tomorrow for dispo planning Qualifiers: Encounter type: initial encounter Fracture type: closed Qualified Code(s): S72.001A - Fracture of unspecified part of neck of right femur, initial encounter for closed fracture (2) Alzheimer's dementia: Impression: Patient with known history of Alzheimer's dementia. She relies on her who is her caregiver extensively. They are considering moving into assisted living as she cannot ambulate around their home as she has become more debilitated. She is still feeding herself. Does not have any special dietary needs. She is intermittently aware of her dementia, oriented to self and roughly month. She knows the season most of the time. She is needing to be reoriented that she is in the hospital. - Reasonable to continue Namenda for now - Delirium precautions, should maintain normal sleep-wake cycles - Scheduled melatonin at 1900 to promote evening sleep - Olanzapine ODT available for last resort if agitated - Avoid benzodiazepines as they prolong delirium and increased mortality in her demographic Qualifiers: Alzheimer's disease onset: unspecified onset Dementia severity: m oderate Dementia behavioral or psychological symptom: unspecified whether behavioral, psychotic, or mood disturbance or anxiety Qualified Code(s): G30.9 - Alzheimer's disease, unspecified; F02.B0 - Dementia in other diseases classified elsewhere, moderate, without behavioral disturbance, psychotic disturbance, mood disturbance, and anxiety (3) ESPINOZA (obstructive sleep apnea): Impression: Known history. - Order in place, patient can use home CPAP machine. (4) Paroxysmal atrial fibrillation: Impression: Known history. Patient is not on any anticoagulation given her goals of care and deprescribing. Also not on rate control. She is in sinus rhythm. (5) Urinary retention: Impression: Patient with acute urinary retention following surgery. She has a Perdomo in place still. - Trial of void tomorrow
[2025-02-25] MEDS: TIMOLOL 0.5% OPHTH DROPS EACHEYE SCH (08:34)
[2025-02-25] MEDS: DORZOLAMIDE 2% OPHTH DROPS EACHEYE SCH (08:34)
--- NOTE | 2025-02-25 09:29 | ANESTHESIA PROCEDURE NOTE ---
Pre-Anesthesia VS, & Labs Diagnosis Surgical Diagnosis:: R hip fx Procedure Procedure: R gabbie-hip arthroplasty Vitals Vital Signs: Temp Pulse Resp BP Pulse Ox O2 Flow Rate 36.7 C 78 16 109/51 L 95 1 02/25/25 07:42 02/25/25 07:42 02/25/25 07:42 02/25/25 07:42 02/25/25 07:42 02/25/25 07:45 NPO NPO: >8 hours Is Patient ?: No Lab Results Current Lab Results: Laboratory Tests 02/25/25 06:28: WBC 8.8, RBC 3.70 L, Hgb 11.3 L, Hct 35.3 L, MCV 95.4, MCH 30.5, MCHC 32.0, RDW 13.5, Plt Count 141, MPV 10.4, Neut # (Auto) 7.5 H, Lymph # (Auto) 0.8 L, Loving # (Auto) 0.5, Eos # (Auto) 0.0, Baso # (Auto) 0.0, Absolute Nucleated RBC 0.00, Nucleated RBC % 0.0, Sodium 139, Potassium 3.8, Chloride 107, Carbon Dioxide 27, Anion Gap 5.0 L, BUN 21 H, Creatinine 0.7, Estimated GFR (MDRD) 80 L, Glucose 132 H, Calcium 8.5 02/24/25 21:46: WBC 6.5, RBC 4.19 L, Hgb 12.9, Hct 39.8, MCV 95.0, MCH 30.8, MCHC 32.4, RDW 13.6, Plt Count 163, MPV 10.4, Neut # (Auto) 4.0, Lymph # (Auto) 1.9, Loving # (Auto) 0.4, Eos # (Auto) 0.1, Baso # (Auto) 0.0, Absolute Nucleated RBC 0.00, Nucleated RBC % 0.0, Sodium 140, Potassium 3.9, Chloride 105, Carbon Dioxide 27, Anion Gap 8.0, BUN 22 H, Creatinine 0.8, Estimated GFR (MDRD) 68 L, Glucose 99, Calcium 9.9, Total Bilirubin 0.5, AST 21, ALT 18, Alkaline Phosphatase 49, Total Protein 7.3, Albumin 4.5, Globulin 2.8, Albumin/Globulin Ratio 1.6 Lab results reviewed: Yes 02/25/25 06:28 02/25/25 06:28 Meds/Allgy Home Medications Ambulatory Orders Medication Instructions Recorded Confirmed latanoprost 0.005 % eye drops 1 drp ophthalmic (eye) O NCE 02/23/24 01/27/25 acetaminophen 500 mg tablet 500 - 1,000 mg PO Q6H PRN pain 10/05/24 01/27/25 loperamide 2 mg tablet 2 mg PO Q6H PRN loose stool 10/05/24 01/27/25 calcium 300 mg-D3 20 mcg-magnesium 1 tab PO BID #30 ta bs 10/26/24 01/27/25 25 mg-coppr 0.5 [id number] tablet cholecalciferol (vitamin D3) 50 50 mcg PO QDAY #30 cap s 10/26/24 01/27/25 mcg (2,000 unit) capsule zinc oxide-cod liver oil 40 % 1 applic topical 5XD 10 days #113 11/07/24 01/27/25 topical paste (Desitin) grams memantine 10 mg tablet (Namenda) 10 mg PO BID 12/07/24 01/27/25 dorzolamide 2 % eye drops 1 drp ophthalmic (eye) BID 0 12/31/24 01/27/25 oxycodone 5 mg tablet 2.5 - 5 mg (0.5 - 1 x 5 mg) PO 01/27/25 01/27/25 Q4-6H PRN pain #60 tabs sertraline 25 mg tablet 25 mg PO QDAY #30 tabs 01/2701/27/25 timolol maleate 0.5 % eye drops drp 02/25/25 Allergies Allergies Allergy/AdvReac Type Severity Reaction Status Date / Time No Known Drug Allergies Allergy Verified 02/24/25 21:59 PFSH Active Problems All Active Problems Fracture of femoral neck, right (Acute) Venous stasis of lower extremity (Chronic) Headache (Chronic) Left knee pain (Chronic) Vulvovaginal pain (Acute) Vaginitis (Acute) Cystitis (Acute) Dysuria (Acute) Caregiver reluctant to provide care (Chronic) Prediabetes (Chronic) Dyslipidemia (Chronic) Osteopenia (Chronic) History of bariatric surgery (Chronic) ESPINOZA (obstructive sleep apnea) (Chronic) Impairment of balance (Chronic) Glaucoma (Chronic) Paroxysmal atrial fibrillation (Chronic) Chronic thoracic back pain (Chronic) History of acoustic neuroma (Chronic) Migraine headache without aura (Chronic) Complaint of fatigable weakness (Acute) Alzheimer's dementia (Chronic) Medical History Medical History Urinary tract infection Dyspnea Surgical History Surgical History Partial traumatic transphalangeal amputation of thumb Hx of hemorrhoidectomy History of hysterectomy (~1978) History of carpal tunnel release S/P knee replacement (~2008) Right History of cholecystectomy (~1984) Status post stereotactic radiosurgery (~2010) L acoustic neuroma History of sleeve gastrectomy (~2017) with hiatal hernia repair Family History Family History Sister Alzheimers disease Father CAD (coronary artery disease) Heart attack Alcoholism Social History Social History (Updated 12/31/24 @ 06:53 by ARLENE Ngo, MSN) Smoking Status: Never smoker Second hand tobacco smoke exposure: No Do you dip or chew tobacco?: No Do you vape?: No Patient requests smoking cessation consult: No Initiate information on smoking cessation: No Living arrangement: At home Marital Status: Living Condition: With spouse/s.o. 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 Patient has POLST: Yes POLST CPR Status: Do Not Attempt Resuscitation (DNAR) / Allow Natural Anesthesia Exam (Expanded) Exam Cardiovascular: Regular rate and Other (hx AF, currently NSR, no anticoags) Cognitive Status: Dementia (confision with day, place, procedure) Exam Exam Vital Signs: Vital Signs x48h Temp Pulse Resp BP Pulse Ox O2 Flow Rate 02/25/25 07:45 1 02/25/25 07:42 36.7 C 78 16 109/51 L 95 02/25/25 05:00 36.6 C 73 16 109/54 L 96 1 Plan Problem List (1) Fracture of femoral neck, right: Plan: xray reviewed: right hip fracture noted -orthopedic consulted, will see in AM -npo for anticipated procedure -pain mangement: morphine 2mg q4h , toradol 15mg q12 prn for inflammation, monitor for adverse side effects -strict bed rest -neurovascular checks of right lower extremity Qualifiers: Encounter type: initial encounter Fracture type: closed Qualified Code(s): S72.001A - Fracture of unspecified part of neck of right femur, initial encounter for closed fracture (2) ESPINOZA (obstructive sleep apnea): Plan: resume home cpap or nasal canula at bedtime (3) Paroxysmal atrial fibrillation: Plan: home medication reviewed -rate controlled, not on anticoagulation -monitor with telemetry Plan Anesthesia Type: General, Spinal and Fascia Iliaca Block Consent for Procedure(s) Verified and Reviewed: Yes Code Status: Attempt Resuscitation ASA Classification ASA classification: 3-Severe systemic disease Is this case an emergency?: Yes
[2025-02-25] MEDS ORDERED: fentaNYL 100 MCG/2 ML VIAL ONE ×2 (10:48→13:19)
[2025-02-25] MEDS ORDERED: BUPIVACAINE 0.25% PF 30 ML VIAL ONE (10:49)
[2025-02-25] MEDS ORDERED: MIDAZOLAM 2 MG/2 ML VIAL ONE (10:49)
[2025-02-25] MEDS ORDERED: PROPOFOL 500 MG/50 ML 500 MG/50 ML VIAL ONE (10:51)
[2025-02-25] MEDS ORDERED: SODIUM CHLORIDE 0.9% 10 ML VIAL ONE (11:12)
[2025-02-25] MEDS ORDERED: ePHEDrine 50 MG/ML VIAL IVP ONE (11:12)
[2025-02-25] MEDS ORDERED: PHENYLEPHRINE HCL 0.5 MG/5 ML AMPULE ONE (11:13)
[2025-02-25] MEDS ORDERED: BUPIVACAINE 0.5% PF 10 ML VIAL ONE (11:15)
--- NOTE | 2025-02-25 11:47 | PHARMACY PROGRESS NOTE ---
Best Possible Medication History Admit Date and Time: 02/24/25 [id number] Home Medications Medication Instructions Recorded Confirmed Type latanoprost 0.005 % eye drops 1 drp ophthalmic (eye) O NCE 02/23/24 02/25/25 History acetaminophen 500 mg tablet 500 - 1,000 mg PO Q6H PRN pain 10/05/24 02/25/25 History loperamide 2 mg tablet 2 mg PO Q6H PRN loose stool 10/05/24 02/25/25 History calcium 300 mg-D3 20 mcg-magnesium 1 tab PO BID #30 ta bs 10/26/24 02/25/25 Rx 25 mg-coppr 0.5 [id number] tablet cholecalciferol (vitamin D3) 50 50 mcg PO QDAY #30 cap s 10/26/24 02/25/25 Rx mcg (2,000 unit) capsule zinc oxide-cod liver oil 40 % 1 applic topical 5XD 10 days #113 11/07/24 02/25/25 Rx topical paste (Desitin) grams memantine 10 mg tablet (Namenda) 10 mg PO BID 12/07/24 02/25/25 History dorzolamide 2 % eye drops 1 drp ophthalmic (eye) BID 0 12/31/24 02/25/25 History oxycodone 5 mg tablet 2.5 - 5 mg (0.5 - 1 x 5 mg) PO 01/27/25 02/25/25 Rx Q4-6H PRN pain #60 tabs timolol maleate 0.5 % eye drops 1 drp ophthalmic (eye) DAILY 02/25/25 02/25/25 History Processed by: Pharmacy Medications reviewed in ED?: Yes Medication History completed: Yes Patient Interview: Completed Secondary Source(s): Insurance records [facility] Statement: As the person ultimately responsible for medication therapy, providers are able to order a medication from an existing home medication list in [facility] via the "Reconcile Routine" prior to Confirmation of that medication by community support associate. Such practice is discouraged except when the physician, in their clinical judgment, deems that a medical need exists for a medication without regard to previous use.
--- NOTE | 2025-02-25 11:51 | CONSULTATION NOTE ---
Chief Complaint Chief Complaint Chief Complaint: Right hip pain History of Present Illness History of Present Illness HPI Comment/Other: The patient presented to the emergency room last night with complaints of left hip pain. The emergency room physician diagnosed a displaced right hip femoral neck fracture and I have been consulted regarding management of the fracture. No other complaints. Meds/Allgy Home Medications Ambulatory Orders Medication Instructions Recorded Confirmed latanoprost 0.005 % eye drops 1 drp ophthalmic (eye) O NCE 02/23/24 02/25/25 acetaminophen 500 mg tablet 500 - 1,000 mg PO Q6H PRN pain 10/05/24 02/25/25 loperamide 2 mg tablet 2 mg PO Q6H PRN loose stool 10/05/24 02/25/25 calcium 300 mg-D3 20 mcg-magnesium 1 tab PO BID #30 ta bs 10/26/24 02/25/25 25 mg-coppr 0.5 ha-aqlo-mesm tablet cholecalciferol (vitamin D3) 50 50 mcg PO QDAY #30 cap s 10/26/24 02/25/25 mcg (2,000 unit) capsule zinc oxide-cod liver oil 40 % 1 applic topical 5XD 10 days #113 11/07/24 02/25/25 topical paste (Desitin) grams memantine 10 mg tablet (Namenda) 10 mg PO BID 12/07/24 02/25/25 dorzolamide 2 % eye drops 1 drp ophthalmic (eye) BID 0 12/31/24 02/25/25 oxycodone 5 mg tablet 2.5 - 5 mg (0.5 - 1 x 5 mg) PO 01/27/25 02/25/25 Q4-6H PRN pain #60 tabs timolol maleate 0.5 % eye drops 1 drp ophthalmic (eye) DAILY 02/25/25 02/25/25 Allergies Allergies Allergy/AdvReac Type Severity Reaction Status Date / Time No Known Drug Allergies Allergy Verified 02/24/25 21:59 PFSH Active Problems All Active Problems Fracture of femoral neck, right (Acute) Venous stasis of lower extremity (Chronic) Headache (Chronic) Left knee pain (Chronic) Vulvovaginal pain (Acute) Vaginitis (Acute) Cystitis (Acute) Dysuria (Acute) Caregiver reluctant to provide care (Chronic) Prediabetes (Chronic) Dyslipidemia (Chronic) Osteopenia (Chronic) History of bariatric surgery (Chronic) ESPINOZA (obstructive sleep apnea) (Chronic) Impairment of balance (Chronic) Glaucoma (Chronic) Paroxysmal atrial fibrillation (Chronic) Chronic thoracic back pain (Chronic) History of acoustic neuroma (Chronic) Migraine headache without aura (Chronic) Complaint of fatigable weakness (Acute) Alzheimer's dementia (Chronic) Medical History Medical History Urinary tract infection Dyspnea Surgical History Surgical History Partial traumatic transphalangeal amputation of thumb Hx of hemorrhoidectomy History of hysterectomy (~1978) History of carpal tunnel release S/P knee replacement (~2008) Right History of cholecystectomy (~1984) Status post stereotactic radiosurgery (~2010) L acoustic neuroma History of sleeve gastrectomy (~2017) with hiatal hernia repair Family History Family History Sister Alzheimers disease Father CAD (coronary artery disease) Heart attack Alcoholism Social History Social History (Updated 12/31/24 @ 06:53 by ARLENE Ngo, MSN) Smoking Status: Never smoker Second hand tobacco smoke exposure: No Do you dip or chew tobacco?: No Do you vape?: No Patient requests smoking cessation consult: No Initiate information on smoking cessation: No Living arrangement: At home Marital Status: Living Condition: With spouse/s.o. 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 POLST Patient has POLST: Yes POLST CPR Status: Do Not Attempt Resuscitation (DNAR) / Allow Natural Results Lab Results Lab results reviewed: Yes 02/25/25 06:28 02/25/25 06:28 Other Lab Results: Lab Results x24hrs 02/25/25 02/24/25 Range/Units 06:28 21:46 WBC 8.8 6.5 (4.8-10.8) x10^3/uL RBC 3.70 L 4.19 L (4.20-5.40) 10^6/uL Hgb 11.3 L 12.9 (12.0-16.0) g/dL Hct 35.3 L 39.8 (37.0-47.0) % MCV 95.4 95.0 (81.0-99.0) fL MCH 30.5 30.8 (27.0-31.0) pg MCHC 32.0 32.4 (32.0-36.0) g/dL RDW 13.5 13.6 (12.0-15.0) % Plt Count 141 163 (130-450) 10^3/uL MPV 10.4 10.4 (7.9-10.8) fL Neut # (Auto) 7.5 H 4.0 (1.5-6.6) 10^3/uL Lymph # (Auto) 0.8 L 1.9 (1.5-3.5) 10^3/uL [place] # (Auto) 0.5 0.4 (0.0-1.0) 10^3/uL Eos # (Auto) 0.0 0.1 (0.0-0.7) 10^3/uL Baso # (Auto) 0.0 0.0 (0.0-0.1) 10^3/uL Absolute Nucleated RBC 0.00 0.00 x10^3/uL Nucleated RBC % 0.0 0.0 /100WBC Sodium 139 140 (135-145) mmol/L Potassium 3.8 3.9 (3.5-4.5) mmol/L Chloride 107 105 (101-111) mmol/L Carbon Dioxide 27 27 (21-32) mmol/L Anion Gap 5.0 L 8.0 (6-13) BUN 21 H 22 H (6-20) mg/dL Creatinine 0.7 0.8 (0.6-1.3) mg/dL Estimated GFR (MDRD) 80 L 68 L (>89) Glucose 132 H 99 (74-104) mg/dL Calcium 8.5 9.9 (8.5-10.3) mg/dL Total Bilirubin 0.5 (0.2-1.0) mg/dL AST 21 (10-42) IU/L ALT 18 (10-60) IU/L Alkaline Phosphatase 49 (42-121) IU/L Total Protein 7.3 (6.4-8.9) g/dL Albumin 4.5 (3.2-5.5) g/dL Globulin 2.8 (2.1-4.2) g/dL Albumin/Globulin Ratio 1.6 (1.0-2.2) Exam Exam Vital Signs: Vital Signs x48h Temp Pulse Resp BP Pulse Ox O2 Flow Rate 02/25/25 07:45 1 02/25/25 07:42 36.7 C 78 16 109/51 L 95 02/25/25 05:00 36.6 C 73 16 109/54 L 96 1 Physical exam reveals tenderness to the right hip groin area unable to straight leg raise neurovascularly intact. Conclusion/Plan Problem List (1) Fracture of femoral neck, right: Plan: The patient clearly has a displaced right femoral neck fracture and I have recommended right hip hemiarthroplasty. Medicine has cleared the patient for surgery and we are going to do this today around lunchtime. Qualifiers: Encounter type: initial encounter Fracture type: closed Qualified Code(s): S72.001A - Fracture of unspecified part of neck of right femur, initial encounter for closed fracture (2) ESPINOZA (obstructive sleep apnea): (3) Paroxysmal atrial fibrillation: Lab Results Lab results reviewed: Yes 02/25/25 06:28 02/25/25 06:28
[2025-02-25] MEDS ORDERED: DEXAMETHASONE 4 MG/ML VIAL ONE (12:34)
[2025-02-25] MEDS ORDERED: ONDANSETRON 4 MG/2 ML VIAL ONE (12:34)
[2025-02-25] MEDS ORDERED: METOCLOPRAMIDE 10 MG/2 ML VIAL IVP PRN (12:40)
[2025-02-25] MEDS ORDERED: NALOXONE 0.4 MG/ML VIAL IVP PRN (12:40)
[2025-02-25] MEDS ORDERED: ONDANSETRON 4 MG/2 ML VIAL IVP PRN (12:40)
[2025-02-25] MEDS ORDERED: ePHEDrine 50 MG/ML VIAL IVP PRN (12:40)
[2025-02-25] MEDS ORDERED: MORPHINE 2 MG/ML CARPUJECT IVP PRN (12:40)
[2025-02-25] MEDS ORDERED: fentaNYL 100 MCG/2 ML VIAL IVP PRN (12:40)
[2025-02-25] MEDS ORDERED: HYDROmorphone 0.5 MG/0.5 ML SYRINGE IVP PRN (12:40)
[2025-02-25] MEDS ORDERED: ATROPINE ABBOJECT 1 MG/10 ML SYRINGE IVP PRN (12:40)
--- NOTE | 2025-02-25 13:31 | OPERATIVE REPORT ---
Operative Report General Admit Date: 02/24/25 Procedure Data: Operation Date: 02/25/25 11:30 Proposed Procedures p Hip Hemiprosthesis(Right) - Patrick Yarbrough DO Actual Procedures p Hip Hemiprosthesis(Right) - Patrick Yarbrough DO Pre-Op Diagnosis: DISPLACED RIGHT FEMORAL NECK FRACTURE Anesthesia Type Spinal Case Staff Anesthesia Provider: Eric Patiño Rep: ZAY RICHARDSON - THOM BIOMET.. Case Times Procedure Start: 02/25/25 12:32 Time out: 02/25/25 12:31 Implants STEM FEM TAPERLOC [id number] TAPER HEAD COCR 28MM -6 [id number] Pre-Op Diagnosis: Right hip femoral neck fracture Post Op Diagnosis: Right hip femoral neck fracture Procedure Note Estimated Blood Loss (ml): 100 Indications: Right hip femoral neck fracture Complications: None Other Other Information/Narrative: The patient was taken to the operative suite and after undergoing a spinal anesthetic with sedation she was placed onto the pegboard operating table with the right hip exposed. The right hip was prepped and draped in the usual sterile fashion approximately 15 cm incision was made over the right hip and dissection was taken down to the tensor fascia darrell this was incised longitudinally and the Charnley was put in place we then identified the gluteus medius and minimus and we elevated the anterior two thirds off of its insertion site on the greater troches. At this time we could easily gain access into the joint and we could see the fracture we put the leg in the leg bag and freshened up our femoral neck cut taking an additional 3 to 4 mm. We then took the leg out of the bag and proceeded to remove the femoral head with the use of the corkscrew and the skid we were able to get the femoral head out in 1 piece. We went ahead and measured it and the appropriate size was 46 mm. We went ahead and put the leg back in the bag and we first used the box osteotome then the canal finder then the lateralizer and then we did concentric broaching up until the appropriate size which was a 13. We inserted the stem and then we trialed off of the stem and the -6 neck lengths was found to be the most appropriate so we assembled the -6 neck length to the 46 mm outer head and once this was together we put it onto the prosthesis and reduced the hip. It was found to be very stable we did a thorough irrigation we then drilled 3 holes through the greater trochanteric Sukhi bone and with the use of a #5 Ethibond so the gluteus medius and minimus back down to the bone. We then oversewed it with a #1 Vicryl we then secured the tensor fascia darrell with a strata fix the subcu with a 2-0 Vicryl the skin was closed with geetha a sterile dressing was applied and the patient was awakened and transferred stable to recovery room
--- NOTE | 2025-02-25 14:23 | ANESTHESIA POST OP EVALUATION ---
Anesthesia Post Eval Post Anesthesia Eval Vitals: Last Vital Signs Temp 37.4 C 02/25/25 13:33 Pulse 79 02/25/25 14:11 Resp 14 02/25/25 14:11 BP 125/71 02/25/25 14:11 Pulse Ox 94 02/25/25 14:11 O2 Flow Rate 1 02/25/25 07:45 CV Function Including HR & BP: Stable Pain Control: Satisfactory Nausea & Vomiting: Negative Mental Status: Baseline Respiratory Status: Airway Patent Hydration Status: Satisfactory Anesthesia Complications: None
[2025-02-25] MEDS ORDERED: oxyCODONE 5 MG TABLET PO PRN (14:45)
[2025-02-25] MEDS: COD LIVER OIL/ZINC OXIDE 113 GM TUBE TOP SCH (17:24)
[2025-02-25] MEDS: MEMANTINE 5 MG TABLET PO SCH (20:15)
[2025-02-25] MEDS: MELATONIN 3 MG TABLET PO SCH (20:15)
[2025-02-25] MEDS: LATANOPROST 0.005% OPHTH DROPS EACHEYE SCH (20:17)
[2025-02-25] MEDS: LACTATED RINGERS 1,000 ML IV SCH (20:34)
[2025-02-25] MEDS ORDERED: CA CARB D3 MAG OX COP MANG ZN PO SCH (21:00)
[2025-02-25] MEDS: HYDROmorphone 0.5 MG/0.5 ML SYRINGE IVP PRN (23:53)
[2025-02-26 05:02] LABS: HCT - HEMATOCRIT 29.4 % (37.0-47.0); HGB - HEMOGLOBIN 9.3 g/dL (12.0-16.0); MEAN PLATELET VOLUME 10.5 fL (7.9-10.8); PLT - PLATELET COUNT 140.0 10^3/uL (130-450); RED CELL DISTRIBUTION WIDTH 13.8 % (12.0-15.0)
[2025-02-26 07:22] LABS: BUN - BLOOD UREA NITROGEN 18.0 mg/dL (6-20); CARBON DIOXIDE - CO2 27.0 mmol/L (21-32); CREATININE 0.6 mg/dL (0.6-1.3); GFR - MDRD 95.0 (>89)
--- NOTE | 2025-02-26 08:02 | PROVIDER PROGRESS NOTE ---
Subjective Prog Note Date Prog Note Date: 02/26/25 Prog Note Time: 08:01 Subjective Subjective: Per nursing reports, she did have much urine output overnight. She has been drinking copious amounts of water throughout the day yesterday. Her fluids were stopped late in the day yesterday. Clinically she is otherwise doing well. Her blood pressure is stable. She is not tachycardic. Her hemoglobin dropped slightly this morning to 9.3 from 11.3 preoperatively. Again hemodynamically stable. She is resting comfortably this morning. She wakes easily to voice. Stable mental status in setting of her dementia. No other acute concerns. She states her pain is well-controlled. She did not require any opiates throughout the afternoon yesterday. She then received 2 pushes of Dilaudid and morphine overnight. It is not clear that any oral opiate option was tried or Tylenol. For unclear reasons. It does appear that Tylenol was intermittently discontinued on transfer from the OR. It was resumed last night, but she did not receive any. Current Medications Current Medications Current Medications: Current Medications Generic Name Dose Route Start Last Admin Trade Name Freq PRN Reason Stop Dose Admin Acetaminophen 650 mg 02/25/25 00:06 Acetaminophen 325 Mg Tablet PO Q4HR PRN Pain 1 to 4, or Fever Cholecalciferol 50 mcg 02/26/25 09:00 Cholecalciferol 25 Mcg Tablet PO DAILY MACHELLE Dorzolamide HCl 1 drops 02/25/25 09:00 02/25/25 20:19 Dorzolamide 2% Ophth Drops EACHEYE 1 drops BID MACHELLE Administration Hydromorphone HCl 0.5 mg 02/25/25 21:58 02/26/25 04:39 Hydromorphone 0.5 Mg/0.5 Ml Syringe IVP 0.5 mg Q2H PRN Administration Severe Pain (Level 7-10) Latanoprost 1 drops 02/25/25 21:00 02/25/25 20:17 Latanoprost 0.005% Ophth Drops EACHEYE 1 drops QPM MACHELLE Administration Melatonin 3 mg 02/25/25 19:00 02/25/25 20:15 Melatonin 3 Mg Tablet PO 3 mg Q24H MACHELLE Administration Memantine 10 mg 02/25/25 21:00 02/25/25 20:15 Memantine 5 Mg Tablet PO 10 mg BID MACHELLE Administration Olanzapine 5 mg 02/25/25 16:45 02/25/25 22:06 Olanzapine Odt 5 Mg Tablet TL 5 mg BID PRN Administration Agitation Ondansetron HCl 4 mg 02/25/25 00:06 02/25/25 00:28 Ondansetron 4 Mg/2 Ml Vial IVP 4 mg Q6HR PRN Administration Nausea / Vomiting Ondansetron HCl 4 mg 02/25/25 00:06 Ondansetron Odt 4 Mg Tablet TL Q6HR PRN Nausea / Vomiting Oxycodone HCl 2.5 mg 02/25/25 14:45 Oxycodone 5 Mg Tablet PO Q4HR PRN PAIN 5-7 Sodium Chloride 10 ml 02/25/25 00:06 Sodium Chloride Flush 0.9% 10 Ml Syringe IVP PRN PRN NEEDED PER PROVIDER ORDERS Sodium Chloride 10 ml 02/25/25 01:00 02/25/25 23:53 Sodium Chloride Flush 0.9% 10 Ml Syringe IVP 10 ml 0100,0900,1700 MACHELLE Administration Sodium Chloride 10 ml 02/25/25 16:38 Sodium Chloride Flush 0.9% 10 Ml Syringe IVP PRN PRN NEEDED PER PROVIDER ORDERS Sodium Chloride 10 ml 02/25/25 17:00 02/25/25 23:53 Sodium Chloride Flush 0.9% 10 Ml Syringe IVP Not Given 0100,0900,1700 [facility] Timolol Maleate 1 drops 02/25/25 09:00 02/25/25 08:34 Timolol 0.5% Ophth Drops EACHEYE 1 drops DAILY MACHELLE Administration Zinc Oxide 2 gm 02/25/25 18:00 02/26/25 05:22 Cod Liver Oil/Zinc Oxide 113 Gm Tube TOP Not Given 5XD MACHELLE Objective Vital Signs/Intake & Output Vital Signs: Vital Signs x48h Temp Pulse Resp BP Pulse Ox O2 Flow Rate 02/26/25 04:17 36.9 C 79 16 118/56 L 98 1 Intake & Output: Intake & Output 02/23/25 02/24/25 02/25/25 02/26/25 23:59 23:59 23:59 23:59 Intake Total 5488 / 5488 Output Total 1984 175 / 175 Balance 3503 / 3503 -175 / -175 Weight (kg) 88.451 kg 83 kg Objective Comments/Other: GEN: No acute distress. Sleeping but wakes easily. HEENT: NC/AT, normal appearance of external ears and nose. Hard of hearing at baseline Cardiac: Regular rate and rhythm, no murmurs. Euvolemic generally. Pulm: Lungs CTA bilaterally, no cough, no wheezes. Abdomen: Soft, nontender, nondistended. No rebound or guarding Extremities: Dressing in place to the right lower extremity. Dressings are CDI. No significant bleeding surrounding. No warmth or erythema. Neuro: Face symmetric, CN II through XII intact grossly. Gait exam deferred Psych: Pleasantly demented. Mood euthymic. Affect normal. Lab Results 02/26/25 04:53 02/26/25 04:53 Other Labs: Lab Results x24hrs 02/26/25 Range/Units 04:53 WBC 7.4 (4.8-10.8) x10^3/uL RBC 3.02 L (4.20-5.40) 10^6/uL Hgb 9.3 L (12.0-16.0) g/dL Hct 29.4 L (37.0-47.0) % MCV 97.4 (81.0-99.0) fL MCH 30.8 (27.0-31.0) pg MCHC 31.6 L (32.0-36.0) g/dL RDW 13.8 (12.0-15.0) % Plt Count 140 (130-450) 10^3/uL MPV 10.5 (7.9-10.8) fL Sodium 139 (135-145) mmol/L Potassium 3.6 (3.5-4.5) mmol/L Chloride 106 (101-111) mmol/L Carbon Dioxide 27 (21-32) mmol/L Anion Gap 6.0 (6-13) BUN 18 (6-20) mg/dL Creatinine 0.6 (0.6-1.3) mg/dL Estimated GFR (MDRD) 95 (>89) Glucose 137 H (74-104) mg/dL Calcium 8.3 L (8.5-10.3) mg/dL Diagnostic Imaging Diagnostic Imaging Results: positive Final report reviewed and Read independently Assessment/Plan Problem List (1) Fracture of femoral neck, right: Impression: Tolerated surgery well with right prosthesis placed on 02/25. Minimal blood loss (100 cc estimated). Minimal pain in the Immediate postoperative period Patient presented with a right femoral neck fracture that was displaced. She had a mechanical ground-level fall prior to arrival. She was taken to the OR on 02/25 where she had a right Hemiprosthesis. - Continue as needed Tylenol, If needing regularly will change to scheduled - Oral narcotics ordered, discontinuing IV narcotics. - Dressing still appears CDI. Anemia as below - Discharge with ASA 162 mg daily for VTE prophylaxis - PT evaluation hopefully today, No weightbearing restrictions. Qualifiers: Encounter type: initial encounter Fracture type: closed Qualified Code(s): S72.001A - Fracture of unspecified part of neck of right femur, initial encounter for closed fracture (2) Alzheimer's dementia: Impression: Stable dementia. Near her baseline. She has had episodes of agitation and gotten Zyprexa 2 nights in a row. Unclear if she has pain that is uncontrolled overnight, but her IV narcotic needs have gone up both nights as well. Patient with known history of Alzheimer's dementia. She relies on her who is her caregiver extensively. They are considering moving into assisted living as she cannot ambulate around their home as she has become more debilitated. She is still feeding herself. Does not have any special dietary needs. She is intermittently aware of her dementia, oriented to self and roughly month. She knows the season most of the time. She is needing to be reoriented that she is in the hospital. - Reasonable to continue Namenda for now - Delirium precautions, should maintain normal sleep-wake cycles - Increase melatonin dose to 6 mg scheduled at 1900. - Deprescribing IV narcotics, oral narcotics and Tylenol available. - Olanzapine ODT available for last resort if agitated - Avoid benzodiazepines as they prolong delirium and increased mortality in her demographic Qualifiers: Alzheimer's disease onset: unspecified onset Dementia severity: m oderate Dementia behavioral or psychological symptom: unspecified whether behavioral, psychotic, or mood disturbance or anxiety Qualified Code(s): G30.9 - Alzheimer's disease, unspecified; F02.B0 - Dementia in other diseases classified elsewhere, moderate, without behavioral disturbance, psychotic disturbance, mood disturbance, and anxiety (3) ESPINOZA (obstructive sleep apnea): Impression: Known history. - Order in place, patient can use home CPAP machine. Has not been brought in. (4) Paroxysmal atrial fibrillation: Impression: Known history. Patient is not on any anticoagulation given her goals of care and deprescribing. Also not on rate control. She is in sinus rhythm. (5) Urinary retention: Impression: Patient with acute urinary retention following surgery. She has a Perdomo in place still. Reportedly had low urine output overnight 02/25-02/26, I do question whether Perdomo just may be kinked. She was drinking plenty of fluids yesterday and her vital signs are not consistent with hypovolemia. Her oral mucosal membranes are dry. - Will trial void today, suspect delayed anesthetic effect. (6) Anemia: Impression: Slightly worsened anemia following surgery. Downtrending from 11.3-9.3. Her vital signs remained stable. She has no signs of major bleeding at this time. Reportedly 100 cc of blood loss intraoperatively. - Continue to monitor vital signs today - If she remains in house tomorrow will recheck CBC, otherwise recheck within 1 week - Transfuse for Hgb less than 7 or unstable vital signs
[2025-02-26] MEDS: CHOLECALCIFEROL 25 MCG TABLET PO SCH (10:54)
[2025-02-26] MEDS: CALCIUM CARBONATE CHEW 500 MG TABLET PO SCH (13:16)
--- NOTE | 2025-02-26 13:16 | PT Plan of Care ---
PT Plan of Care Physical Therapy Plan of Care: Diagnosis Diagnosis R femoral neck fx Diagnosis s/p R hip gabbie 02/25/25 Referring Provider Mario Dubon Patient Status Inpatient Chief Complaint Chief Complaint pain, limited mobility Onset of Chief Complaint 02/24/25 Medical History (Updated 02/26/25 @ 08:06 by Mario Dubon, DO) Urinary tract infection Dyspnea Surgical History (Updated 01/27/25 @ 09:09 by ARLENE Ngo, MSN) Partial traumatic transphalangeal amputation of thumb Hx of hemorrhoidectomy History of hysterectomy (~1978) History of carpal tunnel release S/P knee replacement (~2008) Right History of cholecystectomy (~1984) Status post stereotactic radiosurgery (~2010) L acoustic neuroma History of sleeve gastrectomy (~2017) with hiatal hernia repair Balance/ Functional Results Sitting Balance Fair Standing Balance Unable Assessment Assessment Pt is an 84yo F referred for PT eval s/p R femoral fx d/t GLF on 02/24/25, R hip hemiarthroplasty on 02/25/25, POD1. Pt has dementia, on palliative care, and has chronic balance issues related to acoustic neuroma. Please see medical record for further PMH. Pt lives with Merlin, has a cane for short distances and wc for long distance mobility. Of note, Merlin has been seeking increased CG support and looking into ALFs recently due to pt s increased care needs. Cleared for eval by hospitalist and ortho. WBAT per ortho. Upon PT eval, pt supine in bed, pleasantly confused and cueable. Reports minimal pain at rest and agreeable to participate. Sensation, cap refill and coloration WNL. Active motion of R ankle, unable to perform quad contraction and reports severe pain with all mobility. Requires modAx1 for supine to sit transfer and yells out in pain but is redirectable and able to progress with transfer training. Attempted STS with FWW and 2 person assist. Achieves partial stand but demonstrates increased pain behaviors and elevated RR. Pt closes eyes and becomes minimally cueable d/t pain and anxiety. Attempted JASWANT lift for transfer and pt similarly unable to maintain focus for safe transfer, pushing against sling and reporting severe pain. PT advised nsg to use overhead lift for transfers at this time. Pt presenting with notable mobility impairments and limitations in activity tolerance and endurance. Pt may benefit from continued skilled PT in acute setting to progress functional mobility and initiate gait training. Pt presenting with low rehab potential , but will continue to assess progress during acute stay. When medically clear, PT rec dc to SNF vs memory care with 24/7 care and lift equipment for transfers pending progress. Goals Improve bed mobility to: Minimal Assist Improve supine to sit to: Minimal Assist Improve sit to stand to: Moderate Assist Improve pivot transfer ability Moderate Assist to: Improve sit to supine to: Moderate Assist Improve gait ability to: Mod A Assistive Device Used: Front Wheeled Walker Other gait goal: stand pivot transfer with safe sequencing and min cueing 80% of time Improve Sitting Balance to: Good Improve Standing Balance to: Fair PT Plan of Care Frequency 1-2x/day Duration Until discharge Discharge Recommendations Discharge Location SNF v memory care Other tbd Transport Needs at Discharge B.L.S Other BLS d/t anxiety, recent fx, unable to sit unsupported
[2025-02-26] MEDS: oxyCODONE 5 MG TABLET PO PRN (13:17)
[2025-02-26] MEDS: ACETAMINOPHEN 325 MG TABLET PO PRN (19:22)
--- NOTE | 2025-02-27 08:12 | PROVIDER PROGRESS NOTE ---
Subjective Prog Note Date Prog Note Date: 02/27/25 Prog Note Time: 08:09 Subjective Subjective: Patient overall had a better night. Not needing pain medications overnight. Last dose of oxycodone was yesterday at 1300. Received melatonin and olanzapine last night with good effect. I had a good conversation with the patient's at bedside yesterday. 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 She has had an exciting career, and it is traumatic for Merlin to see his lose her intellect. He is hoping to get her to [place] where they will be for assisted living. I think a brief course of custodial may benefit her such that she can at least transfer from scooter or mobile cart into bed or to the toilet. I did encourage that they may need additional support. I talked to his outpatient palliative provider, Pamela Day as well, and she was quite insightful about the couple needing more support generally and was amenable to the moving into assisted living. Current Medications Current Medications Current Medications: Current Medications Generic Name Dose Route Start Last Admin Trade Name Martinez PRN Reason Stop Dose Admin Acetaminophen 650 mg 02/25/25 00:06 02/26/25 19:22 Acetaminophen 325 Mg Tablet PO 650 mg Q4HR PRN Administration Pain 1 to 4, or Fever Calcium Carbonate/Glycine 500 mg 02/26/25 12:00 02/26/25 13:16 Calcium Carbonate Chew 500 Mg Tablet PO 500 mg DAILY MACHELLE Administration Cholecalciferol 50 mcg 02/26/25 09:00 02/26/25 10:54 Cholecalciferol 25 Mcg Tablet PO 50 mcg DAILY MACHELLE Administration Dorzolamide HCl 1 drops 02/25/25 09:00 02/26/25 21:55 Dorzolamide 2% Ophth Drops EACHEYE 1 drops BID MACHELLE Administration Latanoprost 1 drops 02/25/25 21:00 02/26/25 21:55 Latanoprost 0.005% Ophth Drops EACHEYE 1 drops QPM MACHELLE Administration Melatonin 3 mg 02/25/25 19:00 02/26/25 19:22 Melatonin 3 Mg Tablet PO 3 mg Q24H MACHELLE Administration Memantine 10 mg 02/25/25 21:00 02/26/25 21:56 Memantine 5 Mg Tablet PO 10 mg BID MACHELLE Administration Olanzapine 5 mg 02/25/25 16:45 02/26/25 22:52 Olanzapine Odt 5 Mg Tablet TL 5 mg BID PRN Administration Agitation Ondansetron HCl 4 mg 02/25/25 00:06 02/25/25 00:28 Ondansetron 4 Mg/2 Ml Vial IVP 4 mg Q6HR PRN Administration Nausea / Vomiting Ondansetron HCl 4 mg 02/25/25 00:06 Ondansetron Odt 4 Mg Tablet TL Q6HR PRN Nausea / Vomiting Oxycodone HCl 5 mg 02/26/25 08:03 02/26/25 13:17 Oxycodone 5 Mg Tablet PO 5 mg Q4HR PRN Administration PAIN 5-7 Polyethylene Glycol 17 gm 02/27/25 09:00 Polyethylene Glycol 3350 17 Gm Packet PO DAILY MACHELLE Sodium Chloride 10 ml 02/25/25 00:06 Sodium Chloride Flush 0.9% 10 Ml Syringe IVP PRN PRN NEEDED PER PROVIDER ORDERS Sodium Chloride 10 ml 02/25/25 01:00 02/27/25 00:30 Sodium Chloride Flush 0.9% 10 Ml Syringe IVP 10 ml 0100,0900,1700 MACHELLE Administration Sodium Chloride 10 ml 02/25/25 16:38 Sodium Chloride Flush 0.9% 10 Ml Syringe IVP PRN PRN NEEDED PER PROVIDER ORDERS Sodium Chloride 10 ml 02/25/25 17:00 02/27/25 00:30 Sodium Chloride Flush 0.9% 10 Ml Syringe IVP Not Given 0100,0900,1700 MACHELLE Timolol Maleate 1 drops 02/25/25 09:00 02/26/25 10:52 Timolol 0.5% Ophth Drops EACHEYE 1 drops DAILY MACHELLE Administration Zinc Oxide 2 gm 02/25/25 18:00 02/27/25 06:13 Cod Liver Oil/Zinc Oxide 113 Gm Tube TOP 2 gm 5XD MACHELLE Administration Objective Vital Signs/Intake & Output Vital Signs: Vital Signs x48h Temp Pulse Resp BP Pulse Ox O2 Flow Rate 02/27/25 00:35 36.5 C 85 18 128/59 L 94 1 Intake & Output: Intake & Output 02/24/25 02/25/25 02/26/25 02/27/25 23:59 23:59 23:59 23:59 Intake Total 5488 / 5488 1110 / 1110 Output Total 1984 325 / 325 700 / 700 Balance 3503 / 3503 785 / 785 -700 / -700 Weight (kg) 88.451 kg 83 kg Objective Comments/Other: GEN: No acute distress. Sleeping but wakes easily. HEENT: NC/AT, normal appearance of external ears and nose. Hard of hearing at baseline Cardiac: Regular rate and rhythm, no murmurs. Euvolemic generally. Pulm: Lungs CTA bilaterally, no cough, no wheezes. Abdomen: Soft, nontender, nondistended. No rebound or guarding Extremities: Dressing in place to the right lower extremity. Dressings are CDI. No significant bleeding surrounding. No warmth or erythema. Neuro: Face symmetric, CN II through XII intact grossly. Gait exam deferred Psych: Pleasantly demented. Mood euthymic. Affect normal. Lab Results 02/26/25 04:53 02/26/25 04:53 Other Labs: Lab Results x24hrs 02/26/25 Range/Units 04:53 WBC 7.4 (4.8-10.8) x10^3/uL RBC 3.02 L (4.20-5.40) 10^6/uL Hgb 9.3 L (12.0-16.0) g/dL Hct 29.4 L (37.0-47.0) % MCV 97.4 (81.0-99.0) fL MCH 30.8 (27.0-31.0) pg MCHC 31.6 L (32.0-36.0) g/dL RDW 13.8 (12.0-15.0) % Plt Count 140 (130-450) 10^3/uL MPV 10.5 (7.9-10.8) fL Sodium 139 (135-145) mmol/L Potassium 3.6 (3.5-4.5) mmol/L Chloride 106 (101-111) mmol/L Carbon Dioxide 27 (21-32) mmol/L Anion Gap 6.0 (6-13) BUN 18 (6-20) mg/dL Creatinine 0.6 (0.6-1.3) mg/dL Estimated GFR (MDRD) 95 (>89) Glucose 137 H (74-104) mg/dL Calcium 8.3 L (8.5-10.3) mg/dL Diagnostic Imaging Diagnostic Imaging Results: positive Final report reviewed and Read independently Assessment/Plan Problem List (1) Fracture of femoral neck, right: Impression: Pain remains well-controlled. Not needing narcotics. Minimal tenderness around her incision site. Her dressings are CDI. Tolerated surgery well with right prosthesis placed on 02/25. Minimal blood loss (100 cc estimated). Minimal pain in the Immediate postoperative period Patient presented with a right femoral neck fracture that was displaced. She had a mechanical ground-level fall prior to arrival. She was taken to the OR on 02/25 where she had a right Hemiprosthesis. - Continue as needed Tylenol - Oral narcotics As needed for breakthrough - Discussed with surgery again 02/27, full weightbearing. - Will discharge with ASA 162 mg daily for VTE prophylaxis, Will need 4 weeks, EOT 03/28 - PT evaluation hopefully today, No weightbearing restrictions. Qualifiers: Encounter type: initial encounter Fracture type: closed Qualified Code(s): S72.001A - Fracture of unspecified part of neck of right femur, initial encounter for closed fracture (2) Alzheimer's dementia: Impression: Continues to have regular episodes of agitation every evening. She is on olanzapine ODT as needed, transition to scheduled at 9:00. She has been responding to this treatment well. Patient with known history of Alzheimer's dementia. She relies on her who is her caregiver extensively. Progressively more debilitated over the ensuing months. Family is considering moving into assisted living so they can be together and she can use more assistive devices to ambulate. Discussion with their outpatient palliative doctor, their house is filled with tripping hazards. She is still feeding herself. Does not have any special dietary needs. She is intermittently aware of her dementia, oriented to self and roughly month. She knows the season most of the time. Needs frequent reorientation while being in the hospital. - Reasonable to continue Namenda for now - Counseled the family extensively on the progressive nature of dementia and the fact that at some point in time she may not be able to control her skeletal muscles, will not be able to eat. That is the time where they would qualify for hospice. - Delirium precautions, should maintain normal sleep-wake cycles - Increase melatonin dose to 6 mg scheduled at 1900. - Scheduled olanzapine ODT nightly - Avoid benzodiazepines as they prolong delirium and increased mortality in her demographic Qualifiers: Alzheimer's disease onset: unspecified onset Dementia behavioral or psychological symptom: with agitation Dementia severity: moderate Qualified Code(s): G30.9 - Alzheimer's disease, unspecified; F02.B11 - Dementia in other diseases classified elsewhere, moderate, with agitation (3) ESPINOZA (obstructive sleep apnea): Impression: Known history. Not on CPAP. (4) Paroxysmal atrial fibrillation: Impression: Known history. Patient is not on any anticoagulation given her goals of care and deprescribing. Also not on rate control. She is in sinus rhythm. (5) Urinary retention: Impression: Patient with acute urinary retention following surgery. She has a Perdomo in place still. Reportedly had low urine output overnight 02/25-02/26, I do question whether Perdomo just may be kinked. She was drinking plenty of fluids yesterday and her vital signs are not consistent with hypovolemia. Her oral mucosal membranes are dry. - She is still failing a trial of void. Perdomo catheter rereplaced today - Not yet medically cleared. - Ideally would not go with a Perdomo in place given her immobility and dementia which both put her at risk for infection and deterioration. (6) Anemia: Impression: Has remained hemodynamically stable. Her blood pressure is 110/57. Pulse 85. Slightly worsened anemia following surgery. Downtrending from 11.3-9.3. Her vital signs remained stable. She has no signs of major bleeding at this time. Reportedly 100 cc of blood loss intraoperatively. - Monitor CBC a.m., transfuse Hgb less than 7 or for unstable vital signs.
[2025-02-28] MEDS: ASPIRIN EC 81 MG TABLET PO SCH (08:08)
--- NOTE | 2025-02-28 08:13 | PROVIDER PROGRESS NOTE ---
Subjective Prog Note Date Prog Note Date: 02/28/25 Prog Note Time: 08:12 Subjective Subjective: Waiting on a.m. labs. Patient slept well last night. Did not require olanzapine. Got APAP x 1 and oxy x 1. Pain reasonably controlled this morning. Afebrile. Vital signs stable. Patient had Perdomo replaced yesterday given acute urinary retention. I suspect this is mostly related to her recent surgery and a delayed anesthetic effect. Additionally she is not mobilizing much. Despite limited data, we will try her on tamsulosin today to see if we can promote Perdomo removal. Given her underlying dementia, it is disadvantageous to leave the Perdomo in place. It is a nidus for infection in combination with her immobility secondary to her surgery. Finally, she is at risk for traumatic Perdomo removal which may lead to chronic urinary retention. Patient overall is in good spirits today. She is mentating somewhat better today. She shares stories about her past. She still has severe word finding difficulties. Denies any pain, denies chest pain, dyspnea, nausea, vomiting. No further fevers. Dressings are CDI to her wound on her right hip. Current Medications Current Medications Current Medications: Current Medications Generic Name Dose Route Start Last Admin Trade Name Freq PRN Reason Stop Dose Admin Acetaminophen 650 mg 02/25/25 00:06 02/27/25 23:41 Acetaminophen 325 Mg Tablet PO 650 mg Q4HR PRN Administration Pain 1 to 4, or Fever Aspirin 162 mg 02/28/25 09:00 Aspirin Ec 81 Mg Tablet PO 03/28/25 08:59 DAILY MACHELLE Calcium Carbonate/Glycine 500 mg 02/26/25 12:00 02/27/25 09:27 Calcium Carbonate Chew 500 Mg Tablet PO 500 mg DAILY MACHELLE Administration Cholecalciferol 50 mcg 02/26/25 09:00 02/27/25 09:27 Cholecalciferol 25 Mcg Tablet PO 50 mcg DAILY MACHELLE Administration Dorzolamide HCl 1 drops 02/25/25 09:00 02/27/25 21:17 Dorzolamide 2% Ophth Drops EACHEYE 1 drops BID MACHELLE Administration Latanoprost 1 drops 02/25/25 21:00 02/27/25 21:17 Latanoprost 0.005% Ophth Drops EACHEYE 1 drops QPM MACHELLE Administration Melatonin 3 mg 02/25/25 19:00 02/27/25 21:17 Melatonin 3 Mg Tablet PO 3 mg Q24H MACHELLE Administration Memantine 10 mg 02/25/25 21:00 02/27/25 21:17 Memantine 5 Mg Tablet PO 10 mg BID MACHELLE Administration Olanzapine 5 mg 02/25/25 16:45 02/26/25 22:52 Olanzapine Odt 5 Mg Tablet TL 5 mg BID PRN Administration Agitation Ondansetron HCl 4 mg 02/25/25 00:06 02/25/25 00:28 Ondansetron 4 Mg/2 Ml Vial IVP 4 mg Q6HR PRN Administration Nausea / Vomiting Ondansetron HCl 4 mg 02/25/25 00:06 Ondansetron Odt 4 Mg Tablet TL Q6HR PRN Nausea / Vomiting Oxycodone HCl 5 mg 02/26/25 08:03 02/28/25 03:45 Oxycodone 5 Mg Tablet PO 5 mg Q4HR PRN Administration PAIN 5-7 Polyethylene Glycol 17 gm 02/27/25 09:00 02/27/25 09:33 Polyethylene Glycol 3350 17 Gm Packet PO 17 gm DAILY MACHELLE Administration Sodium Chloride 10 ml 02/25/25 00:06 Sodium Chloride Flush 0.9% 10 Ml Syringe IVP PRN PRN NEEDED PER PROVIDER ORDERS Sodium Chloride 10 ml 02/25/25 01:00 02/27/25 23:41 Sodium Chloride Flush 0.9% 10 Ml Syringe IVP 10 ml 0100,0900,1700 MACHELLE Administration Sodium Chloride 10 ml 02/25/25 16:38 Sodium Chloride Flush 0.9% 10 Ml Syringe IVP PRN PRN NEEDED PER PROVIDER ORDERS Sodium Chloride 10 ml 02/25/25 17:00 02/28/25 01:33 Sodium Chloride Flush 0.9% 10 Ml Syringe IVP Not Given 0100,0900,1700 MACHELLE Timolol Maleate 1 drops 02/25/25 09:00 02/27/25 09:27 Timolol 0.5% Ophth Drops EACHEYE 1 drops DAILY MACHELLE Administration Zinc Oxide 2 gm 02/25/25 18:00 02/28/25 05:08 Cod Liver Oil/Zinc Oxide 113 Gm Tube TOP 2 gm 5XD MACHELLE Administration Objective Vital Signs/Intake & Output Vital Signs: Vital Signs x48h Temp Pulse Resp BP Pulse Ox O2 Flow Rate 02/27/25 00:35 36.5 C 85 18 128/59 L 94 1 Intake & Output: Intake & Output 02/25/25 02/26/25 02/27/25 02/28/25 23:59 23:59 23:59 23:59 Intake Total 5488 / 5488 1110 / 1110 240 / 240 Output Total 1984 325 / 325 2545 / 2545 350 / 350 Balance 3503 / 3503 785 / 785 -2305 / -2305 -350 / -350 Weight (kg) 83 kg Objective Comments/Other: GEN: No acute distress. Sleeping but wakes easily. HEENT: NC/AT, normal appearance of external ears and nose. Hard of hearing at baseline Cardiac: Regular rate and rhythm, no murmurs. Euvolemic generally. Pulm: Lungs CTA bilaterally, no cough, no wheezes. Abdomen: Soft, nontender, nondistended. No rebound or guarding Extremities: Dressing in place to the right lower extremity. Dressings are CDI. No significant bleeding surrounding. No warmth or erythema. Neuro: Face symmetric, CN II through XII intact grossly. Gait exam deferred Psych: Pleasantly demented. Mood euthymic. Affect normal. Lab Results 02/28/25 08:32 02/26/25 04:53 Other Labs: Lab Results x24hrs 02/26/25 Range/Units 04:53 WBC 7.4 (4.8-10.8) x10^3/uL RBC 3.02 L (4.20-5.40) 10^6/uL Hgb 9.3 L (12.0-16.0) g/dL Hct 29.4 L (37.0-47.0) % MCV 97.4 (81.0-99.0) fL MCH 30.8 (27.0-31.0) pg MCHC 31.6 L (32.0-36.0) g/dL RDW 13.8 (12.0-15.0) % Plt Count 140 (130-450) 10^3/uL MPV 10.5 (7.9-10.8) fL Sodium 139 (135-145) mmol/L Potassium 3.6 (3.5-4.5) mmol/L Chloride 106 (101-111) mmol/L Carbon Dioxide 27 (21-32) mmol/L Anion Gap 6.0 (6-13) BUN 18 (6-20) mg/dL Creatinine 0.6 (0.6-1.3) mg/dL Estimated GFR (MDRD) 95 (>89) Glucose 137 H (74-104) mg/dL Calcium 8.3 L (8.5-10.3) mg/dL Diagnostic Imaging Diagnostic Imaging Results: positive Final report reviewed and Read independently Assessment/Plan Problem List (1) Fracture of femoral neck, right: Impression: Pain remains well-controlled. Not needing IV narcotics. Dressing in her right hip is CDI. She has no significant pain or tenderness around her incision site. No erythema or induration. Tolerated surgery well with right prosthesis placed on 02/25. Minimal blood loss (100 cc estimated). Minimal pain in the Immediate postoperative period Patient presented with a right femoral neck fracture that was displaced. She had a mechanical ground-level fall prior to arrival. She was taken to the OR on 02/25 where she had a right Hemiprosthesis. Postoperatively she is full weightbearing. - Continue as needed Tylenol - Oral narcotics as needed for breakthrough - Continue full weightbearing. No specific precautions. Dressing changes if soiled. - Will discharge with ASA 162 mg daily for VTE prophylaxis, Will need 4 weeks, EOT 03/28 - PT has evaluated, they are recommending SNF. [facility] to [facility], pending treatment of her acute urinary retention as below. Qualifiers: Encounter type: initial encounter Fracture type: closed Qualified Code(s): S72.001A - Fracture of unspecified part of neck of right femur, initial encounter for closed fracture (2) Urinary retention: Impression: Ongoing and recurrent. Perdomo was replaced on 02/27. Patient had acute urinary retention following surgery, Perdomo was left in place after surgery. This was removed on 02/26, however had to be replaced on 02/27. Continuing indwelling catheter indefinitely in this patient is a terrible idea. Given her limited mobility and dementia, she is at very high risk for urinary tract infection. Given her cognitive state, she is at high risk for traumatic Perdomo self removal, she already demonstrates awakening with night terrors in the evening. - Will start on tamsulosin today, once she has 2 doses and by midday tomorrow, will try removal of Perdomo again - Will try and mobilize her today, recommend getting up to the chair for meals - If she fails a trial of void again tomorrow, she will have to go out with Perdomo catheter, but this is a last resort. (3) Alzheimer's dementia: Impression: Slept last night without significant agitation. She has been using as needed olanzapine ODT, but did not receive it last night. Known history of Alzheimer's dementia, progressive over the last few months. Her and her are moving from their home to assisted living, plan for the next week. I discussed with Pamela Day, they are a palliative provider on 02/26, she agrees with the plan to get out of their house as it is filled with tripping hazards. Patient's was counseled earlier this hospitalization and the progressive nature of the disease. At the time where she cannot feed herself, I've advised that would be the time to consider for transition to hospice. Patient still feeds her self. No special dietary needs. Intermittently more lucid, but best mentation is oriented to self, month, and situation. Confabulates frequently. - Reasonable to continue Namenda for now - Delirium precautions, should maintain normal sleep-wake cycles - Increase melatonin dose to 6 mg scheduled at 1900. - As needed olanzapine twice daily - Avoid benzodiazepines as they prolong delirium and increased mortality in her demographic Qualifiers: Alzheimer's disease onset: unspecified onset Dementia behavioral or psychological symptom: with agitation Dementia severity: moderate Qualified Code(s): G30.9 - Alzheimer's disease, unspecified; F02.B11 - Dementia in other diseases classified elsewhere, moderate, with agitation (4) ESPINOZA (obstructive sleep apnea): Impression: Known history. Not on CPAP. (5) Paroxysmal atrial fibrillation: Impression: Known history. Patient is not on any anticoagulation given her goals of care and deprescribing. Also not on rate control. She is in sinus rhythm. (6) Anemia: Impression: Hemoglobin has increased from yesterday. Holding stable around 10. Vital signs remained stable. Pulse in the 70s. Slightly worsened anemia following surgery. Downtrending from 11.3-9.3. She has no signs of major bleeding at this time. Reportedly 100 cc of blood loss intraoperatively. - Monitor clinically for any significant blood loss. - Surgical wound management as above
[2025-02-28 08:37] LABS: HCT - HEMATOCRIT 30.6 % (37.0-47.0); HGB - HEMOGLOBIN 9.7 g/dL (12.0-16.0); MEAN PLATELET VOLUME 10.8 fL (7.9-10.8); NRBC ABSOLUTE COUNT (AUTO) 0.00 x10^3/uL; NUCLEATED RED BLOOD CELLS AUTO 0.0 /100WBC; PLT - PLATELET COUNT 160 10^3/uL (130-450); RED CELL DISTRIBUTION WIDTH 13.3 % (12.0-15.0)
[2025-02-28] MEDS: TAMSULOSIN 0.4 MG CAPSULE PO SCH (13:35)
[2025-02-28] MEDS: MELATONIN 3 MG TABLET PO SCH (18:50)
--- NOTE | 2025-03-01 08:16 | PROVIDER PROGRESS NOTE ---
Subjective Prog Note Date Prog Note Date: 03/01/25 Prog Note Time: 08:14 Subjective Subjective: Doing about the same this morning. Still with minimal pain. She still has a Perdomo in place as this morning. She is been tolerating tamsulosin. Her blood pressure is normal. Denies any dizziness or lightheadedness. No falls. She received olanzapine ODT this morning. Will trial removal of Perdomo later today, continue on tamsulosin indefinitely. If Perdomo is able to be removed later today, she will be medically cleared ready for discharge thereafter. Current Medications Current Medications Current Medications: Current Medications Generic Name Dose Route Start Last Admin Trade Name Freq PRN Reason Stop Dose Admin Acetaminophen 650 mg 02/25/25 00:06 02/27/25 23:41 Acetaminophen 325 Mg Tablet PO 650 mg Q4HR PRN Administration Pain 1 to 4, or Fever Aspirin 162 mg 02/28/25 09:00 03/01/25 08:09 Aspirin Ec 81 Mg Tablet PO 03/28/25 08:59 162 mg DAILY MACHELLE Administration Calcium Carbonate/Glycine 500 mg 02/26/25 12:00 03/01/25 08:08 Calcium Carbonate Chew 500 Mg Tablet PO 500 mg DAILY MACHELLE Administration Cholecalciferol 50 mcg 02/26/25 09:00 03/01/25 08:09 Cholecalciferol 25 Mcg Tablet PO 50 mcg DAILY MACHELLE Administration Dorzolamide HCl 1 drops 02/25/25 09:00 03/01/25 08:10 Dorzolamide 2% Ophth Drops EACHEYE 1 drops BID MACHELLE Administration Latanoprost 1 drops 02/25/25 21:00 02/28/25 20:03 Latanoprost 0.005% Ophth Drops EACHEYE 1 drops QPM MACHELLE Administration Melatonin 6 mg 02/28/25 19:00 02/28/25 18:50 Melatonin 3 Mg Tablet PO 6 mg Q24H MACHELLE Administration Memantine 10 mg 02/25/25 21:00 03/01/25 08:09 Memantine 5 Mg Tablet PO 10 mg BID MACHELLE Administration Olanzapine 5 mg 02/25/25 16:45 03/01/25 08:09 Olanzapine Odt 5 Mg Tablet TL 5 mg BID PRN Administration Agitation Ondansetron HCl 4 mg 02/25/25 00:06 02/25/25 00:28 Ondansetron 4 Mg/2 Ml Vial IVP 4 mg Q6HR PRN Administration Nausea / Vomiting Ondansetron HCl 4 mg 02/25/25 00:06 Ondansetron Odt 4 Mg Tablet TL Q6HR PRN Nausea / Vomiting Oxycodone HCl 5 mg 02/26/25 08:03 02/28/25 03:45 Oxycodone 5 Mg Tablet PO 5 mg Q4HR PRN Administration PAIN 5-7 Polyethylene Glycol 17 gm 02/27/25 09:00 03/01/25 08:07 Polyethylene Glycol 3350 17 Gm Packet PO 17 gm DAILY MACHELLE Administration Sodium Chloride 10 ml 02/25/25 00:06 Sodium Chloride Flush 0.9% 10 Ml Syringe IVP PRN PRN NEEDED PER PROVIDER ORDERS Sodium Chloride 10 ml 02/25/25 01:00 03/01/25 08:10 Sodium Chloride Flush 0.9% 10 Ml Syringe IVP 10 ml 0100,0900,1700 MACHELLE Administration Sodium Chloride 10 ml 02/25/25 16:38 Sodium Chloride Flush 0.9% 10 Ml Syringe IVP PRN PRN NEEDED PER PROVIDER ORDERS Sodium Chloride 10 ml 02/25/25 17:00 03/01/25 08:10 Sodium Chloride Flush 0.9% 10 Ml Syringe IVP Not Given 0100,0900,1700 MACHELLE Tamsulosin HCl 0.4 mg 02/28/25 12:00 03/01/25 08:09 Tamsulosin 0.4 Mg Capsule PO 0.4 mg DAILY MACHELLE Administration Timolol Maleate 1 drops 02/25/25 09:00 03/01/25 08:10 Timolol 0.5% Ophth Drops EACHEYE 1 drops DAILY MACHELLE Administration Zinc Oxide 2 gm 02/25/25 18:00 03/01/25 08:08 Cod Liver Oil/Zinc Oxide 113 Gm Tube TOP 2 gm 5XD MACHELLE Administration Objective Vital Signs/Intake & Output Vital Signs: Vital Signs x48h Temp Pulse Resp BP Pulse Ox 03/01/25 07:35 36.6 C 88 16 128/66 97 Intake & Output: Intake & Output 02/26/25 02/27/25 02/28/25 03/01/25 23:59 23:59 23:59 23:59 Intake Total 1110 / 1110 240 / 240 240 / 240 Output Total 325 / 325 2545 / 2545 1050 / 1050 275 / 275 Balance 785 / 785 -2305 / -2305 -810 / -810 -275 / -275 Objective Comments/Other: GEN: No acute distress. Sleeping but wakes easily. HEENT: NC/AT, normal appearance of external ears and nose. Hard of hearing at baseline Cardiac: Regular rate and rhythm, no murmurs. Euvolemic generally. Pulm: Lungs CTA bilaterally, no cough, no wheezes. Abdomen: Soft, nontender, nondistended. No rebound or guarding Extremities: Dressing in place to the right lower extremity. Dressings are CDI. No significant bleeding surrounding. No warmth or erythema. Neuro: Face symmetric, CN II through XII intact grossly. Gait exam deferred Psych: Pleasantly demented. Mood euthymic. Affect normal. Lab Results 02/28/25 08:32 02/26/25 04:53 Other Labs: Lab Results x24hrs 02/28/25 Range/Units 08:32 WBC 8.1 (4.8-10.8) x10^3/uL RBC 3.17 L (4.20-5.40) 10^6/uL Hgb 9.7 L (12.0-16.0) g/dL Hct 30.6 L (37.0-47.0) % MCV 96.5 (81.0-99.0) fL MCH 30.6 (27.0-31.0) pg MCHC 31.7 L (32.0-36.0) g/dL RDW 13.3 (12.0-15.0) % Plt Count 160 (130-450) 10^3/uL MPV 10.8 (7.9-10.8) fL Neut # (Auto) 5.9 (1.5-6.6) 10^3/uL Lymph # (Auto) 1.3 L (1.5-3.5) 10^3/uL [place] # (Auto) 0.6 (0.0-1.0) 10^3/uL Eos # (Auto) 0.3 (0.0-0.7) 10^3/uL Baso # (Auto) 0.0 (0.0-0.1) 10^3/uL Absolute Nucleated RBC 0.00 x10^3/uL Nucleated RBC % 0.0 /100WBC Diagnostic Imaging Diagnostic Imaging Results: positive Final report reviewed and Read independently Assessment/Plan Problem List (1) Fracture of femoral neck, right: Impression: She remains clinically stable. No bleeding. She is having minimal pain. R hemiprosthesis placed on 02/25. Minimal blood loss (100 cc estimated). Patient presented with a right femoral neck fracture that was displaced. She had a mechanical ground-level fall prior to arrival. She was taken to the OR on 02/25 where she had a right Hemiprosthesis. Postoperatively she is full weightbearing. - Continue as needed Tylenol - Oral narcotics as needed for breakthrough - Continue full weightbearing. No specific precautions. Dressing changes if soiled. - Will discharge with ASA 162 mg daily for VTE prophylaxis, Will need 4 weeks, EOT 03/28 - PT has evaluated, they are recommending SNF. To reevaluate today. - Possibly discharge to [facility], pending treatment of her acute urinary retention as below. Qualifiers: Encounter type: initial encounter Fracture type: closed Qualified Code(s): S72.001A - Fracture of unspecified part of neck of right femur, initial encounter for closed fracture (2) Urinary retention: Impression: Perdomo is in place since 02/27. Received tamsulosin x 2 02/28 and 03/01 AM. Tolerating alpha antagonist well, No hypotension, no orthostatic symptoms. Patient had acute urinary retention following surgery, Perdomo was left in place after surgery. This was removed on 02/26, however had to be replaced on 02/27. Indwelling catheter at discharge would be contraindicated. Given her limited mobility and dementia, she is at very high risk for urinary tract infection. Given her cognitive state, she is at high risk for traumatic Perdomo self removal, she already demonstrates awakening with night terrors in the evening. - Trial of void today, will order at noon - Tamsulosin daily indefinitely - Appreciate PT, mobilize as able. - If urinary retention recurs, will likely have to d/c with indwelling catheter but this is a last resort. (3) Alzheimer's dementia: Impression: Not having any significant agitation. She did receive a dose of olanzapine incidentally this morning, it was ordered as needed but given as if it was scheduled. Known history of Alzheimer's dementia, progressive over the last few months. Her and her are moving from their home to assisted living, plan for the next week. I discussed with Pamela Day, they are a palliative provider on 02/26, she agrees with the plan to get out of their house as it is filled with tripping hazards. Patient's was counseled earlier this hospitalization and the progressive nature of the disease. At the time where she cannot feed herself, I've advised that would be the time to consider for transition to hospice. Patient still feeds her self. No special dietary needs. Intermittently more lucid, but best mentation is oriented to self, month, and situation. Confabulates frequently. - Continue Namenda. - Delirium precautions, should maintain normal sleep-wake cycles - Melatonin scheduled 6 mg at 1900 each evening, patient sleeping well on this. - As needed olanzapine twice daily, only for agitation interfering or disrupting patient safety. - Avoid benzodiazepines as they prolong delirium and increased mortality in her demographic Qualifiers: Alzheimer's disease onset: unspecified onset Dementia behavioral or psychological symptom: with agitation Dementia severity: moderate Qualified Code(s): G30.9 - Alzheimer's disease, unspecified; F02.B11 - Dementia in other diseases classified elsewhere, moderate, with agitation (4) ESPINOZA (obstructive sleep apnea): Impression: Known history. Not on CPAP. (5) Paroxysmal atrial fibrillation: Impression: Known history. Patient is not on any anticoagulation given her goals of care and deprescribing. Also not on rate control. She is in sinus rhythm. (6) Anemia: Impression: Hemoglobin was holding stable around 10 when last checked. Her vital signs have remained stable. She is not tachycardic. Normotensive. Slightly worsened anemia following surgery. Downtrending from 11.3-9.3. She has no signs of major bleeding at this time. Reportedly 100 cc of blood loss intraoperatively. - Monitor clinically for signs of blood loss or unstable vital signs. - Surgical wound management as above
--- NOTE | 2025-03-02 09:41 | PROVIDER PROGRESS NOTE ---
Subjective Prog Note Date Prog Note Date: 03/02/25 Prog Note Time: 09:40 Subjective Subjective: No acute events overnight. Did not need any medications for agitation last night. Has been responding well to 6 mg of melatonin. Sleeping well this morning. Wakes easily. A breakfast this morning. Waiting to see how she is doing on bladder scan, would preference not trying to replace her Perdomo catheter if possible. Otherwise she is medically stable for discharge. Awaiting to hear back from [facility] about intake. She worked with PT yesterday, and he was impressed with her strength and coordination. She needs frequent cueing. Current Medications Current Medications Current Medications: Current Medications Generic Name Dose Route Start Last Admin Trade Name Freq PRN Reason Stop Dose Admin Acetaminophen 650 mg 02/25/25 00:06 02/27/25 23:41 Acetaminophen 325 Mg Tablet PO 650 mg Q4HR PRN Administration Pain 1 to 4, or Fever Aspirin 162 mg 02/28/25 09:00 03/01/25 08:09 Aspirin Ec 81 Mg Tablet PO 03/28/25 08:59 162 mg DAILY MACHELLE Administration Calcium Carbonate/Glycine 500 mg 02/26/25 12:00 03/01/25 08:08 Calcium Carbonate Chew 500 Mg Tablet PO 500 mg DAILY MACHELLE Administration Cholecalciferol 50 mcg 02/26/25 09:00 03/01/25 08:09 Cholecalciferol 25 Mcg Tablet PO 50 mcg DAILY MACHELLE Administration Dorzolamide HCl 1 drops 02/25/25 09:00 03/01/25 21:58 Dorzolamide 2% Ophth Drops EACHEYE 1 drops BID MACHELLE Administration Latanoprost 1 drops 02/25/25 21:00 03/01/25 21:58 Latanoprost 0.005% Ophth Drops EACHEYE 1 drops QPM MACHELLE Administration Melatonin 6 mg 02/28/25 19:00 03/01/25 19:33 Melatonin 3 Mg Tablet PO 6 mg Q24H MACHELLE Administration Memantine 10 mg 02/25/25 21:00 03/01/25 21:58 Memantine 5 Mg Tablet PO 10 mg BID MACHELLE Administration Olanzapine 5 mg 02/25/25 16:45 03/01/25 08:09 Olanzapine Odt 5 Mg Tablet TL 5 mg BID PRN Administration Agitation Ondansetron HCl 4 mg 02/25/25 00:06 02/25/25 00:28 Ondansetron 4 Mg/2 Ml Vial IVP 4 mg Q6HR PRN Administration Nausea / Vomiting Ondansetron HCl 4 mg 02/25/25 00:06 Ondansetron Odt 4 Mg Tablet TL Q6HR PRN Nausea / Vomiting Oxycodone HCl 5 mg 02/26/25 08:03 02/28/25 03:45 Oxycodone 5 Mg Tablet PO 5 mg Q4HR PRN Administration PAIN 5-7 Polyethylene Glycol 17 gm 02/27/25 09:00 03/01/25 08:07 Polyethylene Glycol 3350 17 Gm Packet PO 17 gm DAILY MACHELLE Administration Sodium Chloride 10 ml 02/25/25 00:06 Sodium Chloride Flush 0.9% 10 Ml Syringe IVP PRN PRN NEEDED PER PROVIDER ORDERS Sodium Chloride 10 ml 02/25/25 01:00 03/01/25 23:28 Sodium Chloride Flush 0.9% 10 Ml Syringe IVP 10 ml 0100,0900,1700 MACHELLE Administration Sodium Chloride 10 ml 02/25/25 16:38 Sodium Chloride Flush 0.9% 10 Ml Syringe IVP PRN PRN NEEDED PER PROVIDER ORDERS Sodium Chloride 10 ml 02/25/25 17:00 03/01/25 23:28 Sodium Chloride Flush 0.9% 10 Ml Syringe IVP Not Given 0100,0900,1700 MACHELLE Tamsulosin HCl 0.4 mg 02/28/25 12:00 03/01/25 08:09 Tamsulosin 0.4 Mg Capsule PO 0.4 mg DAILY MACHELLE Administration Timolol Maleate 1 drops 02/25/25 09:00 03/01/25 08:10 Timolol 0.5% Ophth Drops EACHEYE 1 drops DAILY MACHELLE Administration Zinc Oxide 2 gm 02/25/25 18:00 03/02/25 05:20 Cod Liver Oil/Zinc Oxide 113 Gm Tube TOP 2 gm 5XD MACHELLE Administration Objective Vital Signs/Intake & Output Intake & Output: Intake & Output 02/27/25 02/28/25 03/01/25 03/02/25 23:59 23:59 23:59 23:59 Intake Total 240 / 240 240 / 240 580 / 580 Output Total 2545 / 2545 1050 / 1050 475 / 475 0 / 0 Balance -2305 / -2305 -810 / -810 105 / 105 0 / 0 Lab Results 02/28/25 08:32 02/26/25 04:53 Assessment/Plan Problem List (1) Fracture of femoral neck, right: Qualifiers: Encounter type: initial encounter Fracture type: closed Qualified Code(s): S72.001A - Fracture of unspecified part of neck of right femur, initial encounter for closed fracture (2) Urinary retention: (3) Alzheimer's dementia: Qualifiers: Alzheimer's disease onset: unspecified onset Dementia severity: m oderate Dementia behavioral or psychological symptom: with agitation Qualified Code(s): G30.9 - Alzheimer's disease, unspecified; F02.B11 - Dementia in other diseases classified elsewhere, moderate, with agitation (4) ESPINOZA (obstructive sleep apnea): (5) Paroxysmal atrial fibrillation: (6) Anemia:
--- NOTE | 2025-03-02 12:07 | Discharge Summary ---
"Discharge Summary Admit Date: 02/24/25 Discharge Date: 03/02/25 Discharging Provider: Mario Dubon Primary Care Provider: Abby Medel Code Status: Do Not Attempt Resuscitation Discharge Facility Name: [facility] DIAGNOSES Discharge Diagnoses with Status of Each Condition: Right hip fracture, s/p hemiprosthesis with routine healing Disequilibrium, improving Presented with right hip fracture after ground-level fall. Repaired operatively 02/24. She has had routine healing. No significant blood loss. Hemoglobin has remained stable postoperatively. Has been seen by PT and is recommending ongoing rehab with SNF. She is rehabbed here well and continues to get better. Goal for rehabilitation would be to get well enough to go back to assisted living with her . They are moving into assisted living this week. - Full weightbearing, activity as tolerated - Continue ASA 162 mg daily for 4 weeks, EOT 03/24. - Pain management with as needed Tylenol - Ongoing physical therapy, patient discharging to SNF. - Will need follow-up with orthopedic surgery around the second week of March Alzheimer's dementia, stable, chronic Has had precipitous decline over the preceding months. She is unsafe to return home. Family are moving into assisted living. They follow with palliative care. She was requiring medications for acute agitation earlier in her hospitalization, this is resolved with improved pain control. - Continue nightly melatonin 1 to 2 hours prior to bedtime - Reasonable to continue memantine - Continue follow-up with primary care and palliative. Acute urine retention, improved Postoperatively, the patient had urinary retention requiring persistent Perdomo which was left in place after operating room. Trial of void was failed around 02/27. She has been able to void, but is voiding irregularly. - Continue tamsulosin - Continue bladder scans if patient is unable to void - Would preference straight catheterization versus leaving indwelling Perdomo given her advanced dementia. HPI History of Present Illness: Mrs. Lugo is an 84yoF with a history of dementia and atrial fibrillation. She presented with hip pain after a fall. was at bedside and provided history. Fall was ground level and mechanical . She did not hit her head or loose consciousness. She landed on her right side adn was unable to stand or bare weight. In the ED workup revealed right femoral neck fracture. Case was discussed with ED physician oncall and patient will be admitted for further management. This visit was performed using telehealth tools, including phone and live- video. patient provided verbal consent to complete this telemedicine encounter. During the time my interview and evaluation, the patient was located at [facility] in the [facility], I was located in [place]. CONSULTS | PROCEDURES Consultations: Orthopedic Surgery, PT Procedures: Right hip hemiprosthesis, 02/24 Right hip/pelvis XR 02/24 HOSPITAL COURSE Hospital Course: Patient presented with right hip fracture. It was mildly displaced. She was seen by orthopedic surgery and recommended for right Hemiprosthesis. She received this on 02/24. She has had relatively routine healing. No significant blood loss during surgery. Her hemoglobin remained stable in days following her surgery. She had some pain perioperatively that is risk seeded by postoperative day 2. Requiring intermittent Tylenol. Started on ASA 162 mg for VTE prophylaxis Her hospital course has been complicated by some hospital induced delirium, and exacerbation of her underlying dementia. This initially required atypical antipsychotics for agitation. She has not received any olanzapine for the last 3 days prior to discharge. She has been on an increased dose of nightly melatonin to help prevent delirium. Sleeping well at night. Due to her frequent falls at home, and her deconditioning, as well as balance issues related to her Alzheimer's, she has been recommended for discharge for further physical therapy. Their goals are ultimately for her to move into assisted living with her . They have chosen an assisted living where she can mobilize with a scooter, walker, wheelchair if needed. Unfortunately right now she is having trouble with transfers even. Hopefully PT at [facility] can continue to improve her. Finally, she had some postoperative urinary retention. She had a Perdomo catheter in twice during this hospitalization. This last removed on 03/01. She has been voiding somewhat, but had some retention. She has not retained more than 450 cc. She has been able to void on her own. She has been started on tamsulosin and tolerating well. Would continue on tamsulosin, and straight cath if she is retaining greater than 450. Due to her dementia and immobility, would not replace indwelling catheter if can be avoided. ALLERGIES Allergies Allergy/AdvReac Type Severity Reaction Status Date / Time No Known Drug Allergies Allergy Verified 02/24/25 21:59 MEDICATIONS Ambulatory Orders Medication Instructions Recorded Confirmed latanoprost 0.005 % eye drops 1 drp ophthalmic (eye) O NCE 02/23/24 02/25/25 acetaminophen 500 mg tablet 500 - 1,000 mg PO Q6H PRN pain 10/05/24 02/25/25 loperamide 2 mg tablet 2 mg PO Q6H PRN loose stool 10/05/24 02/25/25 calcium 300 mg-D3 20 mcg-magnesium 1 tab PO BID #30 ta bs 10/26/24 02/25/25 25 mg-coppr 0.5 [id number] tablet cholecalciferol (vitamin D3) 50 50 mcg PO QDAY #30 cap s 10/26/24 02/25/25 mcg (2,000 unit) capsule zinc oxide-cod liver oil 40 % 1 applic topical 5XD 10 days #113 11/07/24 02/25/25 topical paste (Desitin) grams memantine 10 mg tablet (Namenda) 10 mg PO BID 12/07/24 02/25/25 dorzolamide 2 % eye drops 1 drp ophthalmic (eye) BID 0 12/31/24 02/25/25 oxycodone 5 mg tablet 2.5 - 5 mg (0.5 - 1 x 5 mg) PO 01/27/25 02/25/25 Q4-6H PRN pain #60 tabs timolol maleate 0.5 % eye drops 1 drp ophthalmic (eye) DAILY 02/25/25 02/25/25 aspirin 81 mg tablet,delayed 162 mg (2 x 81 mg) PO REGINE LY VTE 03/02/25 release Prophylaxis 22 days #44 tabs melatonin 3 mg tablet 6 mg (2 x 3 mg) PO Q24H #60 tabs 03/02/25 tamsulosin 0.4 mg capsule 0.4 mg PO DAILY #30 caps PHYSICAL EXAM AT DISCHARGE Physical Exam Other/Comments: GEN: No acute distress. Sleeping but wakes easily. HEENT: NC/AT, normal appearance of external ears and nose. Hard of hearing at baseline Cardiac: Regular rate and rhythm, no murmurs. Euvolemic generally. Pulm: Lungs CTA bilaterally, no cough, no wheezes. Abdomen: Soft, nontender, nondistended. No rebound or guarding Extremities: Dressing in place to the right lower extremity. Dressings are CDI. No significant bleeding surrounding. No warmth or erythema. Neuro: Face symmetric, CN II through XII intact grossly. Gait exam deferred Psych: Pleasantly demented. Mood euthymic. Affect normal. LABS 02/28/25 08:32 02/26/25 04:53 FOLLOW UP Follow Up: Orthopedic surgery ~03/23 PCP and palliative in the next 2-3 weeks for ongoing care TIME SPENT Time Spent in Discharge (Minutes): 36 Discharge Plan Discharge Patient Disposition: 03 SNF DC/Xfer Condition: Stable Medically Cleared Date:: 03/02/25 Prescriptions: New melatonin 3 mg Tablet 6 mg PO Q24H Qty: 60 0RF Rx Instructions: Administer 2 hours before bedtime (~1900) every night for delirium prevention. aspirin 81 mg Tablet,Delayed Release (Dr/Ec) 162 mg PO DAILY 22 Days Qty: 44 0RF tamsulosin 0.4 mg Capsule 0.4 mg PO DAILY Qty: 30 0RF Continued timolol maleate 0.5 % drops 1 drp ophthalmic (eye) DAILY latanoprost 0.005 % drops 1 drp ophthalmic (eye) ONCE dorzolamide 2 % drops 1 drp ophthalmic (eye) BID Ca carb-D3-mag [id number] 300 mg-20 mcg- 25 mg-0.5 mg tablet 1 tab PO BID Qty: 30 0RF cholecalciferol (vitamin D3) 50 mcg (2,000 unit) capsule 50 mcg PO QDAY Qty: 30 0RF Desitin 40 % paste 1 applic topical 5XD 10 Days Qty: 113 2RF Patient Comments: per : pt not using regularly, but does on occasion memantine [Namenda] 10 mg tablet 10 mg PO BID acetaminophen 500 mg tablet 500 - 1,000 mg PO Q6H PRN (Reason: pain) loperamide 2 mg tablet 2 mg PO Q6H PRN (Reason: loose stool) oxycodone 5 mg tablet 2.5 - 5 mg PO Q4-6H PRN (Reason: pain) Qty: 60 0RF Activity Restrictions: Activity as Tolerated Diet: Regular Health Concerns: You were recently admitted for a fracture to your right hip. This was repaired surgically. Following surgical repair, you have no restrictions to your ambulation. You were seen by physical therapy here, and because of your balance concerns and history of falls, it is advised that you do some further rehab to get stronger to ensure that you can continue to get better at home. You are being recommended to discharge to a long term facility for ongoing rehab. You have been accepted to [facility]. In order to continue to get better, please follow the following instructions. * You may put full weight on your operated leg as tolerated. Early walking and movement are important for your recovery and help prevent complications such as blood clots and pneumonia. * Use a walker, cane, or crutches as needed for balance and safety. * Gradually increase your activity each day. Aim to walk short distances several times daily and progress as you feel comfortable. * If you experience new or worsening pain, inability to bear weight, or loss of function, contact your healthcare provider. * Continue taking prescribed blood thinner, Aspirin in your case, for 4 weeks following surgery * Watch for signs of blood clots: swelling, redness, or pain in your legs, or sudden shortness of breath. Report these symptoms immediately. Pain Management * Take pain medications as prescribed. Good pain control will help you move and participate in physical therapy. * Use ice packs and elevate your leg to reduce swelling as needed. Wound Care * Keep your incision clean and dry. Follow instructions for dressing changes. * Watch for signs of infection: increased redness, swelling, warmth, drainage, or fever. Fall Prevention * Remove tripping hazards at home (loose rugs, clutter). * Use assistive devices as recommended. * Avoid walking on wet or uneven surfaces. Schedule follow-up appointments with your surgeon and primary care provider. Contact your healthcare team if you have any concerns or questions about your recovery. Print Language: Arabic Patient Instructions: Surg Dc Stand Alone Forms: SNF Discharge Follow-up Care: Brooklyn Day ARNP, MSN [Provider Admit Priv/Credential, Palliative Care] Patrick Yarbrough DO [Provider Admit Priv/Credential, Orthopedics] Referral Note: Followup within the next month"
[2025-03-02 15:32] VITALS: O2SAT 99
[2025-03-02 15:35] VITALS: BP 125/71; TEMP 97.9
== END 2025-03-02 15:35 | DRG 536 ==
LOC: ED 21:34 → MS2 21:34 → SUATTDRO 22:54 → MS2 02-25
PROVIDERS: ADMIT Hospitalist; ATTEND Student in an Organized Health Care Education/Training Program
PROC: HEMIHIP (2025-02-25 11:30)
DX: R26.89 Other abnormalities of gait and mobility; R33.9 Retention of urine, unspecified; S72.001A Fracture of unspecified part of neck of right femur, initial encounter for closed fracture; W18.30XA Fall on same level, unspecified, initial encounter; F02.B11 Dementia in other diseases classified elsewhere, moderate, with agitation; F05 Delirium due to known physiological condition; Z91.81 History of falling; G47.33 Obstructive sleep apnea (adult) (pediatric); Z66 Do not resuscitate; R53.1 Weakness; I48.0 Paroxysmal atrial fibrillation; F02.80 Dementia in other diseases classified elsewhere, unspecified severity, without behavioral disturbance, psychotic disturbance, mood disturbance, and anxiety; G30.9 Alzheimer's disease, unspecified; D64.9 Anemia, unspecified

== ENCOUNTER 2025-04-11 20:11 | Inpatient (IN) ==
--- NOTE | 2025-04-11 20:21 | ED Physician Documentation ---
PD HPI ALTERED MENTAL STATUS Stated complaint Stated Complaint: AMS/ Chief complaint Chief Complaint: Neuro History obtained from History obtained from: Patient, EMS and Caregiver (Patient with history of some dementia but typically coherent sentences just poor memory. She is confused and rambling and restless today. No noted fevers.) History of Present Illness Timing - onset: Today Timing - duration: Days Timing - details: Abrupt onset (The output from her Perdomo catheter is thick and purulent noted as of today.) Quality / character: Confused and Agitated Associated symptoms: No Fever, Dyspnea, Cough or NVD Basline status: Disoriented (alzheimers dementia) and [facility] facility Meds/Allgy Home Medications Ambulatory Orders Medication Instructions Recorded Confirmed latanoprost 0.005 % eye drops 1 drp ophthalmic (eye) O NCE 02/23/24 02/25/25 acetaminophen 500 mg tablet 500 - 1,000 mg PO Q6H PRN pain 10/05/24 02/25/25 loperamide 2 mg tablet 2 mg PO Q6H PRN loose stool 10/05/24 02/25/25 calcium 300 mg-D3 20 mcg-magnesium 1 tab PO BID #30 ta bs 10/26/24 02/25/25 25 mg-coppr 0.5 [id number] tablet cholecalciferol (vitamin D3) 50 50 mcg PO QDAY #30 cap s 10/26/24 02/25/25 mcg (2,000 unit) capsule zinc oxide-cod liver oil 40 % 1 applic topical 5XD 10 days #113 11/07/24 02/25/25 topical paste (Desitin) grams memantine 10 mg tablet (Namenda) 10 mg PO BID 12/07/24 02/25/25 dorzolamide 2 % eye drops 1 drp ophthalmic (eye) BID 0 12/31/24 02/25/25 oxycodone 5 mg tablet 2.5 - 5 mg (0.5 - 1 x 5 mg) PO 01/27/25 02/25/25 Q4-6H PRN pain #60 tabs timolol maleate 0.5 % eye drops 1 drp ophthalmic (eye) DAILY 02/25/25 02/25/25 aspirin 81 mg tablet,delayed 162 mg (2 x 81 mg) PO REGINE LY VTE 03/02/25 release Prophylaxis 22 days #44 tabs melatonin 3 mg tablet 6 mg (2 x 3 mg) PO Q24H #60 tabs 03/02/25 tamsulosin 0.4 mg capsule 0.4 mg PO DAILY #30 caps cephalexin 500 mg capsule 500 mg PO TID 5 days #15 cap s 03/11/25 Allergies Allergies Allergy/AdvReac Type Severity Reaction Status Date / Time No Known Drug Allergies Allergy Verified 03/03/25 14:06 PFSH Active Problems All Active Problems (Updated 04/11/25 @ 22:56 by Ravi Mcghee MD) Chronic indwelling Perdomo catheter (Acute) Acute UTI (Acute) Leukocytosis (Acute) Acute alteration in mental status (Acute) Post-op bleeding (Acute) Hematoma, postoperative (Acute) Post-operative state (Acute) Bleeding from surgical wound (Acute) Anemia (Chronic) Urinary retention (Acute) Venous stasis of lower extremity (Chronic) Headache (Chronic) Left knee pain (Chronic) Vulvovaginal pain (Acute) Vaginitis (Acute) Cystitis (Acute) Dysuria (Acute) Caregiver reluctant to provide care (Chronic) Prediabetes (Chronic) Dyslipidemia (Chronic) Osteopenia (Chronic) History of bariatric surgery (Chronic) ESPINOZA (obstructive sleep apnea) (Chronic) Impairment of balance (Chronic) Glaucoma (Chronic) Paroxysmal atrial fibrillation (Chronic) Chronic thoracic back pain (Chronic) History of acoustic neuroma (Chronic) Migraine headache without aura (Chronic) Complaint of fatigable weakness (Acute) Alzheimer's dementia (Chronic) Medical History Medical History Urinary tract infection Dyspnea Surgical History Surgical History Partial traumatic transphalangeal amputation of thumb Hx of hemorrhoidectomy History of hysterectomy (~1978) History of carpal tunnel release S/P knee replacement (~2008) Right History of cholecystectomy (~1984) Status post stereotactic radiosurgery (~2010) L acoustic neuroma History of sleeve gastrectomy (~2017) with hiatal hernia repair Family History Family History Sister Alzheimers disease Father CAD (coronary artery disease) Heart attack Alcoholism Social History Social History Smoking Status: Never smoker Second hand tobacco smoke exposure: No Do you dip or chew tobacco?: No Do you vape?: No Patient requests smoking cessation consult: No Initiate information on smoking cessation: No Living arrangement: At home Marital Status: Living Condition: With spouse/s.o. 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, worked in [employer] Retired: Yes POLST Patient has POLST: Yes POLST CPR Status: Do Not Attempt Resuscitation (DNAR) / Allow Natural Exam Exam Vital Signs: Vital Signs x48h Pulse Resp BP Pulse Ox 04/11/25 20:14 117 H 23 138/89 H 96 Constitutional normal general appearance, distress noted (mild) (fidgety and restless, but pleasant.) and average body habitus HENMT oropharynx normal Neck/C-Spine supple and no meningeal signs Lymph no lymphadenopathy noted Respiratory normal respiratory effort, clear to auscultation bilaterally, no wheezes and no rales Cardiovascular normal heart rate noted, regular rhythm noted and no edema Gastrointestinal abdomen soft to palpation and tender to palpation (moderate), (periumbilical) and (suprapubic) Genitourinary CVA tenderness noted (some toward right) Perdmoo catheter in place and is draining a very cloudy thick or yellow to white urine. Extremities no tenderness and full ROM Neurology no focal motor deficit noted and no sensory deficits noted Psychiatry mental status abnormal (somnolent), orientation abnormal (disoriented to place) and (disoriented to time), thought process abnormality noted (confused), affect normal and psychomotor abnormality noted (restless) Skin skin color normal Results Vitals Vitals: Vital Signs - 24 hr 04/11/25 20:14 04/11/25 20:18 04/11/25 21:22 Pulse Rate 117 H Respiratory Rate 23 Blood Pressure 138/89 H O2 Saturation 96 Oxygen Delivery Method Room Air O2 Source Room air Pain Intensity 6 8 Oxygen O2 Source Room air Labs Labs: Laboratory Tests 04/11/25 04/11/25 04/11/25 20:43 20:57 21:20 WBC 13.5 H RBC 4.09 L Hgb 11.6 L Hct 38.5 MCV 94.1 MCH 28.4 MCHC 30.1 L RDW 14.6 Plt Count 411 MPV 9.8 Neut # (Auto) 9.8 H Lymph # (Auto) 2.9 Bureau # (Auto) 0.6 Eos # (Auto) 0.0 Baso # (Auto) 0.1 Absolute Nucleated RBC 0.02 Nucleated RBC % 0.1 Sodium 143 Potassium 3.7 Chloride 109 Carbon Dioxide 23 Anion Gap 11.0 BUN 18 Creatinine 0.9 Estimated GFR (MDRD) 60 L Glucose 103 Lactic Acid 1.4 Calcium 8.5 Magnesium 1.9 Total Bilirubin 0.6 AST 16 ALT 7 L Alkaline Phosphatase 72 Total Protein 6.7 Albumin 3.0 L Globulin 3.7 Albumin/Globulin Ratio 0.8 L Lipase 13 Urine Color Urine Clarity Urine pH Ur Specific Mcfall Urine Protein Urine Glucose (UA) Urine Ketones Urine Occult Blood Urine Nitrite Urine Bilirubin Urine Urobilinogen Ur Leukocyte Esterase Urine RBC Urine WBC Ur Squamous Epith Cells Urine Crystals Urine Bacteria Urine Mucus Ur Microscopic Review Urine Culture Comments 04/11/25 21:50 WBC RBC Hgb Hct MCV MCH MCHC RDW Plt Count MPV Neut # (Auto) Lymph # (Auto) Bureau # (Auto) Eos # (Auto) Baso # (Auto) Absolute Nucleated RBC Nucleated RBC % Sodium Potassium Chloride Carbon Dioxide Anion Gap BUN Creatinine Estimated GFR (MDRD) Glucose Lactic Acid Calcium Magnesium Total Bilirubin AST ALT Alkaline Phosphatase Total Protein Albumin Globulin Albumin/Globulin Ratio Lipase Urine Color YELLOW Urine Clarity TURBID Urine pH 8.5 H Ur Specific Mcfall 1.005 Urine Protein 300 H Urine Glucose (UA) NEGATIVE Urine Ketones 15 H Urine Occult Blood SMALL Urine Nitrite NEGATIVE Urine Bilirubin NEGATIVE Urine Urobilinogen 0.2 (NORMAL) Ur Leukocyte Esterase LARGE H Urine RBC 6-10 H Urine WBC >25 H Ur Squamous Epith Cells NONE SEEN Urine Crystals >50 Triple Phos Urine Bacteria Many H Urine Mucus Marked Strands Ur Microscopic Review INDICATED Urine Culture Comments INDICATED PD Medical Decision Making ED course Complexity details: other (Report from EMS as related to them by her caregivers at [facility]: She has been less alert and more confused and restless today. No fevers. No obvious cold symptoms. Her urine output put from the Perdomo is abruptly cloudier.) ED course: No fever. She does have an elevated white count. Lactate is normal at 1.4. She does have altered mental status from her baseline dementia per staff and does seem confused and restless here with somewhat nonsensical answers to questions and not just seeming poor memory. She is able to follow some commands for offal trimmer and movement. She answers some questions starting off with a normal sentence and then devolving to nonsensical. She does not look septic but does seem to be having secondary symptoms related to likely UTI. No other obvious cause. She did have tenderness in lower abdomen and we did do a CT scan. I thought the bladder looked relatively full for having a Perdomo in place so there may be some partial clogging. No other acute abnormality identified on the scan. Given altered mentation with UTI and elevated white count, she may benefit from initial dosing with IV antibiotics and fluids as she reportedly was not taking oral food or fluids today either. Discharge Plan Discharge Patient Disposition: 66 [facility] DC/Xfer Condition: Stable Clinical Impression: Acute alteration in mental status, Acute UTI, Chronic indwelling Perdomo catheter Leukocytosis Qualifiers: Leukocytosis type: unspecified Qualified Code(s): D72.829 - Elevated white blood cell count, unspecified Alzheimer's dementia Qualifiers: Alzheimer's disease onset: unspecified onset Dementia severity: moderate Dementia behavioral or psychological symptom: with agitation Qualified Code(s): G30.9 - Alzheimer's disease, unspecified
--- OUTSIDE RECORDS SUMMARY | 2025-04-11 20:54 | EXTERNAL MEDICAL SUMMARY RPT | Continuity of Care Document ---
Author Organization [place] Address [address] [place], [place] [address]te [address] [place] [id number] Phone Problems date description facility 2025-01-30 13:11 Dementia in other di seases classified elsewhere, moderate, without behavioral disturbance, psychotic disturbance, mood disturbance, and anxiety [facility] 2025-01-30 13:11 Alzheimer's disease, unspecifie d [facility] 2025-01-30 13:11 [facility] 2025-01-30 13:11 Other specified disorders of ve ins [facility] 2025-01-30 13:11 Pain in thoracic spine [facility] 2025-01-30 13:11 Other abnormalities of gait and mobility [facility] 2025-01-30 13:11 Dysuria [facility] 2025-01-30 13:11 [facility] 13:11 Other specified counseling [facility] 2025-01-30 13:11 Personal history of other benig n neoplasm [facility] 2025-02-16 13:00 [facility] 2025-02-24 22:40 Fracture of unspecif ied part of neck of right femur, initial encounter for closed fracture [facility] 2025-02-24 22:43 Fracture of unspecif ied part of neck of right femur, initial encounter for closed fracture [facility] 2025-02-24 22:56 Fracture of unspecif ied part of neck of right femur, initial encounter for closed fracture [facility] 2025-02-25 00:06 Obstructive sleep apnea (adult) (pediatric) [facility] 2025-02-25 00:06 Paroxysmal atrial fibrillation [facility] 2025-02-25 00:06 Fracture of unspecif ied part of neck of right femur, initial encounter for closed fracture [facility] 2025-02-25 00:07 Obstructive sleep apnea (adult) (pediatric) [facility] 2025-02-25 00:07 Paroxysmal atrial fibrillation [facility] 2025-02-25 00:07 Fracture of unspecif ied part of neck of right femur, initial encounter for closed fracture [facility] 2025-02-25 00:51 Obstructive sleep apnea (adult) (pediatric) [facility] 2025-02-25 00:51 Paroxysmal atrial fibrillation [facility] 2025-02-25 00:51 Fracture of unspecif ied part of neck of right femur, initial encounter for closed fracture [facility] 2025-02-25 01:08 Obstructive sleep apnea (adult) (pediatric) [facility] 2025-02-25 01:08 Paroxysmal atrial fibrillation [facility] 2025-02-25 01:08 Fracture of unspecif ied part of neck of right femur, initial encounter for closed fracture [facility] 2025-02-25 06:53 Obstructive sleep apnea (adult) (pediatric) [facility] 2025-02-25 06:53 Paroxysmal atrial fibrillation [facility] 2025-02-25 06:53 Fracture of unspecif ied part of neck of right femur, initial encounter for closed fracture [facility] 2025-02-25 08:18 Obstructive sleep apnea (adult) (pediatric) [facility] 2025-02-25 08:18 Paroxysmal atrial fibrillation [facility] 2025-02-25 08:18 Fracture of unspecif ied part of neck of right femur, initial encounter for closed fracture [facility] 2025-02-25 08:29 Obstructive sleep apnea (adult) (pediatric) [facility] 2025-02-25 08:29 Paroxysmal atrial fibrillation [facility] 2025-02-25 08:29 Fracture of unspecif ied part of neck of right femur, initial encounter for closed fracture [facility] 2025-02-25 09:24 Obstructive sleep apnea (adult) (pediatric) [facility] 2025-02-25 09:24 Paroxysmal atrial fibrillation [facility] 2025-02-25 09:24 Fracture of unspecif ied part of neck of right femur, initial encounter for closed fracture [facility] 2025-02-25 14:27 Obstructive sleep apnea (adult) (pediatric) [facility] 2025-02-25 14:27 Paroxysmal atrial fibrillation [facility] 2025-02-25 14:27 Fracture of unspecif ied part of neck of right femur, initial encounter for closed fracture [facility] 2025-02-25 14:49 Obstructive sleep apnea (adult) (pediatric) [facility] 2025-02-25 14:49 Paroxysmal atrial fibrillation [facility] 2025-02-25 14:49 Fracture of unspecif ied part of neck of right femur, initial encounter for closed fracture [facility] 2025-02-26 12:00 Anemia, unspecified [facility] 2025-02-26 12:00 Dementia in other di seases classified elsewhere, moderate, without behavioral disturbance, psychotic disturbance, mood disturbance, and anxiety [facility] 2025-02-26 12:00 Alzheimer's disease, unspecifie d [facility] 2025-02-26 12:00 Obstructive sleep apnea (adult) (pediatric) [facility] 2025-02-26 12:00 Paroxysmal atrial fibrillation [facility] 2025-02-26 12:00 Retention of urine, unspecified [employer] 2025-02-26 12:00 Fracture of unspecif ied part of neck of right femur, initial encounter for closed fracture [facility] 2025-02-26 13:16 Anemia, unspecified [place] 2025-02-26 13:16 Dementia in other di seases classified elsewhere, moderate, without behavioral disturbance, psychotic disturbance, mood disturbance, and anxiety [facility] 2025-02-26 13:16 Alzheimer's disease, unspecifie d [facility] 2025-02-26 13:16 Obstructive sleep apnea (adult) (pediatric) [facility] 2025-02-26 13:16 Paroxysmal atrial fibrillation [facility] 2025-02-26 13:16 Retention of urine, unspecified [facility] 2025-02-26 13:16 Fracture of unspecif ied part of neck of right femur, initial encounter for closed fracture [employer] 2025-02-26 13:46 Anemia, unspecified [facility] 2025-02-26 13:46 Dementia in other di seases classified elsewhere, moderate, without behavioral disturbance, psychotic disturbance, mood disturbance, and anxiety [facility] 2025-02-26 13:46 Alzheimer's disease, unspecifie d [facility] 2025-02-26 13:46 Obstructive sleep apnea (adult) (pediatric) [facility] 2025-02-26 13:46 Paroxysmal atrial fibrillation [facility] 2025-02-26 13:46 Retention of urine, unspecified [facility] 2025-02-26 13:46 Fracture of unspecif ied part of neck of right femur, initial encounter for closed fracture [facility] 2025-02-27 12:33 Anemia, unspecified henokbey [facility] 2025-02-27 12:33 Dementia in other di seases classified elsewhere, moderate, without behavioral disturbance, psychotic disturbance, mood disturbance, and anxiety [facility] 2025-02-27 12:33 Alzheimer's disease, unspecifie d [facility] 2025-02-27 12:33 Obstructive sleep apnea (adult) (pediatric) [facility] 2025-02-27 12:33 Paroxysmal atrial fibrillation [facility] 2025-02-27 12:33 Retention of urine, unspecified [facility] 2025-02-27 12:33 Fracture of unspecif ied part of neck of right femur, initial encounter for closed fracture [employer] 2025-03-02 11:13 Anemia, unspecified henok[facility] 2025-03-02 11:13 Dementia in other di seases classified elsewhere, moderate, without behavioral disturbance, psychotic disturbance, mood disturbance, and anxiety [facility] 2025-03-02 11:13 Dementia in other di seases classified elsewhere, moderate, with agitation [facility] 2025-03-02 11:13 Alzheimer's disease, unspecifie d [facility] 2025-03-02 11:13 Obstructive sleep apnea (adult) (pediatric) [facility] 2025-03-02 11:13 Paroxysmal atrial fibrillation [facility] 2025-03-02 11:13 Retention of urine, unspecified [employer] 2025-03-02 11:13 Fracture of unspecif ied part of neck of right femur, initial encounter for closed fracture [employer] 2025-03-02 11:20 Anemia, unspecified [place] [facility] 2025-03-02 11:20 Dementia in other di seases classified elsewhere, moderate, without behavioral disturbance, psychotic disturbance, mood disturbance, and anxiety [facility] 2025-03-02 11:20 Dementia in other di seases classified elsewhere, moderate, with agitation [facility] 2025-03-02 11:20 Alzheimer's disease, unspecifie d [facility] 2025-03-02 11:20 Obstructive sleep apnea (adult) (pediatric) [facility] 2025-03-02 11:20 Paroxysmal atrial fibrillation [facility] 2025-03-02 11:20 Retention of urine, unspecified [facility] 2025-03-02 11:20 Fracture of unspecif ied part of neck of right femur, initial encounter for closed fracture [employer] 2025-03-02 15:58 Anemia, unspecified id[facility] 2025-03-02 15:58 Dementia in other di seases classified elsewhere, moderate, without behavioral disturbance, psychotic disturbance, mood disturbance, and anxiety [employer] 2025-03-02 15:58 Dementia in other di seases classified elsewhere, moderate, with agitation [facility] 2025-03-02 15:58 Alzheimer's disease, unspecifie d [employer] 2025-03-02 15:58 Obstructive sleep apnea (adult) (pediatric) [facility] 2025-03-02 15:58 Paroxysmal atrial fibrillation [facility] 2025-03-02 15:58 Retention of urine, unspecified [employer] 2025-03-02 15:58 Fracture of unspecif ied part of neck of right femur, initial encounter for closed fracture [employer] 2025-03-02 15:59 Anemia, unspecified id[facility] 2025-03-02 15:59 Dementia in other di seases classified elsewhere, moderate, without behavioral disturbance, psychotic disturbance, mood disturbance, and anxiety [employer] 2025-03-02 15:59 Dementia in other di seases classified elsewhere, moderate, with agitation [employer] 2025-03-02 15:59 Alzheimer's disease, unspecifie d [facility] 2025-03-02 15:59 Obstructive sleep apnea (adult) (pediatric) [facility] 2025-03-02 15:59 Paroxysmal atrial fibrillation [facility] 2025-03-02 15:59 Retention of urine, unspecified [employer] 2025-03-02 15:59 Fracture of unspecif ied part of neck of right femur, initial encounter for closed fracture [employer] 2025-03-03 14:06 Anemia, unspecified [facility] 2025-03-03 14:06 Dementia in other di seases classified elsewhere, moderate, without behavioral disturbance, psychotic disturbance, mood disturbance, and anxiety [employer] 2025-03-03 14:06 Dementia in other di seases classified elsewhere, moderate, with agitation [employer] 2025-03-03 14:06 Alzheimer's disease, unspecifie d [employer] 2025-03-03 14:06 Obstructive sleep apnea (adult) (pediatric) [facility] 2025-03-03 14:06 Paroxysmal atrial fibrillation [employer] 2025-03-03 14:06 Retention of urine, unspecified [employer] 2025-03-03 14:06 Fracture of unspecif ied part of neck of right femur, initial encounter for closed fracture [employer] 2025-03-04 08:03 Other specified inju daisy of right hip, initial encounter [employer] 2025-03-04 14:55 Anemia, unspecified [facility] 2025-03-04 14:55 Dementia in other di seases classified elsewhere, moderate, without behavioral disturbance, psychotic disturbance, mood disturbance, and anxiety [employer] 2025-03-04 14:55 Dementia in other di seases classified elsewhere, moderate, with agitation [facility] 2025-03-04 14:55 Alzheimer's disease, unspecifie d [employer] 2025-03-04 14:55 Obstructive sleep apnea (adult) (pediatric) [employer] 2025-03-04 14:55 Paroxysmal atrial fibrillation [employer] 2025-03-04 14:55 [facility] 14:55 Retention of urine, unspecified [facility] 2025-03-04 14:55 Fracture of unspecif ied part of neck of right femur, initial encounter for closed fracture [facility] 2025-03-04 14:55 Unspecified injury of right hip , initial encounter [facility] 2025-03-04 15:34 Anemia, unspecified [facility] 2025-03-04 15:34 Dementia in other di seases classified elsewhere, moderate, without behavioral disturbance, psychotic disturbance, mood disturbance, and anxiety [facility] 2025-03-04 15:34 Dementia in other di seases classified elsewhere, moderate, with agitation [facility] 2025-03-04 15:34 Alzheimer's disease, unspecifie d [facility] 2025-03-04 15:34 Obstructive sleep apnea (adult) (pediatric) [facility] 2025-03-04 15:34 Paroxysmal atrial fibrillation [facility] 2025-03-04 15:34 [facility] in right hip [facility] 2025-03-04 15:34 Retention of urine, unspecified [facility] 2025-03-04 15:34 Fracture of unspecif ied part of neck of right femur, initial encounter for closed fracture [facility] 2025-03-04 15:34 Unspecified injury of right hip , initial encounter [facility] 2025-03-05 10:23 Postprocedural hemor rhage of skin and subcutaneous tissue following other procedure [facility] 2025-03-07 12:34 Urinary tract infection, site n ot specified [facility] 2025-03-09 08:13 Urinary tract infection, site n ot specified [facility] 2025-03-09 12:32 Other specified postprocedural states [facility] 2025-03-11 13:49 Bed confinement status [facility] 2025-03-11 13:58 Postprocedural hemor rhage of skin and subcutaneous tissue following other procedure [facility] 2025-03-11 14:02 Fracture of unspecif ied part of neck of right femur, subsequent encounter for closed fracture with routine healing [employer] 2025-03-16 13:21 Postprocedural hemor rhage of skin and subcutaneous tissue following other procedure [employer] 2025-03-18 10:48 Postprocedural hemat jovita of skin and subcutaneous tissue following other procedure [employer] 2025-03-20 10:19 Hemorrhage, not elsewhere class ified [employer] 2025-03-25 15:35 [facility]25-[facility] 12:15 Urinary tract infection, site n ot specified [employer] 2025-04-08 12:40 Unspecified infectious disease [facility] 2025-04-08 12:49 Urinary tract infection, site n ot specified [employer] 2025-04-08 12:50 Urinary tract infection, site n ot specified [employer] 2025-04-09 00:05 Unspecified infectious disease [employer] Results/Labs test date facility value unit notes Result panel 1 NUCLEATED RED BLOOD CELLS AUTO 2025-02-24 21:46 [employer] 0.0 /100wbc (missing) BASOPHILS # (AUTO) 2025-02-24 21:46 [employer] 0.0 10 3/ul (missing) NRBC ABSOLUTE COUNT (AUTO) 2025-02-24 21:46 [employer] 0.00 x10 3/ul (missing) EOSINOPHILS # (AUTO) 2025-02-24 21:46 [employer] 0.1 10 3/ul (missing) MONOCYTES # (AUTO) 2025-02-24 21:46 [facility] 0.4 10 3/ul (missing) BILIRUBIN,TOTAL 2025-02-24 21:46 [facility] 0.5 mg/dl As of November 2022 testing method has changed, this may include reference ranges. CREATININE 2025-02-24 21:46 [facility] 0.8 mg/dl As of November 2022 testing method has changed, this may include reference ranges. ALBUMIN/GLOBULIN RATIO 2025-02-24 21:46 [employer] 1.6 (missing) (missing) LYMPHOCYTES # (AUTO) 2025-02-24 21:46 [employer] 1.9 10 3/ul (missing) MEAN PLATELET VOLUME 2025-02-24 21:46 [employer] [facility] 10.4 fl (missing) CHLORIDE 2025-02-24 21:46 [facility] 105 mmol/l As of November 2022 testing method has changed, this may include reference ranges. HGB - HEMOGLOBIN 2025-02-24 21:46 [employer] [facility] 12.9 g/dl (missing) RED CELL DISTRIBUTION WIDTH 2025-02-24 21:46 [facility] 13.6 % (missing) SODIUM 2025-02-24 21:46 [facility] 140 mmol/l (missing) PLT - PLATELET COUNT 2025-02-24 21:46 [facility] 163 10 3/ul (missing) ALT ALANINE AMINOTRANSFERASE 2025-02-24 21:46 [facility] 18 iu/l As of November 2022 testing method has changed, this may include reference ranges. GLOBULIN 2025-02-24 21:46 [employer] 2.8 g/dl (missing) AST ASPARTATE AMINOTRANSFERASE 2025-02-24 21:46 [employer] 21 iu/l As of November 2022 testing method has changed, this may include reference ranges. BUN - BLOOD UREA NITROGEN 2025-02-24 21:46 [employer] 22 mg/dl As of November 2022 testing method has changed, this may include reference ranges. CARBON DIOXIDE - CO2 2025-02-24 21:46 [facility] 27 mmol/l As of November 2022 testing method has changed, this may include reference ranges. POTASSIUM 2025-02-24 21:46 [employer] 3.9 mmol/l As of November 2022 testing method has changed, this may include reference ranges. MEAN CORPUSCULAR HEMOGLOBIN 2025-02-24 21:46 [employer] 30.8 pg (missing) MEAN CORPUSCULAR HGB CONC 2025-02-24 21:46 [employer] 32.4 g/dl (missing) HCT - HEMATOCRIT 2025-02-24 21:46 [employer] 39.8 % (missing) NEUTROPHILS # (AUTO) 2025-02-24 21:46 [employer] 4.0 10 3/ul (missing) RED BLOOD COUNT 2025-02-24 21:46 [employer] 4.19 10 6/ul (missing) ALBUMIN 2025-02-24 21:46 [facility] 4.5 g/dl As of November 2022 testing method has changed, this may include reference ranges. ALKALINE PHOSPHATASE 2025-02-24 21:46 [employer] 49 iu/l As of November 2022 testing method has changed, this may include reference ranges. WHITE BLOOD COUNT 2025-02-24 21:46 [employer] 6.5 x10 3/ul (missing) GFR - MDRD 2025-02-24 21:46 [employer] 68 (missing) The IDMS-traceable MDRD Study Equation [...] updated July 2011. TOTAL PROTEIN 2025-02-24 21:46 [employer] 7.3 g/dl As of November 2022 testing method has changed, this may include reference ranges. ANION GAP 2025-02-24 21:46 [employer] 8.0 (missing) (missing) CALCIUM 2025-02-24 21:46 [employer] 9.9 mg/dl As of November 2022 testing method has changed, this may include reference ranges. MEAN CORPUSCULAR VOLUME 2025-02-24 21:46 [employer] 95.0 fl (missing) GLUCOSE 2025-02-24 21:46 [employer] 99 mg/dl As of November 2022 testing method has changed, this may include reference ranges. Result panel 2 NUCLEATED RED BLOOD CELLS AUTO 2025-02-25 06:28 [employer] 0.0 /100wbc (missing) BASOPHILS # (AUTO) 2025-02-25 06:28 [employer] 0.0 10 3/ul (missing) EOSINOPHILS # (AUTO) 2025-02-25 06:28 [facility] 0.0 10 3/ul (missing) NRBC ABSOLUTE COUNT (AUTO) 2025-02-25 06:28 [facility] 0.00 x10 3/ul (missing) MONOCYTES # (AUTO) 2025-02-25 06:28 [facility] [facility] 0.5 10 3/ul (missing) CREATININE 2025-02-25 06:28 [facility] 0.7 mg/dl As of November 2022 testing method has changed, this may include reference ranges. LYMPHOCYTES # (AUTO) 2025-02-25 06:28 [facility] 0.8 10 3/ul (missing) MEAN PLATELET VOLUME 2025-02-25 06: [employer] 10.4 fl (missing) CHLORIDE 2025-02-25 06:28 [facility] 107 mmol/l As of November 2022 testing method has changed, this may include reference ranges. HGB - HEMOGLOBIN 2025-02-25: [employer] 11.3 g /dl (missing) RED CELL DISTRIBUTION WIDTH 2025-02-25 06:28 [employer] 13.5 % (mi ssing) GLUCOSE 2025-02-25: [facility] 132 mg/dl As of November 2022 testing method has changed, this may include reference ranges. SODIUM 2025-02-25:28 [employer] [facility] 139 mmol/l (missing) PLT - PLATELET COUNT 2025-02-25 06:28 [employer] 141 10 3/ul (missing) BUN - BLOOD UREA NITROGEN 2025-02-25:28 [employer] 21 mg/dl As of Nov testing method has changed, this may include reference ranges. CARBON DIOXIDE - CO2 2025-02-25: [facility] 27 mmol/l As of November 2022 testing method has changed, this may include reference ranges. RED BLOOD COUNT 2025-02-25:28 [employer] 3.70 10 6/ul (missing) POTASSIUM 2025-02-25:28 [employer] 3.8 mmol/l As of November 2022 testing method has changed, this may include reference ranges. MEAN CORPUSCULAR HEMOGLOBIN 2025-02-25 06:28 [employer] 30.5 pg (missing) MEAN CORPUSCULAR HGB CONC 2025-02-25 06:28 [employer] 32.0 g/dl (missing) HCT - HEMATOCRIT 2025-02-25 06:28 [employer] 35.3 % (missing) ANION GAP 2025-02-25 06:28 [employer] 5.0 (missing ) (missing) NEUTROPHILS # (AUTO) 2025-02-25 06:28 [facility] 7.5 10 3/ul (missing) CALCIUM 2025-02-25 06:28 [facility] 8.5 mg/dl As of November 2022 testing method has changed, this may include reference ranges. WHITE BLOOD COUNT 2025-02-25 06:28 [facility] 8.8 x10 3/ul (missing) GFR - MDRD 2025-02-25 06:28 [facility] 80 (missin g) The IDMS-traceable MDRD Study Equation has been [...] caring for patients older than 70. References: http://www.nkdep.n ih.gov/lab-evaluat ion/gfr/creatinine -stand ardization, last updated July 2011. MEAN CORPUSCULAR VOLUME 2025-02-25 06:28 [facility] 95.4 fl (missing) Result panel 3 CREATININE 2025-02-26 04:53 [facility] 0.6 mg/dl As of November 2022 testing method has changed, this may include reference ranges. MEAN PLATELET VOLUME 2025-02-26 04:53 [facility] 10.5 fl (missing) CHLORIDE 2025-02-26 04:53 [facility] 106 mmol/l As of November 2022 testing method has changed, this may include reference ranges. RED CELL DISTRIBUTION WIDTH 2025-02-26 04:53 [facility] 13.8 % (mi ssing) GLUCOSE 2025-02-26 04:53 [facility] 137 mg/dl As of November 2022 testing method has changed, this may include reference ranges. SODIUM 2025-02-26 04:53 [facility] 139 mmol/l (missing) PLT - PLATELET COUNT 2025-02-26 04:53 [facility] 140 10 3/ul (missing) BUN - BLOOD UREA NITROGEN 2025-02-26 04:53 [facility] 18 mg/dl As of Nov testing method has changed, this may include reference ranges. CARBON DIOXIDE - CO2 2025-02-26 04:53 [facility] 27 mmol/l As of November 2022 testing method has changed, this may include reference ranges. HCT - HEMATOCRIT 2025-02-26 04:53 [facility] 29.4 % (missing) RED BLOOD COUNT 2025-02-26 04:53 [facility] 3.02 10 6/ul (missing) POTASSIUM 2025-02-26 04:53 [facility] 3.6 mmol/l As of November 2022 testing method has changed, this may include reference ranges. MEAN CORPUSCULAR HEMOGLOBIN 2025-02-26 04:53 [facility] 30.8 pg (missing) MEAN CORPUSCULAR HGB CONC 2025-02-26 04:53 [facility] 31.6 g/dl (missing) ANION GAP 2025-02-26 04:53 [facility] 6.0 (missing ) (missing) WHITE BLOOD COUNT 2025-02-26 04:53 [facility] 7.4 x10 3/ul (missing) CALCIUM 2025-02-26 04:53 [facility] 8.3 mg/dl As of November 2022 testing method has changed, this may include reference ranges. HGB - HEMOGLOBIN 2025-02-26 04:53 [facility] 9.3 g /dl (missing) GFR - MDRD 2025-02-26 04:53 [facility] 95 (missin g) The IDMS-traceable MDRD Study Equation has been [...] caring for patients older than 70. References: http://www.nkdep.n ih.gov/lab-evaluat ion/gfr/creatinine -stand ardization, last updated July 2011. MEAN CORPUSCULAR VOLUME 2025-02-26 04:53 [facility] 97.4 fl (missing) Result panel 4 NUCLEATED RED BLOOD CELLS AUTO 2025-02-28 08:32 [facility] 0.0 /100wbc (missing) BASOPHILS # (AUTO) 2025-02-28 08:32 [facility] 0.0 10 3/ul (missing) NRBC ABSOLUTE COUNT (AUTO) 2025-02-28 08:32 [facility] 0 .00 x10 3/ul (missing) EOSINOPHILS # (AUTO) 2025-02-28 08:32 [facility] 0.3 10 3/ul (missing) MONOCYTES # (AUTO) 2025-02-28 08:32 [facility] 0.6 10 3/ul (missing) LYMPHOCYTES # (AUTO) 2025-02-28 08:32 [facility] 1.3 10 3/ul (missing) MEAN PLATELET VOLUME 2025-02-28 08:32 [facility] 10.8 fl (missing) RED CELL DISTRIBUTION WIDTH 2025-02-28 08:32 [facility] 13.3 % (missing) PLT - PLATELET COUNT 2025-02-28 08:32 [facility] 160 10 3/ul (missing) RED BLOOD COUNT 2025-02-28 08:32 [facility] 3.17 10 6/ul (missing) HCT - HEMATOCRIT 2025-02-28 08:32 [facility] 30.6 % (missing) MEAN CORPUSCULAR HEMOGLOBIN 2025-02-28 08:32 [facility] 30.6 pg (missing) MEAN CORPUSCULAR HGB CONC 2025-02-28 08:32 [facility] 31 .7 g/dl (missing) NEUTROPHILS # (AUTO) 2025-02-28 08:32 [facility] 5.9 10 3/ul (missing) WHITE BLOOD COUNT 2025-02-28 08:32 [facility] 8.1 x10 3/ul (missing) HGB - HEMOGLOBIN 2025-02-28 08:32 [facility] 9.7 g /dl (missing) MEAN CORPUSCULAR VOLUME 2025-02-28 08:32 [facility] 96.5 fl (missing) Result panel 5 GENTAMICIN 500 2025-03-07 12:10 [facility] (missing) (missing) (missing) STREPTOMYCIN 2000 2025-03-07 12:10 [facility] (missing) (missing) (missing) VANCOMYCIN 2025-03-07 12:10 [facility] (missing) (missing) (missing) WBC,URINE 2025-03-07 12:10 [facility] >25 /hpf (missing) CEFEPIME 2025-03-07 12:10 [facility] <=0.12 (missing) (missing) ERTAPENEM 2025-03-07 12:10 [facility] <=0.12 (missing) (missing) LEVOFLOXACIN 2025-03-07 12:10 [facility] <=0.12 (missing) (missing) CEFTRIAXONE 2025-03-07 12:10 [facility] <=0.25 (missing) (missing) CIPROFLOXACIN 2025-03-07 12:10 [facility] <=0.25 (missing) (missing) IMIPENEM 2025-03-07 12:10 [facility] <=0.25 (missing) (missing) GENTAMICIN 2025-03-07 12:10 [facility] <=1 (missing) (missing) TETRACYCLINE 2025-03-07 12:10 [facility] <=1 (missing) (missing) TOBRAMYCIN 2025-03-07 12:10 [facility] <=1 (missing) (missing) NITROFURANTOIN 2025-03-07 12:10 [facility] <=16 (missing) (missing) AMPICILLIN 2025-03-07 12:10 [facility] <=2 (missing) (missing) AMPICILLIN/SULBA CTAM 2025-03-07 12:10 [facility] <=2 (missing) (missing) AMPICILLIN 2025-03-07 12:10 [facility] <=2 (missing) This organism is NEGATIVE for Extended Spectrum Beta Lactamase TRIMETHOPRIM/SUL FAMETHOXAZOLE 2025-03-07 12:10 [facility] <=20 (missing) (missing) CEFAZOLIN 2025-03-07 12:10 [facility] <=4 (missing) (missing) RBC,URINE 2025-03-07 12:10 [facility] 0-5 /hpf (missing) UROBILINOGEN,URI NE 2025-03-07 12:10 [facility] 0.2 (NORMAL) e.u./dl (missing) CIPROFLOXACIN 2025-03-07 12:10 [facility] 1 (missing) (missing) PENICILLIN-G 2025-03-07 12:10 [facility] 1 (missing) (missing) SPECIFIC GRAVITY,URINE 2025-03-07 12:10 [facility] 1.025 (missing) (missing) CUL, URINE 2025-03-07 12:10 [facility] 100>100,000 CFU/mL (missing) (missing) CUL, URINE 2025-03-07 12:10 [facility] 1010,000-50,000 CFU/mL (missing) (missing) LEVOFLOXACIN 2025-03-07 12:10 [facility] 2 (missing) (missing) PH,URINE 2025-03-07 12:10 [facility] 6.0 ph (missing) NITROFURANTOIN 2025-03-07 12:10 [facility] 64 (missing) (missing) CLARITY,URINE 2025-03-07 12:10 [facility] CLOUDY (missing) (missing) CUL, URINE 2025-03-07 12:10 [facility] ENTENTEROCOCCUS SPECIES TO BE FURTHER IDENTIFIED (missing) (missing) O:ENTGAL 2025-03-07 12:10 [facility] ENTGALENTEROCOCCUS GALLINARUMENTEROCOCCUS GALLINARUM (missing) (missing) O:ESCCOL 2025-03-07 12:10 [facility] ESCCOLESCHERICHIA COLIESCHERICHIA COLI (missing) (missing) CUL, URINE 2025-03-07 12:10 [facility] IDMIC.2ORG 2 ID/TAMMY COM* (missing) (missing) CUL, URINE 2025-03-07 12:10 [facility] IDMICID/TAMMY COM* (missing) (missing) UR CULTURE IF IND 2025-03-07 12:10 [facility] INDICATED (missing) (missing) URINE MICROSCOPIC INDICATED? 2025-03-07 12:10 [facility] INDICATED (missing) (missing) BACTERIA,URINE 2025-03-07 12:10 [facility] Many /hpf (missing) GLUCOSE, URINE (UA) 2025-03-07 12:10 [facility] NEGATIVE mg/dl (missing) CUL, URINE 2025-03-07 12:10 [facility] ORG.2PRELIM ORG ID* (missing) (missing) NITRITE,URINE 2025-03-07 12:10 [facility] POSITIVE (missing) (missing) SQUAMOUS EPITHELIAL CELL,UR 2025-03-07 12:10 [facility] RARE Squamous (missing) (missing) CUL, URINE 2025-03-07 12:10 [facility] SENSISENSITIVITIES TO FOLLOW (missing) (missing) LEUKOCYTE ESTERASE, URINE 2025-03-07 12:10 [facility] SMALL (missing) (missing) BILIRUBIN,URINE 2025-03-07 12:10 [facility] SMALL (missing) Bilirubin can be influenced by color interference. Please correlate positive results with clinical presentation KETONES,URINE (UA) 2025-03-07 12:10 [facility] TRACE mg/dl (missing) PROTEIN,URINE 2025-03-07 12:10 [facility] TRACE mg/dl (missing) OCCULT BLOOD,URINE 2025-03-07 12:10 [facility] TRACE-INTACT (missing) (missing) CUL, URINE 2025-03-07 12:10 [facility] UCC.2ORG 2 CC* (missing) (missing) CUL, URINE 2025-03-07 12:10 [facility] UCC.6COLONY COUNT (missing) (missing) COLOR,URINE 2025-03-07 12:10 [facility] YELLOW (missing) URINE RANDOM CUL, URINE 2025-03-07 12:10 [facility] YIDENTIFICATION AND SENSITIVITIES TO FOLLOW (missing) (missing) Result panel 6 UROBILINOGEN,URINE 2025-04-06 11:11 [facility] 0.2 (NORMAL) e.u./dl (missing) SPECIFIC GRAVITY,URINE 2025-04-06 11:11 [facility] 1.020 (missing) (missing) PH,URINE 2025-04-06 11:11 [facility] 6.0 ph (missing) CLARITY,URINE 2025-04-06 11:11 [facility] CLEAR (missing) (missing) COLOR,URINE 2025-04-06 11:11 [facility] DARK YELLOW (missing) URINE RANDOM LEUKOCYTE ESTERASE, URINE 2025-04-06 11:11 [facility] NEGATIVE (missing) (missing) NITRITE,URINE 2025-04-06 11:11 [facility] NEGATIVE (missing) (missing) OCCULT BLOOD,URINE 2025-04-06 11:11 [facility] NEGATIVE (missing) (missing) BILIRUBIN,URINE 2025-04-06 11:11 [facility] NEGATIVE (missing) Bilirubin can be influenced by color interference. Please correlate positive results with clinical presentation GLUCOSE, URINE (UA) 2025-04-06 11:11 [facility] NEGATIVE mg/dl (missing) KETONES,URINE (UA) 2025-04-06 11:11 [facility] NEGATIVE mg/dl (missing) PROTEIN,URINE 2025-04-06 11:11 [facility] NEGATIVE mg/dl (missing) UR CULTURE IF IND 2025-04-06 11:11 [facility] NOT INDICATED (missing) (missing) URINE MICROSCOPIC INDICATED? 2025-04-06 11:11 [facility] NOT INDICATED (missing) (missing) Result panel 7 CUL,WOUND (AEROBIC) 2025-04-08 12:00 [facility] (missing) (missing) (missing) PENICILLIN 2025-04-08 12:00 [facility] >1 (missing) (missing) OXACILLIN 2025-04-08 12:00 [facility] >2 (missing) (missing) CLINDAMYCIN 2025-04-08 12:00 [facility] >2 (missing) Methicillin Resistant Staphylococcus B-Lactamase Positive TRIMETHOPRIM/GARCIA LFAMETHOXAZOLE 2025-04-08 12:00 [facility] >2/38 (missing) (missing) ERYTHROMYCIN 2025-04-08 12:00 [facility] >4 (missing) (missing) LEVOFLOXACIN 2025-04-08 12:00 [facility] >4 (missing) (missing) TETRACYCLINE 2025-04-08 12:00 [facility] >8 (missing) (missing) RIFAMPIN 2025-04-08 12:00 [facility] <=0.5 (missing) (missing) DAPTOMYCIN 2025-04-08 12:00 [facility] <=1 (missing) (missing) LINEZOLID 2025-04-08 12:00 [facility] <=1 (missing) (missing) GENTAMICIN 2025-04-08 12:00 [facility] <=2 (missing) (missing) VANCOMYCIN 2025-04-08 12:00 [facility] 1 (missing) (missing) CUL,WOUND (AEROBIC) 2025-04-08 12:00 [facility] 22+ GROWTH (missing) (missing) MOXIFLOXACIN 2025-04-08 12:00 [facility] 4 (missing) (missing) MINOCYCLINE 2025-04-08 12:00 [facility] 8 (missing) (missing) CUL,WOUND (AEROBIC) 2025-04-08 12:00 [facility] CC.1ORG 1 COLONY COUNT* (missing) (missing) CUL,WOUND (AEROBIC) 2025-04-08 12:00 [facility] CC.6COLONY COUNT (missing) (missing) CUL,WOUND (AEROBIC) 2025-04-08 12:00 [facility] FEW GRAM POSITIVE COCCI (missing) (missing) CUL,WOUND (AEROBIC) 2025-04-08 12:00 [facility] FEW WHITE BLOOD CELLS (missing) (missing) CUL,WOUND (AEROBIC) 2025-04-08 12:00 [facility] GPGRAM POSITIVE GROWTH TO BE FURTHER IDENTIFIED (missing) (missing) CUL,WOUND (AEROBIC) 2025-04-08 12:00 [facility] GRAM STAIN (missing) (missing) CUL,WOUND (AEROBIC) 2025-04-08 12:00 [facility] MRSA.1?MRSA? (missing) (missing) O:MRSA 2025-04-08 12:00 [facility] MRSAMETHIC[facility]IN RESIST S. AUREUSMETHICILLIN RESIST S. AUREUS (missing) (missing) CUL,WOUND (AEROBIC) 2025-04-08 12:00 [facility] ORG.1PRELIM ORG ID* (missing) (missing) CUL,WOUND (AEROBIC) 2025-04-08 12:00 [facility] YMETHICILLIN RESISTANT STAPHYLOCOCCUS AUREUS (missing) (missing) Social History date description facility
[2025-04-11 21:02] LABS: HCT - HEMATOCRIT 38.5 % (37.0-47.0); HGB - HEMOGLOBIN 11.6 g/dL (12.0-16.0); MEAN PLATELET VOLUME 9.8 fL (7.9-10.8); NRBC ABSOLUTE COUNT (AUTO) 0.02 x10^3/uL; NUCLEATED RED BLOOD CELLS AUTO 0.1 /100WBC; PLT - PLATELET COUNT 411 10^3/uL (130-450); RED CELL DISTRIBUTION WIDTH 14.6 % (12.0-15.0)
[2025-04-11] MEDS: KETOROLAC 15 MG/ML VIAL IVP STA (21:22)
[2025-04-11] MEDS: SODIUM CHLORIDE 0.9% 1,000 ML IV STA (21:22)
[2025-04-11 21:40] LABS: ALT ALANINE AMINOTRANSFERASE 7.0 IU/L (10-60); AST ASPARTATE AMINOTRANSFERASE 16.0 IU/L (10-42); BUN - BLOOD UREA NITROGEN 18.0 mg/dL (6-20); CARBON DIOXIDE - CO2 23.0 mmol/L (21-32); CREATININE 0.9 mg/dL (0.6-1.3); GFR - MDRD 60.0 (>89)
[2025-04-11 22:08] LABS: OCCULT BLOOD,URINE SMALL (NEGATIVE)
[2025-04-11 22:09] LABS: GLUCOSE, URINE (UA) NEGATIVE (NEGATIVE); KETONES,URINE (UA) 15 mg/dL (NEGATIVE)
[2025-04-11 22:24] LABS: SQUAMOUS EPITHELIAL CELL,UR NONE SEEN (<= Few)
[2025-04-11 22:25] LABS: CRYSTALS,URINE >50 Triple Phos /LPF
[2025-04-11] MEDS: cefTRIAXone 1 GM VIAL IVP STA (23:16)
--- NOTE | 2025-04-11 23:20 | CT Report ---
PROCEDURE: CT Abdomen/Pelvis W INDICATIONS: general abd pain today CONTRAST: 100 ML OMNI 300 TECHNIQUE: After the administration of intravenous contrast, a CT scan of the abdomen and pelvis was performed. Images were recorded and evaluated at appropriate window settings. Reformats: coronal and sagittal. For radiation dose reduction, the following was used: automated exposure control, adjustment of mA and/or kV according to patient size. COMPARISON: CT abdomen pelvis 01/12/2023 FINDINGS: Image quality: Degraded by patient motion artifact. Streak artifact from right hip arthroplasty limits evaluation of surrounding structures.. Lower chest: Unremarkable. Liver: No solid mass. Gallbladder: Surgically absent. Biliary tree: No intrahepatic or extrahepatic dilation, accounting for a post- cholecystectomy state. Spleen: No splenomegaly. Pancreas: No pancreatic ductal dilation. Adrenals: No adrenal nodule. Kidneys and ureters: No hydronephrosis. No renal cystic lesion which requires follow up. No solid mass. Stomach, bowel and peritoneum: Gastric sleeve postsurgical changes. No gastric or small bowel dilation. No abnormal wall thickening. No pathologic free fluid. Moderate fecal loading. Lymph nodes: No central or retroperitoneal adenopathy. Vessels: No infrarenal aortic aneurysm. Patent portal vein. PELVIS Reproductive organs: Unremarkable. Bladder: No abnormal wall thickening. Perdomo catheter is present. Pelvic lymph nodes: No pelvic adenopathy by size criteria. Bones: No aggressive osseous abnormality. Other: No significant ventral or inguinal hernia. IMPRESSION: Motion degraded exam. Moderate fecal loading may represent constipation. Reviewed by: Breonna Lamb MD, PhD on 04/11/2025 11:17 PM PST Approved by: Breonna Lamb MD, PhD on 04/11/2025 11:17 PM PST Station ID: [id number]
--- NOTE | 2025-04-11 23:54 | HISTORY & PHYSICAL EXAMINATION ---
Chief Complaint Chief Complaint Chief Complaint: sent from [place] for weakness, ftt History of Present Illness Admitted From Admitted From:: detention History Obtained From Records Reviewed: er records History obtained from: er records, er physician, patient (limited 2/2 dementia, confusion) Exam Limitations: (limited 2/2 dementia, confusion) History of Present Illness HPI Comment/Other: . NAYE Tele-Design Eng History & Physical . Telemedicine service provided via a HIPAA-compliant platform, utilizing audio/visual equipment certified under [facility] for security, confidentiality, and privacy controls. Service Date: 04/12/2025 Service Type: Initial H&P / SOUND Tele-Hospitalist Patient Location: [place], [place] Physician / Location: Zelalem Azevedo MD @ [place], [place] Participants in TeleHealth session: Myself, Patient, Bedside nurse Patient consent obtained: no d/t confused, demented, ams . History Obtained By: I discussed the case with the ED provider / reviewed their notes/workup. Additional history obtained via direct interaction and/or assessment of the patient. . Chief Complaint:sent from [place] for weakness, confusion, poor appetite, FTT . This is a 84 yo female with advanced dementia (in a memory care unit), afib not on AC, chronic SP catheter, recently d/c from here end of february after undergoing right hip surgery on 02/24 is sent back to here for weakness, poor appetite, making nonsensical statements and sounds worse than her dementia baseline found here to have a CA-UTI being admitted for fluids and abx. . workup in er shows labs benign, vitals stable. UA is however concerning for infection. ramos is being changed in ER, unsure when was last changed patient unable to provide details history d/t dementia/ ams and is aao x1 and not septic / toxic appearing . management in ER: fluids, rocephi, cultures see plan of care below d/w nurse, ed md, and attempted with patient Meds/Allgy Home Medications Ambulatory Orders Medication Instructions Recorded Confirmed latanoprost 0.005 % eye drops 1 drp ophthalmic (eye) O NCE 02/23/24 02/25/25 acetaminophen 500 mg tablet 500 - 1,000 mg PO Q6H PRN pain 10/05/24 02/25/25 loperamide 2 mg tablet 2 mg PO Q6H PRN loose stool 10/05/24 02/25/25 calcium 300 mg-D3 20 mcg-magnesium 1 tab PO BID #30 ta bs 10/26/24 02/25/25 25 mg-coppr 0.5 [id number] tablet cholecalciferol (vitamin D3) 50 50 mcg PO QDAY #30 cap s 10/26/24 02/25/25 mcg (2,000 unit) capsule zinc oxide-cod liver oil 40 % 1 applic topical 5XD 10 days #113 11/07/24 02/25/25 topical paste (Desitin) grams memantine 10 mg tablet (Namenda) 10 mg PO BID 12/07/24 02/25/25 dorzolamide 2 % eye drops 1 drp ophthalmic (eye) BID 0 12/31/24 02/25/25 oxycodone 5 mg tablet 2.5 - 5 mg (0.5 - 1 x 5 mg) PO 01/27/25 02/25/25 Q4-6H PRN pain #60 tabs timolol maleate 0.5 % eye drops 1 drp ophthalmic (eye) DAILY 02/25/25 02/25/25 aspirin 81 mg tablet,delayed 162 mg (2 x 81 mg) PO REGINE LY VTE 03/02/25 release Prophylaxis 22 days #44 tabs melatonin 3 mg tablet 6 mg (2 x 3 mg) PO Q24H #60 tabs 03/02/25 tamsulosin 0.4 mg capsule 0.4 mg PO DAILY #30 caps cephalexin 500 mg capsule 500 mg PO TID 5 days #15 cap s 03/11/25 Allergies Allergies Allergy/AdvReac Type Severity Reaction Status Date / Time No Known Drug Allergies Allergy Verified 03/03/25 14:06 PFSH Active Problems All Active Problems (Updated 04/12/25 @ 02:03 by Zelalem Azevedo MD) Atrial fibrillation (Chronic) Chronic indwelling Ramos catheter (Acute) Acute UTI (Acute) Leukocytosis (Acute) Acute alteration in mental status (Acute) Post-op bleeding (Acute) Hematoma, postoperative (Acute) Post-operative state (Acute) Bleeding from surgical wound (Acute) Anemia (Chronic) Urinary retention (Acute) Venous stasis of lower extremity (Chronic) Headache (Chronic) Left knee pain (Chronic) Vulvovaginal pain (Acute) Vaginitis (Acute) Cystitis (Acute) Dysuria (Acute) Caregiver reluctant to provide care (Chronic) Prediabetes (Chronic) Dyslipidemia (Chronic) Osteopenia (Chronic) History of bariatric surgery (Chronic) ESPINOZA (obstructive sleep apnea) (Chronic) Impairment of balance (Chronic) Glaucoma (Chronic) Paroxysmal atrial fibrillation (Chronic) Chronic thoracic back pain (Chronic) History of acoustic neuroma (Chronic) Migraine headache without aura (Chronic) Complaint of fatigable weakness (Acute) Alzheimer's dementia (Chronic) Medical History Medical History Urinary tract infection Dyspnea Surgical History Surgical History Partial traumatic transphalangeal amputation of thumb Hx of hemorrhoidectomy History of hysterectomy (~1978) History of carpal tunnel release S/P knee replacement (~2008) Right History of cholecystectomy (~1984) Status post stereotactic radiosurgery (~2010) L acoustic neuroma History of sleeve gastrectomy (~2017) with hiatal hernia repair Family History Family History Sister Alzheimers disease Father CAD (coronary artery disease) Heart attack Alcoholism Social History Social History Smoking Status: Never smoker Second hand tobacco smoke exposure: No Do you dip or chew tobacco?: No Do you vape?: No Patient requests smoking cessation consult: No Initiate information on smoking cessation: No Living arrangement: At home Marital Status: Living Condition: With spouse/s.o. 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: Yes POLST Patient has POLST: Yes POLST CPR Status: Do Not Attempt Resuscitation (DNAR) / Allow Natural Review of Systems Status of ROS: See HPI and unobtainable due to mental status (ams, dementia) Exam Exam Vital Signs: Vital Signs x48h Pulse Resp BP Pulse Ox 04/12/25 00:54 87 18 128/87 96 04/12/25 00:00 88 17 133/87 H 96 11/29/25 22:18 89 22 137/89 H 98 04/11/25 20:14 117 H 23 138/89 H 96 PHYSICAL EXAM Telemedicine physical exam conducted with hospital staff assisting in patient interaction and observation, guiding the patient through steps and providing necessary observations to the clinician. . VITAL SIGNS: Trend reviewed GENERAL: No acute distress.pleasantly confused HEENT: NC/AT; PERRLA CHEST: Chest wall nontender. No obvious trauma. No labored breathing HEART: S1S2 (+) RRR. No obvious murmur LUNGS: B/L air entry. No obvious wheeze, rales, rhonchi. No conversational dyspnea. ABDOMEN: BS (+). Soft. Nontender. No visible guarding. No s/o obvious trauma. RECTAL: Deferred GENITAL: SPC + cloudy dc from ramos SKIN: No obvious rash / jaundice. EXTREMITIES/MSK: No cyanosis Or signs of trauma/infection. Appropriate ROM (+) NEUROLOGIC: Cranial nerves II-XII grossly intact Constitutional normal general appearance, distress noted (mild) (fidgety and restless, but pleasant.) and average body habitus HENMT oropharynx normal Neck/C-Spine supple and no meningeal signs Lymph no lymphadenopathy noted Respiratory normal respiratory effort, clear to auscultation bilaterally, no wheezes and no rales Cardiovascular normal heart rate noted, regular rhythm noted and no edema Gastrointestinal abdomen soft to palpation and tender to palpation (moderate), (periumbilical) and (suprapubic) Genitourinary CVA tenderness noted (some toward right) Ramos catheter in place and is draining a very cloudy thick or yellow to white urine. Extremities no tenderness and full ROM Neurology no focal motor deficit noted and no sensory deficits noted Psychiatry mental status abnormal (somnolent), orientation abnormal (disoriented to place) and (disoriented to time), thought process abnormality noted (confused), affect normal and psychomotor abnormality noted (restless) Skin skin color normal Conclusion/Plan Problem List (1) Chronic indwelling Ramos catheter: (2) Acute UTI: (3) Atrial fibrillation: Qualifiers: Atrial fibrillation type: paroxysmal Qualified Code(s): I48.0 - Paroxysmal atrial fibrillation (4) Leukocytosis: Qualifiers: Leukocytosis type: unspecified Qualified Code(s): D72.829 - Elevated white blood cell count, unspecified (5) Acute alteration in mental status: (6) Urinary retention: Plan . Assessment / Plan . 1. Acute CA-UTI -- chronic SP cath d/t chronic retention, likely the exacerbating factor -- Cont rocephin started in ER, cultures, fluids -- clinically not septic / toxic appearing, monitor vitals, labs -- monitor for iatrogenic fluid overload -- after assessment and my d/w nurse: dysphagia diet -- ramos catheter ordered for change in the ER, ramos care per nursing . 2. R hip Sx 02/24 -- wound care consulted for postop care -- nurse reported some sero-sanguionous dc from surgical site, not infectious appearing per ED MD -- requested collection of drainage for culture . 3. pAFib not on AC -- not on AC likely 2/2 advanced dementia, fall hx, bleed risk -- current rate controlled, cont to monitor clinically . 4. Dementia c/b acute worsening of AMS -- likely 2l2 # 1 + dehydration -- management as above -- monitor for sun-downing / behavioral control . Medication Reconciliation status: nursing call NH to obtain . Code Status: DNR (POLST form on file) DVT PPx: SCd (given hip findings GI PPx:h2b Disposition: pending medical stability . Please Note: This document was created using Digital Speech to Text technology; grammatical errors may happen. Please reach out for any clarification. Thank you. . Admit status: Inpatient: Given the patient's clinical presentation, medical needs, and anticipated course, inpatient status is medically necessary. The required level of monitoring, diagnostics, and treatment exceeds what can be safely provided in outpatient or observation care. The patient is expected to require hospital- level care spanning at least two midnights. Status may be re-evaluated based on pending workup and reassessment by the incoming provider team. . Lab Results Lab results reviewed: Yes 04/11/25 20:43 04/11/25 21:20 Other Lab Results: Labs / Diagnostic workup I have personally reviewed labs, imaging and other accessory data along with the official reports currently available. My interpretation is reflected in the assessment and plan below. Diagnostic Imaging Results Diagnostic Imaging Results: positive Prelim report reviewed
[2025-04-12] MEDS ORDERED: SODIUM CHLORIDE FLUSH 0.9% 10 ML SYRINGE IVP PRN ×2 (00:09→00:47)
--- OUTSIDE RECORDS SUMMARY | 2025-04-12 00:21 | EXTERNAL MEDICAL SUMMARY RPT | Continuity of Care Document ---
Author Organization [place] Address [address] [place], [place] [address] [place] [id number] Phone Problems date description facility 2025-01-30 13:11 Dementia in other di seases classified elsewhere, moderate, without behavioral disturbance, psychotic disturbance, mood disturbance, and [facility] 2025-01-30 13:11 Alzheimer's disease, unspecifie d [facility] 2025-01-30 13:11 [facility] 2025-01-30 13:11 Other specified disorders of ve ins [facility] 2025-01-30 13:11 Pain [facility] thoracic spine [facility] 2025-01-30 13:11 Other abnormalities of gait and mobility [facility] 2025-01-30 13:11 Dysuria [facility] 2025-01-30 13:11 [facility] 13:11 Other specified counseling [facility] 2025-01-30 13:11 Personal history of other benig n neoplasm [facility] 2025-02-16 13:00 [facility] 2025-02-24 22:40 Fracture of unspecif ied part of neck of right femur, initial encounter for closed fracture [facility] 2025-02-24 22:43 Fracture of unspecif ied part of neck of right femur, initial encounter for closed fracture [facility] 2025-02-24 22:56 Fracture of unspecif ied part of neck of right femur, initial encounter for closed fracture [facility] 2025-02-25 00:06 Obstructive sleep apnea (adult) (pediatric) [facility] 2025-02-25 00:06 Paroxysmal atrial fibrillation [facility] 2025-02-25 00:06 Fracture of unspecif ied part of neck of right femur, initial encounter for closed fracture [facility] 2025-02-25 00:07 Obstructive sleep apnea (adult) (pediatric) [facility] 2025-02-25 00:07 Paroxysmal atrial fibrillation [facility] 2025-02-25 00:07 Fracture of unspecif ied part of neck of right femur, initial encounter for closed fracture [facility] 2025-02-25 00:51 Obstructive sleep apnea (adult) (pediatric) [facility] 2025-02-25 00:51 Paroxysmal atrial fibrillation [facility] 2025-02-25 00:51 Fracture of unspecif ied part of neck of right femur, initial encounter for closed fracture [facility] 2025-02-25 01:08 Obstructive sleep apnea (adult) (pediatric) [facility] 2025-02-25 01:08 Paroxysmal atrial fibrillation [facility] 2025-02-25 01:08 Fracture of unspecif ied part of neck of right femur, initial encounter for closed fracture [facility] 2025-02-25 06:53 Obstructive sleep apnea (adult) (pediatric) [facility] 2025-02-25 06:53 Paroxysmal atrial fibrillation [facility] 2025-02-25 06:53 Fracture of unspecif ied part of neck of right femur, initial encounter for closed fracture [facility] 2025-02-25 08:18 Obstructive sleep apnea (adult) (pediatric) [facility] 2025-02-25 08:18 Paroxysmal atrial fibrillation [facility] 2025-02-25 08:18 Fracture of unspecif ied part of neck of right femur, initial encounter for closed fracture [facility] 2025-02-25 08:29 Obstructive sleep apnea (adult) (pediatric) [facility] 2025-02-25 08:29 Paroxysmal atrial fibrillation [facility] 2025-02-25 08:29 Fracture of unspecif ied part of neck of right femur, initial encounter for closed fracture [facility] 2025-02-25 09:24 Obstructive sleep apnea (adult) (pediatric) [facility] 2025-02-25 09:24 Paroxysmal atrial fibrillation [facility] 2025-02-25 09:24 Fracture of unspecif ied part of neck of right femur, initial encounter for closed fracture [facility] 2025-02-25 14:27 Obstructive sleep apnea (adult) (pediatric) [facility] 2025-02-25 14:27 Paroxysmal atrial fibrillation [facility] 2025-02-25 14:27 Fracture of unspecif ied part of neck of right femur, initial encounter for closed fracture [facility] 2025-02-25 14:49 Obstructive sleep apnea (adult) (pediatric) [facility] 2025-02-25 14:49 Paroxysmal atrial fibrillation [facility] 2025-02-25 14:49 Fracture of unspecif ied part of neck of right femur, initial encounter for closed fracture [facility] 2025-02-26 12:00 Anemia, unspecified [facility] 2025-02-26 12:00 Dementia in other di seases classified elsewhere, moderate, without behavioral disturbance, psychotic disturbance, mood disturbance, and anxiety [facility] 2025-02-26 12:00 Alzheimer's disease, unspecifie d [facility] 2025-02-26 12:00 Obstructive sleep apnea (adult) (pediatric) [facility] 2025-02-26 12:00 Paroxysmal atrial fibrillation [facility] 2025-02-26 12:00 Retention of urine, unspecified [facility] 2025-02-26 12:00 Fracture of unspecif ied part of neck of right femur, initial encounter for closed fracture [facility] 2025-02-26 13:16 Anemia, unspecified [facility] 2025-02-26 13:16 Dementia in other di seases classified elsewhere, moderate, without behavioral disturbance, psychotic disturbance, mood disturbance, and anxiety [facility] 2025-02-26 13:16 Alzheimer's disease, unspecifie d [facility] 2025-02-26 13:16 Obstructive sleep apnea (adult) (pediatric) [facility] 2025-02-26 13:16 Paroxysmal atrial fibrillation [facility] 2025-02-26 13:16 Retention of urine, unspecified [facility] 2025-02-26 13:16 Fracture of unspecif ied part of neck of right femur, initial encounter for closed fracture [facility] 2025-02-26 13:46 Anemia, unspecified [facility] 2025-02-26 13:46 Dementia in other di seases classified elsewhere, moderate, without behavioral disturbance, psychotic disturbance, mood disturbance, and anxiety [facility] 2025-02-26 13:46 Alzheimer's disease, unspecifie d [facility] 2025-02-26 13:46 Obstructive sleep apnea (adult) (pediatric) [facility] 2025-02-26 13:46 Paroxysmal atrial fibrillation [facility] 2025-02-26 13:46 Retention of urine, unspecified [facility] 2025-02-26 13:46 Fracture of unspecif ied part of neck of right femur, initial encounter for closed fracture [facility] 2025-02-27 12:33 Anemia, unspecified [facility] 2025-02-27 12:33 Dementia in other di seases classified elsewhere, moderate, without behavioral disturbance, psychotic disturbance, mood disturbance, and anxiety [facility]25-[facility] 12:33 Alzheimer's disease, unspecifie d [facility] 2025-02-27 12:33 Obstructive sleep apnea (adult) (pediatric) [facility] 2025-02-27 12:33 [facility]oxysmal [facility] fibrillation [facility]25-02-27 12:33 Retention of urine, unspecified [facility] 2025-02-27 12:33 Fracture of unspecif ied part of neck of right femur, initial encounter for closed fracture [facility] 2025-03-02 11:13 Anemia, unspecified [facility] 2025-03-02 11:13 Dementia in other di seases classified elsewhere, moderate, without behavioral disturbance, psychotic disturbance, mood disturbance, and anxiety [facility]-03-[facility] 11:13 Dementia in other di seases classified elsewhere, moderate, with agitation [facility]-03-02 11:13 Alzheimer's disease, unspecifie d [facility] 2025-03-02 11:13 Obstructive sleep apnea (adult) (pediatric) [facility] 2025-03-02 11:13 [facility]oxysmal [facility] fibrillation [facility]-03-[facility] 11:13 Retention of urine, unspecified [facility] 2025-03-02 11:13 Fracture of unspecif ied part of neck of right femur, initial encounter for closed fracture [facility] 2025-03-02 11:20 Anemia, unspecified [facility] 2025-03-02 11:20 Dementia in other di seases classified elsewhere, moderate, without behavioral disturbance, psychotic disturbance, mood disturbance, and anxiety [facility]-03-[facility] 11:20 Dementia in other di seases classified elsewhere, moderate, with agitation [facility]25-03-02 11:20 Alzheimer's disease, [facility]specifie d [facility] 2025-03-02 11:20 Obstructive sleep apnea (adult) (pediatric) [facility] 2025-03-02 11:20 [facility]oxysmal atrial fibrillation [facility] 11:20 Retention of urine, unspecified [facility] 2025-03-02 11:20 Fracture of unspecif ied part of neck of right femur, initial encounter for closed fracture [facility] 2025-03-02 15:58 Anemia, unspecified [facility] 2025-03-02 15:58 Dementia in other di seases classified elsewhere, moderate, without behavioral disturbance, psychotic disturbance, mood disturbance, and anxiety [facility] 2025-03-02 15:58 Dementia in other di seases classified elsewhere, moderate, with agitation [facility]-03-[facility] 15:58 Alzheimer's disease, unspecifie d [facility] 2025-03-02 15:58 Obstructive sleep apnea (adult) (pediatric) [facility] 2025-03-02 15:58 Paroxysmal atrial fibrillation [facility] 2025-03-02 15:58 Retention of urine, unspecified [facility] 2025-03-02 15:58 Fracture of unspecif ied part of neck of right femur, initial encounter for closed fracture [facility] 2025-03-02 15:59 Anemia, unspecified [facility] 2025-03-02 15:59 Dementia in other di seases classified elsewhere, moderate, without behavioral disturbance, psychotic disturbance, mood disturbance, and anxiety [facility] 2025-03-02 15:59 Dementia in other di seases classified elsewhere, moderate, with agitation [facility] 2025-03-02 15:59 Alzheimer's disease, unspecifie d [facility] 2025-03-02 15:59 Obstructive sleep apnea (adult) (pediatric) [facility] 2025-03-02 15:59 Paroxysmal atrial fibrillation [facility] 2025-03-02 15:59 Retention of urine, unspecified [facility] 2025-03-02 15:59 Fracture of unspecif ied part of neck of right femur, initial encounter for closed fracture [facility] 2025-03-03 14:06 Anemia, unspecified [facility] 2025-03-03 14:06 Dementia in other di seases classified elsewhere, moderate, without behavioral disturbance, psychotic disturbance, mood disturbance, and anxiety [facility] 2025-03-03 14:06 Dementia in other di seases classified elsewhere, moderate, with agitation [facility] 2025-03-03 14:06 Alzheimer's disease, unspecifie d [facility] 2025-03-03 14:06 Obstructive sleep apnea (adult) (pediatric) [facility] 14:06 Paroxysmal atrial fibrillation [facility] 2025-03-03 14:06 Retention of urine, unspecified [facility] 2025-03-03 14:06 Fracture of unspecif ied part of neck of right femur, initial encounter for closed fracture [facility] 2025-03-04 08:03 Other specified inju daisy of right hip, initial encounter [facility] 2025-03-04 14:55 Anemia, unspecified [facility] 2025-03-04 14:55 Dementia in other di seases classified elsewhere, moderate, without behavioral disturbance, psychotic disturbance, mood disturbance, and anxiety [facility] 2025-03-04 14:55 Dementia in other di seases classified elsewhere, moderate, with agitation [facility] 14:55 Alzheimer's disease, unspecifie d [facility] 2025-03-04 14:55 Obstructive sleep apnea (adult) (pediatric) [facility] 2025-03-04 14:55 Paroxysmal atrial fibrillation [facility] 2025-03-04 14:55 [facility] 2025-03-04 14:55 Retention of urine, unspecified [facility] 2025-03-04 14:55 Fracture of unspecif ied part of neck of right femur, initial encounter for closed fracture [facility]-03[facility]04 14:55 Unspecified injury of right hip , [facility]25-03-04 15:34 Anemia, unspecified [facility] 2025-03-04 15:34 Dementia in other di seases classified elsewhere, moderate, without behavioral disturbance, psychotic disturbance, mood disturbance, and anxiety [facility] 2025-03-04 15:34 Dementia in other di seases classified elsewhere, moderate, with agitation [facility] 2025-03-04 15:34 Alzheimer's disease, unspecifie d [facility]04 15:34 Obstructive sleep apnea (adult) (pediatric) [facility]04 15:34 Paroxysmal atrial fibrillation [facility] 2025-03-04 15:34 [facility] 2025-03-04 15:34 Retention of urine, unspecified [facility] 2025-03-04 15:34 Fracture of unspecif ied part of neck of right femur, initial encounter for closed fracture [facility] 20[facility]-03[facility]04 15:34 Unspecified injury of right hip , [facility]25-03-05 10:23 Postprocedural hemor rhage of skin and subcutaneous tissue following other [facility] 2025-03-07 12:34 Urinary tract infection, site n ot specified [facility] 2025-03-09 08:13 Urinary tract infection, site n ot specified [facility] 2025-03-09 12:32 Other specified postprocedural states [facility] 2025-03-11 13:49 Bed confinement [facility] 2025-03-11 13:58 Postprocedural hemor rhage of skin and subcutaneous tissue following other procedure [facility] 2025-03-11 14:02 Fracture of unspecif ied part of neck of right femur, subsequent encounter for closed fracture with routine healing [facility] 2025-03-16 13:21 Postprocedural hemor rhage of skin and subcutaneous tissue following other procedure [facility] 2025-03-18 10:48 Postprocedural hemat jovita of skin and subcutaneous tissue following other procedure [facility] 2025-03-20 10:19 Hemorrhage, not elsewhere class ified [facility] 2025-03-25 15:35 [facility] 12:15 Urinary tract infection, site n ot specified [facility] 2025-04-08 12:40 Un[facility] infectious [facility]25-04[facility]08 12:49 Urinary tract infection, site n ot specified [facility] 2025-04-08 12:50 Urinary tract infection, site n ot specified [facility] 2025-04-09 00:05 Unspecified infectious disease [facility] Results/Labs test date facility value unit notes Result panel 1 NUCLEATED RED BLOOD CELLS AUTO 2025-02-24 21:46 [facility] 0.0 /100wbc (missing) BASOPHILS # (AUTO) 2025-02-24 21:46 [facility] 0.0 10 3/ul (missing) NRBC ABSOLUTE COUNT (AUTO) 2025-02-24 21:46 [facility] 0.00 x10 3/ul (missing) EOSINOPHILS # (AUTO) 2025-02-24 21:46 [facility] 0.1 10 3/ul (missing) MONOCYTES # (AUTO) 2025-02-24 21:46 [facility] 0.4 10 3/ul (missing) BILIRUBIN,TOTAL 2025-02-24 21:46 [facility] 0.5 mg/dl As of November 2022 testing method has changed, this may include reference ranges. CREATININE 2025-02-24 21:46 [facility] 0.8 mg/dl As of November 2022 testing method has changed, this may include reference ranges. ALBUMIN/GLOBULIN RATIO 2025-02-24 21:46 [facility] 1.6 (missing) (missing) LYMPHOCYTES # (AUTO) 2025-02-24 21:46 [facility] 1.9 10 3/ul (missing) MEAN PLATELET VOLUME 2025-02-24 21:46 [facility] 10.4 fl (missing) CHLORIDE 2025-02-24 21:46 [facility] 105 mmol/l As of November 2022 testing method has changed, this may include reference ranges. HGB - HEMOGLOBIN 2025-02-24 21:46 [facility] 12.9 g/dl (missing) RED CELL DISTRIBUTION WIDTH 2025-02-24 21:46 [facility] 13.6 % (missing) SODIUM 2025-02-24 21:46 [facility] 140 mmol/l (missing) PLT - PLATELET COUNT 2025-02-24 21:46 [facility] 163 10 3/ul (missing) ALT ALANINE AMINOTRANSFERASE 2025-02-24 21:46 [facility] 18 iu/l As of November 2022 testing method has changed, this may include reference ranges. GLOBULIN 2025-02-24 21:46 [facility] 2.8 g/dl (missing) AST ASPARTATE AMINOTRANSFERASE 2025-02-24 21:46 [facility] 21 iu/l As of November 2022 testing method has changed, this may include reference ranges. BUN - BLOOD UREA NITROGEN 2025-02-24 21:46 [facility] 22 mg/dl As of November 2022 testing method has changed, this may include reference ranges. CARBON DIOXIDE - CO2 2025-02-24 21:46 [facility] 27 mmol/l As of November 2022 testing method has changed, this may include reference ranges. POTASSIUM 2025-02-24 21:46 [facility] 3.9 mmol/l As of November 2022 testing method has changed, this may include reference ranges. MEAN CORPUSCULAR HEMOGLOBIN 2025-02-24 21:46 [facility] 30.8 pg (missing) MEAN CORPUSCULAR HGB CONC 2025-02-24 21:46 [facility] 32.4 g/dl (missing) HCT - HEMATOCRIT 2025-02-24 21:46 [facility] 39.8 % (missing) NEUTROPHILS # (AUTO) 2025-02-24 21:46 [facility] 4.0 10 3/ul (missing) RED BLOOD COUNT 2025-02-24 21:46 [facility] 4.19 10 6/ul (missing) ALBUMIN 2025-02-24 21:46 [facility] 4.5 g/dl As of November 2022 testing method has changed, this may include reference ranges. ALKALINE PHOSPHATASE 2025-02-24 21:46 [facility] 49 iu/l As of November 2022 testing method has changed, this may include reference ranges. WHITE BLOOD COUNT 2025-02-24 21:46 [facility] 6.5 x10 3/ul (missing) GFR - MDRD 2025-02-24 21:46 [facility] 68 (missing) The IDMS-traceable MDRD Study Equation [...] updated July 2011. TOTAL PROTEIN 2025-02-24 21:46 [facility] 7.3 g/dl As of November 2022 testing method has changed, this may include reference ranges. ANION GAP 2025-02-24 21:46 [facility] 8.0 (missing) (missing) CALCIUM 2025-02-24 21:46 [facility] 9.9 mg/dl As of November 2022 testing method has changed, this may include reference ranges. MEAN CORPUSCULAR VOLUME 2025-02-24 21:46 [facility] 95.0 fl (missing) GLUCOSE 2025-02-24 21:46 [facility] 99 mg/dl As of November 2022 testing method has changed, this may include reference ranges. Result panel 2 NUCLEATED RED BLOOD CELLS AUTO 2025-02-25 06:28 [facility] 0.0 /100wbc (missing) BASOPHILS # (AUTO) 2025-02-25 06:28 [facility] 0.0 10 3/ul (missing) EOSINOPHILS # (AUTO) 2025-02-25 06:28 [facility] 0.0 10 3/ul (missing) NRBC ABSOLUTE COUNT (AUTO) 2025-02-25 06:28 [facility] 0.00 x10 3/ul (missing) MONOCYTES # (AUTO) 2025-02-25 06:28 [facility] 0.5 10 3/ul (missing) CREATININE 2025-02-25 06:28 [facility] 0.7 mg/dl As of November 2022 testing method has changed, this may include reference ranges. LYMPHOCYTES # (AUTO) 2025-02-25 06:28 [facility] 0.8 10 3/ul (missing) MEAN PLATELET VOLUME 2025-02-25 06: [facility] 10.4 fl (missing) CHLORIDE 2025-02-25 06:28 [facility]/l As of November 2022 testing method has changed, this may include reference ranges. HGB - HEMOGLOBIN 2025-02-25: [facility] 11.3 g /dl (missing) RED CELL DISTRIBUTION WIDTH 2025-02-25 06:28 [facility] 13.5 % (mi ssing) GLUCOSE 2025-02-25: [facility] 132 mg/dl As of November 2022 testing method has changed, this may include reference ranges. SODIUM 2025-02-25:28 [facility] 139 mmol/l (missing) PLT - PLATELET COUNT 2025-02-25 06:28 [facility] 141 10 3/ul (missing) BUN - BLOOD UREA NITROGEN 2025-02-25:28 [facility] 21 mg/dl As of Nov testing method has changed, this may include reference ranges. CARBON DIOXIDE - CO2 2025-02-25: [facility] 27 mmol/l As of November 2022 testing method has changed, this may include reference ranges. RED BLOOD COUNT 2025-02-25:28 [facility] 3.70 10 6/ul (missing) POTASSIUM 2025-02-25:28 [facility] 3.8 mmol/l As of November 2022 testing method has changed, this may include reference ranges. MEAN CORPUSCULAR HEMOGLOBIN 2025-02-25 06:28 [facility] 30.5 pg (missing) MEAN CORPUSCULAR HGB CONC 2025-02-25 06:28 [facility] 32.0 g/dl (missing) HCT - HEMATOCRIT 2025-02-25 06:28 [facility] 35.3 % (missing) ANION GAP 2025-02-25 06:28 [facility] 5.0 (missing ) (missing) NEUTROPHILS # (AUTO) 2025-02-25 06:28 [facility] 7.5 10 3/ul (missing) CALCIUM 2025-02-25 06:28 [facility] 8.5 mg/dl As of November 2022 testing method has changed, this may include reference ranges. WHITE BLOOD COUNT 2025-02-25 06:28 [facility] 8.8 x10 3/ul (missing) GFR - MDRD 2025-02-25 06:28 [facility] 80 (missin g) The IDMS-traceable MDRD Study [...] July 2011. MEAN CORPUSCULAR VOLUME 2025-02-25 06:28 [facility] 95.4 fl (missing) Result panel 3 CREATININE 2025-02-26 04:53 [facility] 0.6 mg/dl As of November 2022 testing method has changed, this may include reference ranges. MEAN PLATELET VOLUME 2025-02-26 04:53 [facility] 10.5 fl (missing) CHLORIDE 2025-02-26 04:53 [facility] 106 mmol/l As of November 2022 testing method has changed, this may include reference ranges. RED CELL DISTRIBUTION WIDTH 2025-02-26 04:53 [facility] 13.8 % (mi ssing) GLUCOSE 2025-02-26 04:53 [facility] 137 mg/dl As of November 2022 testing method has changed, this may include reference ranges. SODIUM 2025-02-26 04:53 [facility] 139 mmol/l (missing) PLT - PLATELET COUNT 2025-02-26 04:53 [facility] 140 10 3/ul (missing) BUN - BLOOD UREA NITROGEN 2025-02-26 04:53 [facility] 18 mg/dl As of Nov testing method has changed, this may include reference ranges. CARBON DIOXIDE - CO2 2025-02-26 04:53 [facility] 27 mmol/l As of November 2022 testing method has changed, this may include reference ranges. HCT - HEMATOCRIT 2025-02-26 04:53 [facility] 29.4 % (missing) RED BLOOD COUNT 2025-02-26 04:53 [facility] 3.02 10 6/ul (missing) POTASSIUM 2025-02-26 04:53 [facility] 3.6 mmol/l As of November 2022 testing method has changed, this may include reference ranges. MEAN CORPUSCULAR HEMOGLOBIN 2025-02-26 04:53 [facility] 30.8 pg (missing) MEAN CORPUSCULAR HGB CONC 2025-02-26 04:53 [facility] 31.6 g/dl (missing) ANION GAP 2025-02-26 04:53 [facility] 6.0 (missing ) (missing) WHITE BLOOD COUNT 2025-02-26 04:53 [facility] 7.4 x10 3/ul (missing) CALCIUM 2025-02-26 04:53 [facility] 8.3 mg/dl As of November 2022 testing method has changed, this may include reference ranges. HGB - HEMOGLOBIN 2025-02-26 04:53 [facility] 9.3 g /dl (missing) GFR - MDRD 2025-02-26 04:53 [facility] 95 (missin g) The IDMS-traceable MDRD Study [...] July 2011. MEAN CORPUSCULAR VOLUME 2025-02-26 04:53 [facility] 97.4 fl (missing) Result panel 4 NUCLEATED RED BLOOD CELLS AUTO 2025-02-28 08:32 [facility] 0.0 /100wbc (missing) BASOPHILS # (AUTO) 2025-02-28 08:32 [facility] 0.0 10 3/ul (missing) NRBC ABSOLUTE COUNT (AUTO) 2025-02-28 08:32 [facility] 0 .00 x10 3/ul (missing) EOSINOPHILS # (AUTO) 2025-02-28 08:32 [facility] 0.3 10 3/ul (missing) MONOCYTES # (AUTO) 2025-02-28 08:32 [facility] 0.6 10 3/ul (missing) LYMPHOCYTES # (AUTO) 2025-02-28 08:32 [facility] 1.3 10 3/ul (missing) MEAN PLATELET VOLUME 2025-02-28 08:32 [facility] 10.8 fl (missing) RED CELL DISTRIBUTION WIDTH 2025-02-28 08:32 [facility] 13.3 % (missing) PLT - PLATELET COUNT 2025-02-28 08:32 [facility] 160 10 3/ul (missing) RED BLOOD COUNT 2025-02-28 08:32 [facility] 3.17 10 6/ul (missing) HCT - HEMATOCRIT 2025-02-28 08:32 [facility] 30.6 % (missing) MEAN CORPUSCULAR HEMOGLOBIN 2025-02-28 08:32 [facility] 30.6 pg (missing) MEAN CORPUSCULAR HGB CONC 2025-02-28 08:32 [facility] 31 .7 g/dl (missing) NEUTROPHILS # (AUTO) 2025-02-28 08:32 [facility] 5.9 10 3/ul (missing) WHITE BLOOD [...] Health <=2 (missing) (missing) AMPICILLIN 2025-03-07 12:10 [facility] <=2 (missing) This organism is NEGATIVE for Extended Spectrum Beta Lactamase TRIMETHOPRIM/SUL FAMETHOXAZOLE 2025-03-07 12:10 [facility] <=20 (missing) (missing) CEFAZOLIN 2025-03-07 12:10 [facility] <=4 (missing) (missing) RBC,URINE 2025-03-07 12:10 [facility] 0-5 /hpf (missing) UROBILINOGEN,URI NE 2025-03-07 12:10 [facility] 0.2 (NORMAL) e.u./dl (missing) CIPROFLOXACIN 2025-03-07 12:10 [facility] 1 (missing) (missing) PENICILLIN-G 2025-03-07 12:10 [facility] 1 (missing) (missing) SPECIFIC GRAVITY,URINE 2025-03-07 12:10 [facility] 1.025 (missing) (missing) CUL, URINE 2025-03-07 12:10 [facility] 100>100,000 CFU/mL (missing) (missing) CUL, URINE 2025-03-07 12:10 [facility] 1010,000-50,000 CFU/mL (missing) (missing) LEVOFLOXACIN 2025-03-07 12:10 [facility] 2 (missing) (missing) PH,URINE 2025-03-07 12:10 [facility] 6.0 ph (missing) NITROFURANTOIN 2025-03-07 12:10 [facility] 64 (missing) (missing) CLARITY,URINE 2025-03-07 12:10 [facility] CLOUDY (missing) (missing) CUL, URINE 2025-03-07 12:10 [facility] ENTENTEROCOCCUS SPECIES TO BE FURTHER IDENTIFIED (missing) (missing) O:ENTGAL 2025-03-07 12:10 [facility] ENTGALENTEROCOCCUS GALLINARUMENTEROCOCCUS GALLINARUM (missing) (missing) O:ESCCOL 2025-03-07 12:10 [facility] ESCCOLESCHERICHIA COLIESCHERICHIA COLI (missing) (missing) CUL, URINE 2025-03-07 12:10 [facility] IDMIC.2ORG 2 ID/TAMMY COM* (missing) (missing) CUL, URINE 2025-03-07 12:10 [facility] IDMICID/TAMMY COM* (missing) (missing) UR CULTURE IF IND 2025-03-07 12:10 [facility] INDICATED (missing) (missing) URINE MICROSCOPIC INDICATED? 2025-03-07 12:10 [facility] INDICATED (missing) (missing) BACTERIA,URINE 2025-03-07 12:10 [facility] Many /hpf (missing) GLUCOSE, URINE (UA) 2025-03-07 12:10 [facility] NEGATIVE mg/dl (missing) CUL, URINE 2025-03-07 12:10 [facility] ORG.2PRELIM ORG ID* (missing) (missing) NITRITE,URINE 2025-03-07 12:10 [facility] POSITIVE (missing) (missing) SQUAMOUS EPITHELIAL CELL,UR 2025-03-07 12:10 [facility] RARE Squamous (missing) (missing) CUL, URINE 2025-03-07 12:10 [facility] SENSISENSITIVITIES TO FOLLOW (missing) (missing) LEUKOCYTE ESTERASE, URINE 2025-03-07 12:10 [facility] SMALL (missing) (missing) BILIRUBIN,URINE 2025-03-07 12:10 [facility] SMALL (missing) Bilirubin can be influenced by color interference. Please correlate positive results with clinical presentation KETONES,URINE (UA) 2025-03-07 12:10 [facility] TRACE mg/dl (missing) PROTEIN,URINE 2025-03-07 12:10 [facility] TRACE mg/dl (missing) OCCULT BLOOD,URINE 2025-03-07 12:10 [facility] TRACE-INTACT (missing) (missing) CUL, URINE 2025-03-07 12:10 [facility] UCC.2ORG 2 CC* (missing) (missing) CUL, URINE 2025-03-07 12:10 [facility] UCC.6COLONY COUNT (missing) (missing) COLOR,URINE 2025-03-07 12:10 [facility] YELLOW (missing) URINE RANDOM CUL, URINE 2025-03-07 12:10 [facility] YIDENTIFICATION AND SENSITIVITIES TO FOLLOW (missing) [...] 1 (missing) (missing) CUL,WOUND (AEROBIC) 2025-04-08 12:00 [facility] 22+ GROWTH (missing) (missing) MOXIFLOXACIN 2025-04-08 12:00 [facility] 4 (missing) (missing) MINOCYCLINE 2025-04-08 12:00 [facility] 8 (missing) (missing) CUL,WOUND (AEROBIC) 2025-04-08 12:00 [facility] CC.1ORG 1 COLONY COUNT* (missing) (missing) CUL,WOUND (AEROBIC) 2025-04-08 12:00 [facility] CC.6COLONY COUNT (missing) (missing) CUL,WOUND (AEROBIC) 2025-04-08 12:00 [facility] FEW GRAM POSITIVE COCCI (missing) (missing) CUL,WOUND (AEROBIC) 2025-04-08 12:00 [facility] FEW WHITE BLOOD CELLS (missing) (missing) CUL,WOUND (AEROBIC) 2025-04-08 12:00 [facility] GPGRAM POSITIVE GROWTH TO BE FURTHER IDENTIFIED (missing) (missing) CUL,WOUND (AEROBIC) 2025-04-08 12:00 [facility] GRAM STAIN (missing) (missing) CUL,WOUND (AEROBIC) 2025-04-08 12:00 [facility] MRSA.1?MRSA? (missing) (missing) O:MRSA 2025-04-08 12:00 [facility] MRSAMETHICILLIN RESIST S. AUREUSMETHICILLIN RESIST S. AUREUS (missing) (missing) CUL,WOUND (AEROBIC) 2025-04-08 12:00 [facility] ORG.1PRELIM ORG ID* (missing) (missing) CUL,WOUND (AEROBIC) 2025-04-08 12:00 [facility] YMETHICILLIN RESISTANT STAPHYLOCOCCUS AUREUS (missing) (missing) Result panel 8 EOSINOPHILS # (AUTO) 2025-04-11 20:43 [facility] 0.0 10 3/ul (missing) NRBC ABSOLUTE COUNT (AUTO) 2025-04-11 20:43 [facility] 0 .02 x10 3/ul (missing) NUCLEATED RED BLOOD CELLS AUTO 2025-04-11 20:43 [facility] 0.1 /100wbc (missing) BASOPHILS # (AUTO) 2025-04-11 20:43 [facility] 0.1 10 3/ul (missing) MONOCYTES # (AUTO) 2025-04-11 20:43 [facility] 0.6 10 3/ul (missing) HGB - HEMOGLOBIN 2025-04-11 20:43 [facility] 11.6 g /dl (missing) WHITE BLOOD COUNT 2025-04-11 20:43 [facility] 13.5 x10 3/ul (missing) RED CELL DISTRIBUTION WIDTH 2025-04-11 20:43 [facility] 14.6 % (missing) LYMPHOCYTES # (AUTO) 2025-04-11 20:43 [facility] 2.9 10 3/ul (missing) MEAN CORPUSCULAR HEMOGLOBIN 2025-04-11 20:43 [facility] 28.4 pg (missing) MEAN CORPUSCULAR HGB CONC 2025-04-11 20:43 [facility] 30 .1 g/dl (missing) HCT - HEMATOCRIT 2025-04-11 20:43 [facility] 38.5 % (missing) RED BLOOD COUNT 2025-04-11 20:43 [facility] 4.09 10 6/ul (missing) PLT - PLATELET COUNT 2025-04-11 20:43 [facility] 411 10 3/ul (missing) NEUTROPHILS # (AUTO) 2025-04-11 20:43 [facility] 9.8 10 3/ul (missing) MEAN PLATELET VOLUME 2025-04-11 20:43 [facility] 9.8 fl (missing) MEAN CORPUSCULAR VOLUME 2025-04-11 20:43 [facility] 94.1 fl (missing) Result panel 9 LACTIC ACID, VENOUS 2025-04-11 20:57 [facility] 1.4 mmol/l N As of November 2022 testing method has changed, this may include reference ranges. Result panel 10 BILIRUBIN,TOTAL 2025-04-11 21:20 [facility] 0.6 mg/dl As of November 2022 testing method has changed, this may include reference ranges. ALBUMIN/GLOBULIN RATIO 2025-04-11 21:20 [facility] 0.8 (missing) (missing) CREATININE 2025-04-11 21:20 [facility] 0.9 mg/dl As of November 2022 testing method has changed, this may include reference ranges. MAGNESIUM 2025-04-11 21:20 [facility] 1.9 mg/dl REDRAW As of November 2022 testing method has changed, this may include reference ranges. GLUCOSE 2025-04-11 21:20 [facility] 103 mg/dl As of November 2022 testing method has changed, this may include reference ranges. CHLORIDE 2025-04-11 21:20 [facility] 109 mmol/l As of November 2022 testing method has changed, this may include reference ranges. ANION GAP 2025-04-11 21:20 [facility] 11.0 (missing) (missing) LIPASE 2025-04-11 21:20 [facility] 13 u/l As of November 2022 testing method has changed, this may include reference ranges. SODIUM 2025-04-11 21:20 [facility] 143 mmol/l REDRAW AST ASPARTATE AMINOTRANSFERASE 2025-04-11 21:20 [facility] 16 iu/l As of November 2022 testing method has changed, this may include reference ranges. BUN - BLOOD UREA NITROGEN 2025-04-11 21:20 [facility] 18 mg/dl As of November 2022 testing method has changed, this may include reference ranges. CARBON DIOXIDE - CO2 2025-04-11 21:20 [facility] 23 mmol/l As of November 2022 testing method has changed, this may include reference ranges. ALBUMIN 2025-04-11 21:20 [facility] 3.0 g/dl As of November 2022 testing method has changed, this may include reference ranges. GLOBULIN 2025-04-11 21:20 [facility] 3.7 g/dl (missing) POTASSIUM 2025-04-11 21:20 [facility] 3.7 mmol/l As of November 2022 testing method has changed, this may include reference ranges. TOTAL PROTEIN 2025-04-11 21:20 [facility] 6.7 g/dl As of November 2022 testing method has changed, this may include reference ranges. GFR - MDRD 2025-04-11 21:20 [facility] 60 (missing) The IDMS-traceable MDRD Study Equation has [...] ation/gfr/creatin ine-stand ardization, last updated July 2011. ALT ALANINE AMINOTRANSFERASE 2025-04-11 21:20 [facility] 7 iu/l As of November 2022 testing method has changed, this may include reference ranges. ALKALINE PHOSPHATASE 2025-04-11 21:20 [facility] 72 iu/l As of November 2022 testing method has changed, this may include reference ranges. CALCIUM 2025-04-11 21:20 [facility] 8.5 mg/dl As of November 2022 testing method has changed, this may include reference ranges. Result panel 11 WBC,URINE 2025-04-11 21:50 [facility] >25 /hpf (missing) CRYSTALS,URINE 2025-04-11 21:50 [facility] >50 Triple Phos /lpf (missing) UROBILINOGEN,URIN E 2025-04-11 21:50 [facility] 0.2 (NORMAL) e.u./dl (missing) SPECIFIC GRAVITY,URINE 2025-04-11 21:50 [facility] 1.005 (missing) (missing) KETONES,URINE (UA) 2025-04-11 21:50 [facility] 15 mg/dl (missing) PROTEIN,URINE 2025-04-11 21:50 [facility] 300 mg/dl (missing) RBC,URINE 2025-04-11 21:50 [facility] 6-10 /hpf (missing) PH,URINE 2025-04-11 21:50 [facility] 8.5 ph (missing) UR CULTURE IF IND 2025-04-11 21:50 [facility] INDICATED (missing) (missing) URINE MICROSCOPIC INDICATED? 2025-04-11 21:50 [facility] INDICATED (missing) (missing) LEUKOCYTE ESTERASE, URINE 2025-04-11 21:50 [facility] LARGE (missing) (missing) BACTERIA,URINE 2025-04-11 21:50 [facility] Many /hpf (missing) MUCUS,URINE 2025-04-11 21:50 [facility] Marked Strands (missing) (missing) NITRITE,URINE 2025-04-11 21:50 [facility] NEGATIVE (missing) (missing) BILIRUBIN,URINE 2025-04-11 21:50 [facility] NEGATIVE (missing) Bilirubin can be influenced by color interference. Please correlate positive results with clinical presentation GLUCOSE, URINE (UA) 2025-04-11 21:50 [facility] NEGATIVE mg/dl (missing) SQUAMOUS EPITHELIAL CELL,UR 2025-04-11 21:50 [facility] NONE SEEN (missing) (missing) OCCULT BLOOD,URINE 2025-04-11:50 [facility] SMALL (missing) (missing) CLARITY,URINE 2025-04-11 21:50 [facility] TURBID (missing) (missing) COLOR,URINE 2025-04-11 21:50 [facility] YELLOW (missing) URINE RANDOM Social History date description facility
[2025-04-12] MEDS ORDERED: ONDANSETRON 4 MG/2 ML VIAL IVP PRN (00:47)
[2025-04-12] MEDS: LACTATED RINGERS 1,000 ML IV SCH (01:02)
[2025-04-12] MEDS: SODIUM CHLORIDE FLUSH 0.9% 10 ML SYRINGE IVP SCH ×2 (01:03)
[2025-04-12] MEDS: HALOPERIDOL 5 MG/ML VIAL IM ONE (01:46)
[2025-04-12] MEDS: COD LIVER OIL/ZINC OXIDE 113 GM TUBE TOP PRN (01:59)
[2025-04-12 06:23] LABS: HCT - HEMATOCRIT 33.2 % (37.0-47.0); HGB - HEMOGLOBIN 9.9 g/dL (12.0-16.0); MEAN PLATELET VOLUME 10.0 fL (7.9-10.8); NRBC ABSOLUTE COUNT (AUTO) 0.00 x10^3/uL; NUCLEATED RED BLOOD CELLS AUTO 0.0 /100WBC; PLT - PLATELET COUNT 323 10^3/uL (130-450); RED CELL DISTRIBUTION WIDTH 14.5 % (12.0-15.0)
[2025-04-12 06:37] LABS: BUN - BLOOD UREA NITROGEN 17.0 mg/dL (6-20); CARBON DIOXIDE - CO2 23.0 mmol/L (21-32); CREATININE 0.6 mg/dL (0.6-1.3); GFR - MDRD 95.0 (>89)
--- NOTE | 2025-04-12 07:29 | PROVIDER PROGRESS NOTE ---
Subjective Prog Note Date Prog Note Date: 04/12/25 Prog Note Time: 07:23 Subjective Subjective: 84-year-old female with a past medical history of dementia, recent hip fracture which was surgically repaired, discharged from this hospitalization February to intermediate facility. She comes back in with UTI and altered mentation. Patient was admitted by the java software last evening. Overnight vital signs remained stable. She has an indwelling Perdomo in place which she did not leave this hospital with last time. Her labs this morning were significant for K of 3.2, reasonably normal calcium corrected for albumin. WBC 11.4. Hgb 9.9, similar to last hospitalization. Urine is alkaline pH 8.5, heavy protein, ketones, occult blood, large leuk esterase, WBC with many bacteria seen. Nitrate negative. In review of her history, she has a recent leg wound her right lower extremity that is culturing positive for MRSA. It is unclear to me the context in which this culture was obtained. If it is superficial, there is not necessarily reason to treat, but if it is from a deep wound, she should be on MRSA coverage. Long conversation with the patient's outside in the hallway today. See separate ACP note. Current Medications Current Medications Current Medications: Current Medications Generic Name Dose Route Start Last Admin Trade Name Freq PRN Reason Stop Dose Admin Famotidine 20 mg 04/12/25 09:00 Famotidine 20 Mg/2 Ml Vial IVP BID MACHELLE Ceftriaxone Sodium 1 gm/ 100 mls @ 200 mls/hr 04/12/25 09:00 Sodium Chloride IV DAILY MACHELLE Lactated Ringer's 1,000 mls @ 50 mls/hr 04/12/25 00:47 04/12/25 01:02 Lr IV 50 mls/hr .Q20H MACHELLE Administration Memantine 10 mg 04/12/25 09:00 Memantine 5 Mg Tablet PO BID MACHELLE Nystatin 1 applic 04/12/25 09:00 Nystatin Cream 15 Gm Tube TOP BID MACHELLE Ondansetron HCl 4 mg 04/12/25 00:47 Ondansetron 4 Mg/2 Ml Vial IVP Q6HR PRN Nausea / Vomiting Sodium Chloride 10 ml 04/12/25 00:09 Sodium Chloride Flush 0.9% 10 Ml Syringe IVP PRN PRN NEEDED PER PROVIDER ORDERS Sodium Chloride 10 ml 04/12/25 01:00 04/12/25 01:03 Sodium Chloride Flush 0.9% 10 Ml Syringe IVP 10 ml 0100,0900,1700 MACHELLE Administration Sodium Chloride 10 ml 04/12/25 00:47 Sodium Chloride Flush 0.9% 10 Ml Syringe IVP PRN PRN NEEDED PER PROVIDER ORDERS Sodium Chloride 10 ml 04/12/25 01:00 04/12/25 01:03 Sodium Chloride Flush 0.9% 10 Ml Syringe IVP Not Given 0100,0900,1700 MACHELLE Tamsulosin HCl 0.4 mg 04/12/25 09:00 Tamsulosin 0.4 Mg Capsule PO DAILY MACHELLE Zinc Oxide 113 gm 04/12/25 01:39 04/12/25 01:59 Cod Liver Oil/Zinc Oxide 113 Gm Tube TOP 1 applic PRN PRN Administration Skin Care Objective Vital Signs/Intake & Output Reviewed Vital Signs: Yes Vital Signs: Vital Signs x48h Temp Pulse Pulse Resp BP BP Pulse Ox 04/12/25 01:00 36.6 C 97 18 117/76 97 04/12/25 00:54 87 18 128/87 96 04/12/25 00:00 88 17 133/87 H 96 Intake & Output: Intake & Output 04/09/25 04/10/25 04/11/25 04/12/25 23:59 23:59 23:59 23:59 Output Total 175 / 175 Balance -175 / -175 Weight (kg) 76.8 kg 70.5 kg Objective Comments/Other: GEN: Nonacute distress. Appears stated age. Confused HEENT: NC/AT, normal appearance of external ears and nose. Hearing baseline. Cardiac: Regular rate and rhythm, no murmurs. Palpable distal pulses. Warm extremities Pulm: Lungs CTA bilaterally, no cough, no wheezes. No adventitial lung sounds. Normal effort on room air Abdomen: Soft, nontender, nondistended. No rebound or guarding Extremities: Dressed incision in the right lower extremity. No surrounding erythema. Some drainage per nursing and there was dressing change. Neuro: Face symmetric, CN II through XII intact grossly. No focal neurologic deficits. Speech is fluent. Psych: Unable to assess. Very confused. Tangential. Lab Results 04/12/25 05:30 04/12/25 05:30 Other Labs: Lab Results x24hrs 11/04/11/25 04/11/25 Range/Units 05:30 21:50 21:20 WBC 11.4 H (4.8-10.8) x10^3/uL RBC 3.48 L (4.20-5.40) 10^6/uL Hgb 9.9 L (12.0-16.0) g/dL Hct 33.2 L (37.0-47.0) % MCV 95.4 (81.0-99.0) fL MCH 28.4 (27.0-31.0) pg MCHC 29.8 L (32.0-36.0) g/dL RDW 14.5 (12.0-15.0) % Plt Count 323 (130-450) 10^3/uL MPV 10.0 (7.9-10.8) fL Neut # (Auto) 8.4 H (1.5-6.6) 10^3/uL Lymph # (Auto) 2.4 (1.5-3.5) 10^3/uL Sargent # (Auto) 0.5 (0.0-1.0) 10^3/uL Eos # (Auto) 0.1 (0.0-0.7) 10^3/uL Baso # (Auto) 0.1 (0.0-0.1) 10^3/uL Absolute Nucleated RBC 0.00 x10^3/uL Nucleated RBC % 0.0 /100WBC Sodium 145 143 (135-145) mmol/L Potassium 3.2 L 3.7 (3.5-4.5) mmol/L Chloride 114 H 109 (101-111) mmol/L Carbon Dioxide 23 23 (21-32) mmol/L Anion Gap 8.0 11.0 (6-13) BUN 17 18 (6-20) mg/dL Creatinine 0.6 0.9 (0.6-1.3) mg/dL Estimated GFR (MDRD) 95 60 L (>89) Glucose 99 103 (74-104) mg/dL Lactic Acid (0.5-2.2) mmol/L Calcium 7.9 L 8.5 (8.5-10.3) mg/dL Magnesium 1.9 (1.7-2.3) mg/dL Total Bilirubin 0.6 (0.2-1.0) mg/dL AST 16 (10-42) IU/L ALT 7 L (10-60) IU/L Alkaline Phosphatase 72 (42-121) IU/L Total Protein 6.7 (6.4-8.9) g/dL Albumin 3.0 L (3.2-5.5) g/dL Globulin 3.7 (2.1-4.2) g/dL Albumin/Globulin Ratio 0.8 L (1.0-2.2) Lipase 13 (11-82) U/L Urine Color YELLOW Urine Clarity TURBID (CLEAR) Urine pH 8.5 H (5.0-7.5) PH Ur Specific Conway 1.005 (1.002-1.030) Urine Protein 300 H (NEGATIVE) mg/dL Urine Glucose (UA) NEGATIVE (NEGATIVE) mg/dL Urine Ketones 15 H (NEGATIVE) mg/dL Urine Occult Blood SMALL (NEGATIVE) Urine Nitrite NEGATIVE (NEGATIVE) Urine Bilirubin NEGATIVE (NEGATIVE) Urine Urobilinogen 0.2 (NORMAL) (NORMAL) E.U./dL Ur Leukocyte Esterase LARGE H (NEGATIVE) Urine RBC 6-10 H (0-5) /HPF Urine WBC >25 H (0-5) /HPF Ur Squamous Epith Cells NONE SEEN (<= Few) Urine Crystals >50 Triple Phos /LPF Urine Bacteria Many H (None Seen) /HPF Urine Mucus Marked Strands Ur Microscopic Review INDICATED Urine Culture Comments INDICATED 04/11/25 04/11/25 Range/Units 20:57 20:43 WBC 13.5 H (4.8-10.8) x10^3/uL RBC 4.09 L (4.20-5.40) 10^6/uL Hgb 11.6 L (12.0-16.0) g/dL Hct 38.5 (37.0-47.0) % MCV 94.1 (81.0-99.0) fL MCH 28.4 (27.0-31.0) pg MCHC 30.1 L (32.0-36.0) g/dL RDW 14.6 (12.0-15.0) % Plt Count 411 (130-450) 10^3/uL MPV 9.8 (7.9-10.8) fL Neut # (Auto) 9.8 H (1.5-6.6) 10^3/uL Lymph # (Auto) 2.9 (1.5-3.5) 10^3/uL Sargent # (Auto) 0.6 (0.0-1.0) 10^3/uL Eos # (Auto) 0.0 (0.0-0.7) 10^3/uL Baso # (Auto) 0.1 (0.0-0.1) 10^3/uL Absolute Nucleated RBC 0.02 x10^3/uL Nucleated RBC % 0.1 /100WBC Sodium (135-145) mmol/L Potassium (3.5-4.5) mmol/L Chloride (101-111) mmol/L Carbon Dioxide (21-32) mmol/L Anion Gap (6-13) BUN (6-20) mg/dL Creatinine (0.6-1.3) mg/dL Estimated GFR (MDRD) (>89) Glucose (74-104) mg/dL Lactic Acid 1.4 (0.5-2.2) mmol/L Calcium (8.5-10.3) mg/dL Magnesium (1.7-2.3) mg/dL Total Bilirubin (0.2-1.0) mg/dL AST (10-42) IU/L ALT (10-60) IU/L Alkaline Phosphatase (42-121) IU/L Total Protein (6.4-8.9) g/dL Albumin (3.2-5.5) g/dL Globulin (2.1-4.2) g/dL Albumin/Globulin Ratio (1.0-2.2) Lipase (11-82) U/L Urine Color Urine Clarity (CLEAR) Urine pH (5.0-7.5) PH Ur Specific Conway (1.002-1.030) Urine Protein (NEGATIVE) mg/dL Urine Glucose (UA) (NEGATIVE) mg/dL Urine Ketones (NEGATIVE) mg/dL Urine Occult Blood (NEGATIVE) Urine Nitrite (NEGATIVE) Urine Bilirubin (NEGATIVE) Urine Urobilinogen (NORMAL) E.U./dL Ur Leukocyte Esterase (NEGATIVE) Urine RBC (0-5) /HPF Urine WBC (0-5) /HPF Ur Squamous Epith Cells (<= Few) Urine Crystals /LPF Urine Bacteria (None Seen) /HPF Urine Mucus Ur Microscopic Review Urine Culture Comments Assessment/Plan Problem List (1) Acute alteration in mental status: Impression: Admitted with acute on chronic alteration in her mental status. Thought to be secondary to UTI as below. She has had dementia for several years, but relatively well compensated until this year. She has had an aggressive decline over the last 12 months. Culminating in a ground-level fall with hip fracture 6 weeks ago. This been surgically repaired. She has not been able to ambulate on her own since this fall. She went to [facility] for anticipation of rehab, but has not been able to do any rehab. She is constipated on her CT scan. Large distal stool ball on my personal read. - See ACP note from today - Hospice consult has been placed - Palliative care consult placed, she follows with them already - Slow transition to comfort measures only. Her and POA, is realistic, but is also wanting to be at bedside - Will continue treating acute infection with a hope to discharge home with hospice - Will discontinue fluids, patient's arm is getting puffy - Will continue treating UTI as below - Delirium precautions, try and maintain a normal sleep-wake cycle - Will add every 24 melatonin for 7 PM - Zyprexa available for agitation that puts patient at risk from a safety perspective - Bowel regimen, may need suppository (2) Urinary retention: (3) Acute UTI: Impression: Patient left here without a Perdomo catheter in place when she was discharged on 03/02. In discussion with her who sits with her at bedside and has done so since her discharge from this hospital, they replaced the catheter early in her stay at [facility]. They then removed this, and did recurrent straight catheterizations when needed. She failed a trial of void for several days. And then her urinary catheter was replaced just within the last 5 days prior to admission Urinalysis on arrival is indicative of infection. Growing Proteus. She has no history of resistant bacteria in her urine. - Continue ceftriaxone, Likely treat for 5 days - CBC a.m. - Continue Perdomo, indefinitely as she transitions to comfort care (4) Atrial fibrillation: Impression: Rate controlled. Regular rhythm. Overall sinus. Not on rate controlling agents. Not on anticoagulation - Continue to monitor clinically. Qualifiers: Atrial fibrillation type: paroxysmal Qualified Code(s): I48.0 - Paroxysmal atrial fibrillation (5) Leukocytosis: Impression: Most likely in the setting of UTI as above. She also has MRSA that is growing in her superficial wound cultures that were swabbed on 04/08. There is no documentation surrounding this that I can find. Suspect she is just colonized on the surface of her skin. The wound itself does not look particularly infectious. - Will evaluate next dressing change - Treat UTI as above - CBC AM I spent a total of 42 minutes in the care of this patient today. This time was spent reviewing labs, vital signs, imaging, interviewing and examining the patient, and discussing plan of care with them and their other care providers. Treating condition which is chronic and progressive. Extensive conversations requiring independent historian with patient's . Review of labs as above. Review of imaging as above. Personal interpretation of CT scan as above. Decision made to de-escalate care and initiate hospice. [id number] Qualifiers: Leukocytosis type: unspecified Qualified Code(s): D72.829 - Elevated white blood cell count, unspecified
[2025-04-12] MEDS: MEMANTINE 5 MG TABLET PO SCH (09:07)
[2025-04-12] MEDS: FAMOTIDINE 20 MG/2 ML VIAL IVP SCH (09:07)
[2025-04-12] MEDS: NYSTATIN CREAM 15 GM TUBE TOP SCH (09:07)
[2025-04-12] MEDS: cefTRIAXone 1 GM in SODIUM CHLORIDE 0.9% MINIBAG 100 ML IV SCH (09:07)
[2025-04-12] MEDS: TAMSULOSIN 0.4 MG CAPSULE PO SCH (09:07)
[2025-04-12] MEDS ORDERED: ONDANSETRON ODT 4 MG TABLET TL PRN (15:36)
[2025-04-12] MEDS ORDERED: BISACODYL 10 MG SUPP PR PRN (15:38)
[2025-04-12] MEDS ORDERED: MINERAL OIL ENEMA 133 ML BOTTLE RC PRN (15:38)
[2025-04-12] MEDS ORDERED: ACETAMINOPHEN 325 MG TABLET PO PRN (15:38)
--- NOTE | 2025-04-12 15:41 | ADVANCE CARE PLANNING NOTE ---
Advance Care Planning Planning Encounter Date: 04/12/25 Time: 13:30 Purpose: Progression of disease Parties in Attendance: Patient's , Merlin Decisional Capacity of the Patient: Patient is acutely encephalopathic, but even at her chronic baseline dementia, is nondecisional. Diagnosis for Encounter (1) Acute alteration in mental status: (2) Urinary retention: (3) Acute UTI: (4) Atrial fibrillation: Qualifiers: Atrial fibrillation type: paroxysmal Qualified Code(s): I48.0 - Paroxysmal atrial fibrillation (5) Leukocytosis: Qualifiers: Leukocytosis type: unspecified Qualified Code(s): D72.829 - Elevated white blood cell count, unspecified Encounter Subjective/Patient's Story: Patient is well-known to me. I had extensive conversations with Merlin about Judy and her life before her dementia. She was a vibrant woman. She traveled the world. 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 Merlin and her later in life. Second marriage for both of them. 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 She had a keen intellect. They have had a good life together. They traveled frequently. Even after her diagnosis of Alzheimer's, they were able to maintain their independence. After multiple discussions with palliative care, Merlin was intending to move them into assisted living, as they were struggling to maintain at their home. They had a location and a deposit placed on a location at the time of her hip fracture. Objective/Medical Story: Patient's had a precipitous decline with regard to her Alzheimer's. She does not have any baseline health issues. Other than her dementia, she had took some eyedrops, but has never had any cardiovascular disease or diabetes. She has been healthy throughout her whole life. She had dementia diagnosed several years ago. She was aware of her cognitive decline. It was slow progression at first, but in the last 9 to 12 months prior to her breaking her hip, she had precipitous decline. She was falling more frequently. Since she broke her hip, she has had even further decline. She fractured her hip in mid February. It was surgically repaired. She was recommended to discharge to [facility] for further rehab with anticipation that she would discharge from there to assisted living with her . Since being in rehab, she is now been working with therapy. She was unable to stand safely with them. They were having her do leg strengthening exercises from a wheelchair which they would Susan lift her to. Merlin does not know if she has been able to tolerate those even for the last week prior to arrival. She presents this hospitalization with acute on chronic encephalopathy likely in the setting of a catheter associated UTI. She is being treated with antibiotics. Goals of Care: Merlin has very clear understanding that Judy's chance of meaningful recovery from this episode and her already cognitively fragile state is unlikely. He says "she is not coming back from this". "She would like to live like this". He accurately reflects that she has not made much progress since going to [facility]. He is worried that their plan to move into assisted living together is vanishing. He has been dealing with his own health conditions, and having to go off [place] for his own health care appointments. They do not have significant social supports in the community. They have been unable to work with palliative care team at [facility], apparently the palliative care providers are not allowed in to [facility] by policy. I asked Merlin if he feels like now is the time to engage in hospice. He says "I think this is the time". Plan: - Hospice referral placed - Palliative referral placed - Modified comfort measures for now - Will continue IV antibiotics - Discontinue IV fluids - Liberalize diet Code Status: Do Not Attempt Resuscitation Time spent on advance care plannin
[2025-04-12] MEDS: MELATONIN 3 MG TABLET PO SCH (18:36)
[2025-04-12] MEDS ORDERED: MELATONIN 3 MG TABLET PO SCH (19:00)
[2025-04-13 06:32] LABS: HCT - HEMATOCRIT 32.3 % (37.0-47.0); HGB - HEMOGLOBIN 9.5 g/dL (12.0-16.0); MEAN PLATELET VOLUME 9.7 fL (7.9-10.8); NRBC ABSOLUTE COUNT (AUTO) 0.00 x10^3/uL; NUCLEATED RED BLOOD CELLS AUTO 0.0 /100WBC; PLT - PLATELET COUNT 284 10^3/uL (130-450); RED CELL DISTRIBUTION WIDTH 14.5 % (12.0-15.0)
[2025-04-13 06:51] LABS: BUN - BLOOD UREA NITROGEN 14.0 mg/dL (6-20); CARBON DIOXIDE - CO2 23.0 mmol/L (21-32); CREATININE 0.4 mg/dL (0.6-1.3); GFR - MDRD 152.0 (>89)
--- NOTE | 2025-04-13 07:33 | PROVIDER PROGRESS NOTE ---
Subjective Prog Note Date Prog Note Date: 04/13/25 Prog Note Time: 07:33 Subjective Subjective: No acute events overnight. Vital signs remained stable. Her potassium is 3.2 this morning. This may be effect of the antibiotic. Will replace orally. Case management discussed with the patient's yesterday, his choice for [facility]. Comfort orders placed this morning. Will complete course of antibiotics. Patient still remains encephalopathic, she is nonsensical in her speech.. She was able to speak with nursing last night about some of her past. She denies any pains. She is grateful for her care. Current Medications Current Medications Current Medications: Current Medications Generic Name Dose Route Start Last Admin Trade Name Freq PRN Reason Stop Dose Admin Acetaminophen 650 mg 04/12/25 15:38 Acetaminophen 325 Mg Tablet PO Q4HR PRN Pain or Fever > 38C (100.4F) Bisacodyl 10 mg 04/12/25 15:38 Bisacod[address] DAILY PRN Constipation Ceftriaxone Sodium 1 gm/ 100 mls @ 200 mls/hr 04/12/25 09:00 04/12/25 12:57 Sodium Chloride IV Infused DAILY MACHELLE Infusion Melatonin 6 mg 04/12/25 19:00 04/12/25 18:36 Melatonin 3 Mg Tablet PO 6 mg Q24H MACHELLE Administration Mineral Oil 133 ml 04/12/25 15:38 Mineral Oil Enema 133 Ml Bottle RC 04/17/25 15:37 ONCE PRN Constipation Nystatin 1 applic 04/12/25 09:00 04/12/25 18:41 Nystatin Cream 15 Gm Tube TOP 1 applic BID MACHELLE Administration Olanzapine 5 mg 04/12/25 15:35 Olanzapine Odt 5 Mg Tablet TL DAILY PRN Agitation Ondansetron HCl 4 mg 04/12/25 15:36 Ondansetron Odt 4 Mg Tablet TL Q4HR PRN Nausea / Vomiting Sodium Chloride 10 ml 04/12/25 00:09 Sodium Chloride Flush 0.9% 10 Ml Syringe IVP PRN PRN NEEDED PER PROVIDER ORDERS Sodium Chloride 10 ml 04/12/25 01:00 04/13/25 04:51 Sodium Chloride Flush 0.9% 10 Ml Syringe IVP Not Given 0100,0900,1700 MACHELLE Sodium Chloride 10 ml 04/12/25 00:47 Sodium Chloride Flush 0.9% 10 Ml Syringe IVP PRN PRN NEEDED PER PROVIDER ORDERS Sodium Chloride 10 ml 04/12/25 01:00 04/13/25 04:52 Sodium Chloride Flush 0.9% 10 Ml Syringe IVP Not Given 0100,0900,1700 MACHELLE Tamsulosin HCl 0.4 mg 04/12/25 09:00 04/12/25 09:07 Tamsulosin 0.4 Mg Capsule PO 0.4 mg DAILY MACHELLE Administration Zinc Oxide 113 gm 04/12/25 01:39 04/12/25 01:59 Cod Liver Oil/Zinc Oxide 113 Gm Tube TOP 1 applic PRN PRN Administration Skin Care Objective Vital Signs/Intake & Output Reviewed Vital Signs: Yes Vital Signs: Vital Signs x48h Temp Pulse Resp BP Pulse Ox 04/13/25 00:50 36.6 C 82 18 129/68 96 Intake & Output: Intake & Output 04/10/25 04/11/25 04/12/25 04/13/25 23:59 23:59 23:59 23:59 Intake Total 4 / 2043 50 / 50 Output Total 625 / 625 275 / 275 Balance 1419 / 1419 -225 / -225 Weight (kg) 76.8 kg 70.5 kg Objective Comments/Other: GEN: Nonacute distress. Appears stated age. Confused HEENT: NC/AT, normal appearance of external ears and nose. Hearing baseline. Cardiac: Regular rate and rhythm, no murmurs. Palpable distal pulses. Warm extremities Pulm: Lungs CTA bilaterally, no cough, no wheezes. No adventitial lung sounds. Normal effort on room air Abdomen: Soft, nontender, nondistended. No rebound or guarding Extremities: Dressed incision in the right lower extremity. No surrounding erythema. Some drainage per nursing and there was dressing change. Neuro: Face symmetric, CN II through XII intact grossly. No focal neurologic deficits. Speech is fluent. Psych: Mood euthymic. Very confused. Tangential. Lab Results 04/13/25 06:22 04/13/25 06:22 Other Labs: Lab Results x24hrs 04/13/25 Range/Units 06:22 WBC 7.8 (4.8-10.8) x10^3/uL RBC 3.33 L (4.20-5.40) 10^6/uL Hgb 9.5 L (12.0-16.0) g/dL Hct 32.3 L (37.0-47.0) % MCV 97.0 (81.0-99.0) fL MCH 28.5 (27.0-31.0) pg MCHC 29.4 L (32.0-36.0) g/dL RDW 14.5 (12.0-15.0) % Plt Count 284 (130-450) 10^3/uL MPV 9.7 (7.9-10.8) fL Neut # (Auto) 4.9 (1.5-6.6) 10^3/uL Lymph # (Auto) 2.0 (1.5-3.5) 10^3/uL Ogle # (Auto) 0.4 (0.0-1.0) 10^3/uL Eos # (Auto) 0.4 (0.0-0.7) 10^3/uL Baso # (Auto) 0.0 (0.0-0.1) 10^3/uL Absolute Nucleated RBC 0.00 x10^3/uL Nucleated RBC % 0.0 /100WBC Sodium 143 (135-145) mmol/L Potassium 3.1 L (3.5-4.5) mmol/L Chloride 113 H (101-111) mmol/L Carbon Dioxide 23 (21-32) mmol/L Anion Gap 7.0 (6-13) BUN 14 (6-20) mg/dL Creatinine 0.4 L (0.6-1.3) mg/dL Estimated GFR (MDRD) 152 (>89) Glucose 89 (74-104) mg/dL Calcium 8.0 L (8.5-10.3) mg/dL Assessment/Plan Problem List (1) Acute alteration in mental status: Impression: Patient will d/c to hospice. [facility] to intake on 04/14. Admitted with acute on chronic alteration in her mental status. Thought to be secondary to UTI as below. She has had dementia for several years, but relatively well compensated until this year. She has had an aggressive decline over the last 12 months. Culminating in a ground-level fall with hip fracture 6 weeks ago. This been surgically repaired. She has not been able to ambulate on her own since this fall. She went to [facility] for anticipation of rehab, but has not been able to do any rehab. She is constipated on her CT scan. Large distal stool ball on my personal read. - See ACP note from today - Hospice intake scheduled for 04/14. Discharge by . - Will go back to [facility] and have hospice services there. - Palliative may see tomorrow, she will discharge early - UTI antibiotics stop tomorrow - Delirium precautions, try and maintain a normal sleep-wake cycle - Will add every 24 melatonin for 7 PM - Zyprexa available for agitation that puts patient at risk from a safety perspective - Bowel regimen, may need suppository - Comfort measure orders placed (2) Urinary retention: (3) Acute UTI: Impression: Stable. Patient's urine is still very red. Proteus growing not yet speciated and sensitivities not yet back Patient left here without a Perdomo catheter in place when she was discharged on 03/02. In discussion with her who sits with her at bedside and has done so since her discharge from this hospital, they replaced the catheter early in her stay at [facility]. They then removed this, and did recurrent straight catheterizations when needed. She failed a trial of void for several days. And then her urinary catheter was replaced just within the last 5 days prior to admission Urinalysis on arrival is indicative of infection. Growing Proteus. She has no history of resistant bacteria in her urine. - One more dose of antibiotics tomorrow morning, can discharge off of antibiotics - Continue Perdomo, indefinitely as she transitions to comfort care - Further labs deferred in the setting of her comfort measure transition. (4) Atrial fibrillation: Impression: Rate controlled. Regular rhythm. Overall sinus. Not on rate controlling agents. Not on anticoagulation - Continue to monitor clinically. Qualifiers: Atrial fibrillation type: paroxysmal Qualified Code(s): I48.0 - Paroxysmal atrial fibrillation (5) Leukocytosis: Impression: Most likely in the setting of UTI as above. She also has MRSA that is growing in her superficial wound cultures that were swabbed on 04/08. There is no documentation surrounding this that I can find. Suspect she is just colonized on the surface of her skin. The wound itself does not look particularly infectious. 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 This time was spent reviewing labs, vital signs, imaging, interviewing and examining the patient, and discussing plan of care with them and their other care providers. Treating chronic stable conditions, at least 2. Data review as above. Prescription drug management as above. [id number] Qualifiers: Leukocytosis type: unspecified Qualified Code(s): D72.829 - Elevated white blood cell count, unspecified
[2025-04-13] MEDS ORDERED: GLYCOPYRROLATE 1 MG/5 ML VIAL SUBQ PRN (07:35)
[2025-04-13] MEDS ORDERED: METOCLOPRAMIDE 10 MG TABLET PO PRN (07:35)
[2025-04-13] MEDS: POTASSIUM CHLORIDE 20 MEQ/15 ML UDC PO SCH (08:29)
[2025-04-13] MEDS: MORPHINE SOL 10 MG/0.5 ML ORAL SYRINGE SL PRN (08:29)
--- NOTE | 2025-04-13 12:32 | PHARMACY PROGRESS NOTE ---
Best Possible Medication History Admit Date and Time: 04/12/25 [id number] Home Medications Medication Instructions Recorded Confirmed Type latanoprost 0.005 % eye drops 1 drp ophthalmic (eye) Q PM 02/23/24 04/13/25 History acetaminophen 500 mg tablet 500 mg PO Q6H PRN pain 04/13/25 History loperamide 2 mg tablet 2 mg PO Q6H PRN loose stool 10/05/24 04/13/25 History memantine 10 mg tablet (Namenda) 10 mg PO BID 12/07/24 04/13/25 History dorzolamide 2 % eye drops 1 drp ophthalmic (eye) BID 0 12/31/24 04/13/25 History timolol maleate 0.5 % eye drops 1 drp ophthalmic (eye) DAILY 02/25/25 04/13/25 History aspirin 81 mg tablet,delayed 162 mg (2 x 81 mg) PO REGINE LY VTE 03/02/25 04/13/25 Rx release Prophylaxis 22 days #44 tabs melatonin 3 mg tablet 6 mg (2 x 3 mg) PO Q24H #60 tabs 03/02/25 04/13/25 Rx bisacodyl 10 mg rectal suppository 10 mg WA DAILY PRN constipation 04/13/25 04/13/25 History (Dulcolax (bisacodyl)) cholecalciferol (vitamin D3) 25 2,000 unit PO DAILY 04/13/25 History mcg (1,000 unit) tablet diclofenac sodium 1 % topical gel 2 g topical Q8H 06/0704/13/25 History (Arthritis Pain (diclofenac)) lidocaine 4 % topical patch 2 patch topical Q6H PRN pa in 04/13/25 04/13/25 History (Salonpas (lidocaine)) mineral oil (Fleet Mineral Oil 118 ml WA DAILY PRN con stipation 04/13/25 04/13/25 History enema) multivitamin (Daily Multi-Vitamin 1 tab PO DAILY 04/1304/13/25 History tablet) naloxone 4 mg/actuation nasal 4 mg intranasal Q2M PRN opioid 04/13/25 04/13/25 History spray (Narcan) overdose oxycodone 5 mg tablet 5 mg PO Q6H PRN pain 5 04/13/25 History polyethylene glycol 3350 17 17 g PO DAILY PRN constipa tion 04/13/25 04/13/25 History gram/dose oral powder (ClearLax) sennosides 8.6 mg tablet (senna) 8.6 mg PO DAILY PRN c onstipation 04/13/2506/07 History tamsulosin 0.4 mg capsule 0.4 mg PO HS 04/13/25 History Processed by: Pharmacy Medications reviewed in ED?: No Medication History completed: Yes Patient Interview: Pt unable to participate Secondary Source(s): Facility MAR as ONLY source (Medication list from [facility]) [facility] Statement: As the person ultimately responsible for medication therapy, providers are able to order a medication from an existing home medication list in [facility] via the "Reconcile Routine" prior to Confirmation of that medication by computer network support specialist. Such practice is discouraged except when the physician, in their clinical radha gment, deems that a medical need exists for a medication without regard to previous use.
--- NOTE | 2025-04-14 10:11 | Discharge Summary ---
"Discharge Summary Admit Date: 04/11/25 Discharge Date: 04/14/25 Discharging Provider: Mario Dubon Primary Care Provider: Abby Medel Code Status: Do Not Attempt Resuscitation Discharge Facility Name: [facility] DIAGNOSES Discharge Diagnoses with Status of Each Condition: ## Alzheimer's dementia, progressive Patient has had progression of her Alzheimer's. She is no longer eating or drinking. She is hospice appropriate. Discussed with family. She has had progressive decline since her hip fracture over 6 weeks ago. Her is agreeable that she is likely not improving from this and agrees that it is time for hospice. She discharges back to [facility] on 04/14 for ongoing hospice care there. [facility] hospice is going to take over starting 04/14. - Comfort meds have been sent to [facility] ## Acute on chronic encephalopathy, resolved In the setting of UTI. She has been treated for UTI as below. Her acute decompensation has resolved. ## Urinary tract infection ## Acute urinary retention Patient presented with acute UTI. Urine was growing Proteus species. No history of resistant species in her urine. She was treated with 3 days of ceftriaxone. Urine now more clear. Ramos exchanged on admission. She leaves with Ramos in place on hospice. HPI History of Present Illness: This is a 84 yo female with advanced dementia (in a memory care unit), afib not on AC, chronic SP catheter, recently d/c from here end of february after undergoing right hip surgery on 02/24 is sent back to here for weakness, poor appetite, making nonsensical statements and sounds worse than her dementia baseline found here to have a CA-UTI being admitted for fluids and abx. . workup in er shows labs benign, vitals stable. UA is however concerning for infection. ramos is being changed in ER, unsure when was last changed patient unable to provide details history d/t dementia/ ams and is aao x1 and not septic / toxic appearing . management in ER: fluids, rocephi, cultures see plan of care below d/w nurse, ed md, and attempted with patient CONSULTS | PROCEDURES Consultations: None Procedures: CT abdomen pelvis 04/11 HOSPITAL COURSE Hospital Course: 84-year-old female well-known to me. Was seen at this hospital 6 weeks ago after a ground-level fall with resultant right hip fracture. This has been surgically repaired during the last hospitalization. She had a prolonged hospitalization last time due to encephalopathy, limited participation in PT. She has an advancing dementia over the last year, that was slowly progressive over several years preceding. Her is slowly coming to terms with this. They were previously independent in the community and making progress towards moving into assisted living when she fell. Since her fall, she has had progressive decompensation. She is gone to nursing presumptively for further rehabilitation, but she has not been able to work with therapies there. She is unable to participate well with them. She has not been able to ambulate since her last discharge. At some point during her [facility] stay, a Ramos catheter was replaced, her says this was within a week of her hospitalization. She developed a CAUTI bringing her to this hospitalization with acute decompensation of her mental status. Her urine is growing Proteus. She was treated with 3 days of empiric antibiotic, and her urine is clear. Her mentation improved intervally. After discussion with her , she has not been eating for the last 2 weeks at the [facility] facility. Even after treatment of her UTI, she still is refusing food most of the time. She would be hospice appropriate given her advancement of her dementia. is in agreement. She is discharging back to [facility] for ongoing care taken over by [facility]. Comfort measures are in place. She has a DNR POLST. Patient was seen and evaluated on the day of discharge. Her Ramos catheter is still in place. Her urine which was bloody on admission, is now straw-colored. Clear. She denies any focal pains. She does not initiate feeding, but when I ask her if she is thirsty and would take a drink, she eventually participates. By stick the straw in her mouth she will drink. Her lips are dry. No other acute interventions are planned. She is medically ready for discharge back to [facility]. ALLERGIES Allergies Allergy/AdvReac Type Severity Reaction Status Date / Time No Known Drug Allergies Allergy Verified 03/03/25 14:06 MEDICATIONS Ambulatory Orders Medication Instructions Recorded Confirmed latanoprost 0.005 % eye drops 1 drp ophthalmic (eye) Q PM 02/23/24 04/13/25 acetaminophen 500 mg tablet 500 mg PO Q6H PRN pain 04/13/25 loperamide 2 mg tablet 2 mg PO Q6H PRN loose stool 10/05/24 04/13/25 dorzolamide 2 % eye drops 1 drp ophthalmic (eye) BID 0 12/31/24 04/13/25 timolol maleate 0.5 % eye drops 1 drp ophthalmic (eye) DAILY 02/25/25 04/13/25 melatonin 3 mg tablet 6 mg (2 x 3 mg) PO Q24H #60 tabs 03/02/25 04/13/25 bisacodyl 10 mg rectal suppository 10 mg OK DAILY PRN constipation 04/13/25 04/13/25 (Dulcolax (bisacodyl)) diclofenac sodium 1 % topical gel 2 g topical Q8H 06/0704/13/25 (Arthritis Pain (diclofenac)) lidocaine 4 % topical patch 2 patch topical Q6H PRN pa in 04/13/25 04/13/25 (Salonpas (lidocaine)) mineral oil (Fleet Mineral Oil 118 ml OK DAILY PRN con stipation 04/13/25 04/13/25 enema) polyethylene glycol 3350 17 17 g PO DAILY PRN constipa tion 04/13/25 04/13/25 gram/dose oral powder (ClearLax) sennosides 8.6 mg tablet (senna) 8.6 mg PO DAILY PRN c onstipation 04/13/25 04/13/25 tamsulosin 0.4 mg capsule 0.4 mg PO HS 04/13/25 glycopyrrolate 0.2 mg/mL injection 0.2 mg subcut Q4H P RN Excessive 04/14/25 solution secretions #200 mL haloperidol 1 mg tablet 1 mg PO Q2H PRN Agitation #7 tabs 04/14/25 morphine concentrate 10 mg/0.5 mL 10 mg (0.5 mL) subli ngual Q2HR PRN 04/14/25 oral syringe (FOR ORAL USE ONLY) Moderate Pain (Level 4-6)/SOA #30 ea nystatin 100,000 unit/gram topical 1 applic topical BI D #15 grams 04/14/25 cream PHYSICAL EXAM AT DISCHARGE Vital Signs: Vital Signs x48h Temp Pulse Resp BP Pulse Ox 04/14/25 11:00 36.8 C 102 H 16 128/84 96 04/14/25 09:00 18 98 LABS 04/13/25 06:22 12/01/25 06:22 DIAGNOSTIC IMAGING Diagnostic Imaging Results: Final report reviewed and Read independently Diagnostic Imaging Results Comments: CT abdomen pelvis 04/11: Motion degraded exam. Moderate fecal loading may represent constipation. FOLLOW UP Follow Up: Discharging on hospice, they are supposed to follow-up 04/14 TIME SPENT Time Spent in Discharge (Minutes): 36 Discharge Plan Discharge Patient Disposition: SNF DC/Xfer Condition: Stable Medically Cleared Date:: 04/14/25 Prescriptions: New glycopyrrolate 0.2 mg/mL Solution 0.2 mg subcut Q4H PRN (Reason: Excessive secretions) Qty: 200 0RF haloperidol 1 mg Tablet 1 mg PO Q2H PRN (Reason: Agitation) Qty: 7 0RF morphine concentrate 10 mg/0.5 mL Syringe 10 mg sublingual Q2HR PRN (Reason: Moderate Pain (Level 4-6)/SOA) Qty: 30 0RF nystatin 100,000 unit/gram Cream 1 applic topical BID Qty: 15 0RF Continued timolol maleate 0.5 % drops 1 drp ophthalmic (eye) DAILY Rx Instructions: both eyes melatonin 3 mg Tablet 6 mg PO Q24H Qty: 60 0RF Rx Instructions: Administer 2 hours before bedtime (~1900) every night for delirium prevention. diclofenac sodium [Arthritis Pain (diclofenac)] 1 % gel 2 g topical Q8H Rx Instructions: apply to right knee and lower back bisacodyl [Dulcolax (bisacodyl)] 10 mg suppository 10 mg OK DAILY PRN (Reason: constipation) Rx Instructions: day 5 of no bm mineral oil [Fleet Mineral Oil] Enema 118 ml OK DAILY PRN (Reason: constipation) Rx Instructions: day 6 of no bm tamsulosin 0.4 mg Capsule 0.4 mg PO HS polyethylene glycol 3350 [ClearLax] 17 gram/dose powder 17 g PO DAILY PRN (Reason: constipation) Rx Instructions: day 3 of no bm lidocaine [Salonpas (lidocaine)] 4 % adhesive patch,medicated 2 patch topical Q6H PRN (Reason: pain) Rx Instructions: right low back at hip sennosides [senna] 8.6 mg tablet 8.6 mg PO DAILY PRN (Reason: constipation) Rx Instructions: day 4 of no bm latanoprost 0.005 % drops 1 drp ophthalmic (eye) QPM Rx Instructions: both eyes dorzolamide 2 % drops 1 drp ophthalmic (eye) BID Rx Instructions: both eyes acetaminophen 500 mg tablet 500 mg PO Q6H PRN (Reason: pain) loperamide 2 mg tablet 2 mg PO Q6H PRN (Reason: loose stool) Discontinued aspirin 81 mg Tablet,Delayed Release (Dr/Ec) 162 mg PO DAILY 22 Days Qty: 44 0RF cholecalciferol (vitamin D3) 25 mcg (1,000 unit) tablet 2,000 unit PO DAILY oxycodone 5 mg tablet 5 mg PO Q6H PRN (Reason: pain) multivitamin [Daily Multi-Vitamin] Tablet 1 tab PO DAILY naloxone [Narcan] 4 mg/actuation spray,non-aerosol 4 mg intranasal Q2M PRN (Reason: opioid overdose) Rx Instructions: spray 1 dose into ONE nostril; alternate nostrils w each dose until help arrives memantine [Namenda] 10 mg tablet 10 mg PO BID Activity Restrictions: No Restrictions Diet: Regular Care Plan Goals: You were admitted for acute alteration of mental status which was acute on chronic. You have a progressive Alzheimer's dementia. You have also came in with a urinary tract infection. You have been treated for urinary tract infection, and your acute alteration is resolved. After discussion, given that you are not eating, this is an appropriate point to transition to hospice with regards to your dementia. You are being discharged back to [facility] on hospice. Hospice is planning to see you later today. Print Language: Malaysian Patient Instructions: Hospice- Caring for Your Loved One, Dementia Caregiver Coping Tips Stand Alone Forms: SNF Discharge Follow-up Care: Debra Reza of [Primary Care Provider, [employer]] Vitals documented within 30 minutes of discharge?: Yes"
[2025-04-14 13:08] VITALS: BP 147/81; TEMP 98.1; O2SAT 92
== END 2025-04-14 12:50 | DRG 699 ==
LOC: ED 20:11 → MS2 04-12 00:16 → SUATTDRO 04-12 00:16 → MS2 04-12 00:54
PROVIDERS: ADMIT Internal Medicine; ATTEND Student in an Organized Health Care Education/Training Program
DX: R62.7 Adult failure to thrive; G30.9 Alzheimer's disease, unspecified; T83.511A Infection and inflammatory reaction due to indwelling urethral catheter, initial encounter; F02.B0 Dementia in other diseases classified elsewhere, moderate, without behavioral disturbance, psychotic disturbance, mood disturbance, and anxiety; R33.9 Retention of urine, unspecified; S72.001D Fracture of unspecified part of neck of right femur, subsequent encounter for closed fracture with routine healing; R63.0 Anorexia; Z66 Do not resuscitate; Z22.322 Carrier or suspected carrier of Methicillin resistant Staphylococcus aureus; Z68.24 Body mass index [BMI] 24.0-24.9, adult; R31.9 Hematuria, unspecified; W19.XXXD Unspecified fall, subsequent encounter; E86.0 Dehydration; I48.0 Paroxysmal atrial fibrillation; Z91.81 History of falling; Z51.5 Encounter for palliative care; Y73.1 Therapeutic (nonsurgical) and rehabilitative gastroenterology and urology devices associated with adverse incidents; B96.4 Proteus (mirabilis) (morganii) as the cause of diseases classified elsewhere; R53.1 Weakness; K59.00 Constipation, unspecified; N39.0 Urinary tract infection, site not specified; F02.80 Dementia in other diseases classified elsewhere, unspecified severity, without behavioral disturbance, psychotic disturbance, mood disturbance, and anxiety; Z96.0 Presence of urogenital implants; G93.49 Other encephalopathy